=== PATIENT | female | born 1955 | race Caucasian/White ===

== ENCOUNTER → 2020-04-20 09:37 | Outpatient (BNVA) | payer BC, SELFPAY | PROVIDERS: Family Provider Nurse Practitioner; Visit Provider Family Medicine | DX: R10.13 Epigastric pain (principal) | CPT/HCPCS: 86677 ==

== ENCOUNTER 2022-02-08 19:09 | Inpatient (IN) | payer MEDICARE, SELFPAY ==
[2022-02-08] VITALS (7 sets, daily range): BP systolic 111–138; BP diastolic 76–98; PULSE 98–155; RESP 18–45; TEMP 36.5; O2SAT 89–98; BMI 25.0
--- NOTE | 2022-02-08 19:13 | ECG_ITS ---
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 Measurements Intervals [place] Rate: 149 P: 62 NH: 84 QRS: 10 QRSD: 142 T: 144 QT: 292 QTc: 461 Interpretive Statements SINUS TACHYCARDIA WITH SHORT NH INTERVAL, POSSIBLE ATRIAL FLUTTER LEFT BUNDLE BRANCH BLOCK [120+ ms QRS DURATION, 80+ ms Q/S IN V1/V2, 85+ ms R IN I/aVL/V5/V6] No previous ECG available for comparison Electronically Signed On 02-09-2022 17:01:11 CDT by Messi Torres M.D. [id number] f
--- NOTE | 2022-02-08 19:13 | XRR_ITS ---
PROCEDURE INFORMATION: Exam: XR Chest Exam date and time: 02/08/2022 7:21 PM Age: 66 years old Clinical indication: Shortness of breath; Patient HX: Chest pain, SOB; Additional info: Cp TECHNIQUE: Imaging protocol: XR of the chest. Views: 1 view. COMPARISON: No relevant prior studies available. FINDINGS: Lungs: Increased interstitial lung markings. Ill-defined opacity in the peripheral right lung base. Pleural spaces: Potential small volume right pleural effusion. No pneumothorax. Heart/Mediastinum: Mild cardiomegaly. Bones/joints: Visualized osseous structures are intact. XR/XR chest 1V portable [id number] IMPRESSION: Ill-defined opacity in the peripheral right lung base. This may represent atelectasis or infiltrate/pneumonia. Additionally, this could represent sequela of fluid overload given mild cardiomegaly, potential small volume right pleural effusion, and increased interstitial lung markings which could reflect interstitial pulmonary edema.
--- NOTE | 2022-02-08 19:28 | W.ED.SOB ---
HPI - SOB/Dyspnea General: Chief Complaint: Shortness of Breath/Dyspnea Stated Complaint: SOB Time Seen by Provider: 02/08/22 19:13 Source: patient and EMS Mode of arrival: EMS Limitations: no limitations History of Present Illness: HPI Narrative: 66-year-old female who is a longtime smoker states she had sudden onset of shortness of breath roughly 1 to 2 hours ago. Patient is currently on CPAP with EMS and is tachypneic and tachycardic and in respiratory distress. They state that she was hypoxic on room air she denies any chest pain denies any fever she states she is feels like she cannot get a deep breath then. Associated symptoms: Deny abdominal pain, chest pain, fever(s), nausea or vomiting Review of Systems Const: Denies: fever(s), chills, body aches or change in appetite Eyes: Denies: blurry vision or eye discomfort ENMT: Denies: throat pain or dental pain Card: Denies: chest pain Resp: Reports: dyspnea GI: Denies: abdominal pain, nausea, vomiting or diarrhea : Denies: dysuria Musc: Denies: neck pain or back pain Skin/Breast: Denies: rash Neuro: Denies: headache(s) Psych: Denies: depression All/Lymph: Denies: easy bruising All/Imm: Denies: urticaria PFSH ED PFSH: Medical History (Updated 02/08/22 @ 22:49 by Chandrakant Shaver MD) Acquired hypothyroidism Diabetes GERD (gastroesophageal reflux disease) Hyperlipidemia Hypertension LBBB (left bundle branch block) Vitamin D insufficiency Surgical History History of cholecystectomy (~2007) Family History Other Aneurysm CAD (coronary artery disease) CHF (congestive heart failure) Cancer Diabetes Social History Smoking and tobacco status: current every day smoker Quit status (tobacco): not considering quitting Smoking risk assessment/counseling performed?: Yes Alcohol intake: never Marital status: / Current occupational status: employed Physical Exam Const: COMMON NORMALS: patient oriented x3 GENERAL APPEARANCE: in distress and ill appearing HENMT: COMMON NORMALS: normocephalic and atraumatic HEAD & SCALP: normocephalic and atraumatic Eye: COMMON NORMALS: Equal, round and reactive pupils present and EOMs intact bilaterally PUPIL: Yes Equal, round and reactive pupils present Neck/C-Spine: COMMON NORMALS: full ROM and supple Chest: COMMONS NORMALS: normal inspection of the chest and normal palpation of entire chest wall Resp: EFFORT & INSPECTION: Yes tachypneic, Yes respiratory distress, Yes labored and Yes grunting AUSCULTATION: diminished lung sounds Cardio: COMMON NORMALS: regular rhythm and No murmurs present (Cardio) RATE: tachycardic RHYTHM: regular rhythm GI: COMMON NORMALS: Normal to inspection, nondistended, normoactive bowel sounds present, Soft to palpation, non-tender and no masses PALPATION: Yes Soft to palpation Extremity: COMMON NORMALS: normal to inspection and full ROM Neuro: COMMON NORMALS: patient oriented x3, moves all extremities and no focal motor deficits Psych: COMMON NORMALS: mental status grossly normal, Normal thought process present and cooperative THOUGHT PROCESS: Normal thought process present Skin: COMMON NORMALS: no rashes or lesions noted and no wounds GENERAL SKIN EXAM: no rashes or lesions noted Course Vital Signs: Vital signs: Vital Signs Pulse Rate 123 H 02/08/22 22:34 Respiratory Rate 20 H 02/08/22 22:34 Blood Pressure 126/90 02/08/22 22:34 Pulse Oximetry 95 02/08/22 22:34 MDM - SOB/Dyspnea Medical Decision Making Patient presents here with congestive heart failure with shortness of breath she is improving here on BiPAP did trial her off BiPAP she was requiring 5 L and became more short of breath so placed her back on the BiPAP CT shows no signs of pulmonary embolism spoke to hospitalist and will admit she has had no chest pain here. She has been tachycardic but is been in sinus tach. Lab Data : 02/08/22 19:35 02/08/22 19:35 Labs/Radiology: Radiology Impressions Chest X-Ray 02/08/22 19:13 IMPRESSION: Ill-defined opacity in the peripheral right lung base. This may represent atelectasis or infiltrate/pneumonia. Additionally, this could represent sequela of fluid overload given mild cardiomegaly, potential small volume right pleural effusion, and increased interstitial lung markings which could reflect interstitial pulmonary edema. Chest CTA 02/08/22 19:59 IMPRESSION: 1. Negative for pulmonary embolism. 2. Sequela of fluid overload/pulmonary edema with small volume pleural effusions, right greater than left, and findings suggestive of interstitial pulmonary edema. Atelectasis at the posterior lung bases. Laboratory Results WBC 12.0 10^3/uL (4.0-10.0) H 02/08/22 19:35 RBC 4.86 10^6/uL (4.1-5.3) 02/08/22 19:35 Hgb 14.8 g/dL (11.5-15.3) 02/08/22 19:35 Hct 44.9 % (37.0-47.0) 02/08/22 19:35 MCV 92.4 fl (81-99) 02/08/22 19:35 MCH 30.5 pg (28.0-34.0) 02/08/22 19:35 MCHC 33.0 g/dL (30.0-36.0) 02/08/22 19:35 RDW 14.8 % (12.1-15.1) 02/08/22 19:35 Plt Count 366 10^3/cmm (130-400) 02/08/22 19:35 MPV 9.8 fL (7.4-10.4) 02/08/22 19:35 Neut % (Auto) 85.5 % 02/08/22 19:35 Lymph % (Auto) 9.4 % 02/08/22 19:35 Louisa % (Auto) 3.6 % 02/08/22 19:35 Eos % (Auto) 0.6 % 02/08/22 19:35 Baso % (Auto) 0.3 % 02/08/22 19:35 Neut # (Auto) 10.28 10^3/uL (1.8-7.7) H 02/08/22 19:35 Lymph # (Auto) 1.1 10^3/uL (0.8-4.8) 02/08/22 19:35 Louisa # (Auto) 0.4 10^3/uL (0.2-0.9) 02/08/22 19:35 Eos # (Auto) 0.1 10^3/uL (0.0-0.8) 02/08/22 19:35 Baso # (Auto) 0.0 10^3/uL (0.0-0.1) 02/08/22 19:35 Nucleated RBC % (auto) 0 % 02/08/22 19:35 Nucleated RBCs # 0.0 /100WBC 02/08/22 19:35 PT 14.40 SECONDS (12.1-14.9) 02/08/22 19:35 INR 1.08 (0.8-1.2) 02/08/22 19:35 D-Dimer 0.99 ug/mIFEU (0-0.59) H 02/08/22 19:35 Specimen Type Arterial 02/08/22 20:45 Sample Site Brachial, right 02/08/22 20:45 ABG pH 7.39 (7.35-7.45) 02/08/22 20:45 ABG pCO2 38.7 mmHg (35-45) 02/08/22 20:45 ABG pO2 241.0 mmHg (80.0-100.0) H 02/08/22 20:45 ABG HCO3 23.3 mmol/L (22-26) 02/08/22 20:45 ABG Base Excess -1.4 mmol/L (-2.0-2.0) 02/08/22 20:45 Malik Test N/a 02/08/22 20:45 Hematocrit 42.3 % (37-47) 02/08/22 20:45 O2 Delivery Device Bipap 02/08/22 20:45 FiO2 65.0 % 02/08/22 20:45 Hostess Party Sales Representative ID Hinja 02/08/22 20:45 Sodium 137 mmol/L (136-145) 02/08/22 19:35 Potassium 4.6 mmol/L (3.5-5.1) 02/08/22 19:35 Chloride 100 mmol/L (98-107) 02/08/22 19:35 Carbon Dioxide 20 mmol/L (22-29) L 02/08/22 19:35 Anion Gap 21.6 (5-19) H 02/08/22 19:35 BUN 15 mg/dL (8-23) 02/08/22 19:35 Creatinine 1.0 mg/dL (0.5-0.9) H 02/08/22 19:35 GFR Calculation 55.6 mL/min (90-130) L 02/08/22 19:35 Glucose 253 mg/dL (65-115) H 02/08/22 19:35 Calculated Osmolality 293 mOsm/kg (285-295) 02/08/22 19:35 Calcium 9.1 mg/dL (8.5-10.5) 02/08/22 19:35 Total Bilirubin 0.2 mg/dL (0.15-1.2) 02/08/22 19:35 AST 41 U/L (0-32) H 02/08/22 19:35 ALT 50 U/L (0-33) H 02/08/22 19:35 Alkaline Phosphatase 101 IU/L (35-105) 02/08/22 19:35 Troponin T Baseline 78 ng/L (0-10) H 02/08/22 19:35 NT-Pro-B Natriuret Pep 7449 pg/mL (0-125) H 02/08/22 19:35 Total Protein 6.5 g/dL (6.6-8.7) L 02/08/22 19:35 Albumin 4.4 g/dL (3.5-5.2) 02/08/22 19:35 Globulin 2.1 g/dL (1.3-4.6) 02/08/22 19:35 EKG Data EKG 1: I personally reviewed and interpreted this EKG as follows: EKG Interpretation Date: 02/08/22 EKG interpretation time: 19:16 Interpretation: sinus tach hr [address] elevation lbbb qrs 142 qtc 377 EKG 2: I personally reviewed and interpreted this EKG as follows: EKG Interpretation Date: 02/08/22 EKG interpretation time: 20:32 Interpretation: sinus tach hr [address] elevation lbbb qrs 145 qtc 431 Critical Care Time Critical Care Time: Critical Care Time: Yes Total Critical Care Time: 40 Attestation: The high probability of a clinically significant, sudden or life threatening deterioration of the patient's resp system(s) required my full and direct attention, intervention and personal management. The critical care time is as shown. This time is in addition to time spent performing any reported procedures but includes the following: [x] Data and vital sign review and interpretation [x] Patient assessment, examination and intervention [x] Documentation [x] Medication orders and management Discharge Plan Discharge Patient Disposition: Admitted As Inpatient Admit Provider: William Dumas Clinical Impression: Congestive heart failure Condition: Stable Coding Level of Care Code ED Relish Maker for Chg Fwd Exam Comprehensive
[2022-02-08 19:44] LABS: Basophils % 0.3 %; Eosinophils # 0.1 10^3/uL (0.0-0.8); Eosinophils % 0.6 %; Hematocrit 44.9 % (37.0-47.0); Hemoglobin 14.8 g/dL (11.5-15.3); Lymphocytes # 1.1 10^3/uL (0.8-4.8); Lymphocytes % 9.4 %; Mean Corpuscular Hemoglobin 30.5 pg (28.0-34.0); Mean Corpuscular Volume 92.4 fl (81-99); Mean Platelet Volume 9.8 fL (7.4-10.4); Monocytes # 0.4 10^3/uL (0.2-0.9); Monocytes % 3.6 %; Neutrophils # 10.28 10^3/uL (1.8-7.7); Neutrophils % 85.5 %; Nucleated Red Blood Cells % 0 %; Platelet Count 366 10^3/cmm (130-400); Red Blood Count 4.86 10^6/uL (4.1-5.3); Red Cell Distribution Width 14.8 % (12.1-15.1)
[2022-02-08 19:55] LABS: INR 1.08 (0.8-1.2)
[2022-02-08 19:57] LABS: D Dimer 0.99 ug/mIFEU (0-0.59)
--- NOTE | 2022-02-08 19:59 | CTR_ITS ---
PROCEDURE INFORMATION: Exam: CTA Chest With Contrast Exam date and time: 02/08/2022 9:29 PM Age: 66 years old Clinical indication: Shortness of breath; Additional info: SOB TECHNIQUE: Imaging protocol: Computed tomographic angiography of the chest with contrast. 3D rendering (Not supervised by radiologist): MIP and/or 3D reconstructed images were created by the technologist. Radiation optimization: All CT scans at this facility use at least one of these dose optimization techniques: automated exposure control; mA and/or kV adjustment per patient size (includes targeted exams where dose is matched to clinical indication); or iterative reconstruction. Contrast material: OMNIPAQUE 350; Contrast volume: 75 ml; Contrast route: INTRAVENOUS (IV); COMPARISON: CR (CHEST, ) 02/08/2022 7:21 PM RADIATION DOSE METRICS: Total DLP (mGy-cm): 545.03 FINDINGS: Pulmonary arteries: Normal. No pulmonary emboli. Aorta: Unremarkable. No aortic aneurysm. No aortic dissection. Lungs: Atelectasis noted at the posterior lung bases adjacent to the effusions. No consolidation. Interlobular septal thickening noted within both lungs. Pleural spaces: Small volume bilateral pleural effusions, right greater than left. No pneumothorax. Heart: Coronary artery calcifications noted. Cardiomegaly. No pericardial effusion. Lymph nodes: Unremarkable. No enlarged lymph nodes. Bones/joints: Unremarkable. No acute fracture. Soft tissues: Unremarkable. CT/CT angio chest PE protcl [id number] IMPRESSION: 1. Negative for pulmonary embolism. 2. Sequela of fluid overload/pulmonary edema with small volume pleural effusions, right greater than left, and findings suggestive of interstitial pulmonary edema. Atelectasis at the posterior lung bases.
[2022-02-08 20:07] LABS: Troponin(5th) Baseline 78 ng/L (0-10)
[2022-02-08 20:17] LABS: Alanine Aminotransferase 50 U/L (0-33); Albumin Level 4.4 g/dL (3.5-5.2); Alkaline Phosphatase 101 IU/L (35-105); Aspartate Amino Transferase 41 U/L (0-32); Blood Urea Nitrogen 15 mg/dL (8-23); Calcium 9.1 mg/dL (8.5-10.5); Carbon Dioxide 20 mmol/L (22-29); Chloride 100 mmol/L (98-107); Globulin 2.1 g/dL (1.3-4.6); Glomerular Filtration Rate 55.6 mL/min (90-130); Glucose 253 mg/dL (65-115); NT Pro B Type Natriuretic Pept 7449 pg/mL (0-125); Osmolality Calculated 293 mOsm/kg (285-295); Sodium 137 mmol/L (136-145); Total Bilirubin 0.2 mg/dL (0.15-1.2); Total Protein 6.5 g/dL (6.6-8.7)
[2022-02-08 20:20] LABS: Anion Gap 21.6 (5-19); Potassium 4.6 mmol/L (3.5-5.1)
[2022-02-08 20:47] LABS: ABG PCO2 38.7 mmHg (35-45); ABG PH Result 7.39 (7.35-7.45); Arterial Blood Gas Hematocrit 42.3 % (37-47); Base Excess ABG -1.4 mmol/L (-2.0-2.0); Blood Gas Sample Site Brachial, right; Blood Gas Sample Type Arterial; HCO3 ABG 23.3 mmol/L (22-26); Oxygen Device BIPAP
--- NOTE | 2022-02-08 21:13 | ECG_ITS ---
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 Measurements Intervals [place] Rate: 116 P: 64 [place]: 152 QRS: 22 QRSD: 145 T: 167 QT: 362 QTc: 503 Interpretive Statements SINUS TACHYCARDIA LEFT ATRIAL ENLARGEMENT [-0.15mV P-WAVE IN V1/V2] LEFT BUNDLE BRANCH BLOCK [120+ ms QRS DURATION, 80+ ms Q/S IN V1/V2, 85+ ms R IN I/aVL/V5/V6] Compared to ECG 02/08/2022 19:16:44 Atrial abnormality now present Electronically Signed On 02-09-2022 17:03:52 CDT by Messi Torres M.D. [email or web address]/[id number] f
[2022-02-08] MEDS: iohexol 350 mg/mL 100 mL Btl IV (21:30)
[2022-02-08] MEDS: cefTRIAXone 1,000 MG in sodium chloride 0.9% (plus) 50 ML 100 MG IV (22:09)
[2022-02-08] MEDS: FUROsemide 10 mg/mL SDV 10mL 60 MG IVP (22:27)
[2022-02-08] MEDS: azithromycin 500 MG in sodium chloride 0.9% 250 ML 250 MG IV (22:28)
--- NOTE | 2022-02-08 22:51 | P.HP_ITS ---
Providers/Chief Complaint Admitting Physician: William Dumas MD Chief Complaint: SOB History of Present Illness Jessica Larkin is a 66 year old female with past medical history of hypertension hypothyroidism chronic smoker 2 pack a day for the last 50 years, came in with worsening shortness of breath going on for about a month, accompanied with orthopnea and PND.she is also complaining of productive cough with whitish sputum. She is currently denying chest pain, palpitation, fever, nausea vomiting, diaphoresis. Pertinent imaging studies done in the ER: X-ray chest: Suggestive of pulmonary vascular congestion CTA chest: Negative for pulmonary embolism, small bilateral pleural effusion right greater than left, Interstitial edema.Atelectasis at the posterior lung bases. EKG sinus tach with left bundle branch block Pertinent labs: WBC:12 , H&H 14 and 44, PLT : 366 , serum sodium 137 serum potassium 4.6, BUN serum creatinine 15/ 1 , AST 41, ALT 50,ALP: 101 , Troponin:78,264, 386 proBNP: 7449 ABG: pH 7.39 PCO2 38, PO2 241 , FIO2: 65 % Review of Systems General: Reports: 10 or more systems reviewed and unremarkable except in HPI and below Const: Denies: fever(s), chills, body aches, change in appetite or diaphoresis Card: Reports: swelling of feet/ankles, dyspnea on exertion and orthopnea; Denies: palpitations, edema or leg pain with exertion Resp: Reports: dyspnea, productive cough and wheezing; Denies: pain on inspiration GI: Denies: abdominal pain, nausea, vomiting, diarrhea or constipation : Denies: flank pain Musc: Reports: extremity swelling; Denies: back pain or extremity pain Neuro: Denies: headache(s), difficulty walking or confusion Medications/Allergies Home Medications Medication Instructions Recorded Confirmed Last Taken Type chromium 100 mcg tablet 200 mcg PO DAILY tab 11/09/19 04/20/20 Unknown History levothyroxine 125 mcg tablet 125 mcg PO DAILY 11/09/19 04/20/20 Unknown History liothyronine 5 mcg tablet 5 mcg PO DAILY 11/09/19 04/20/20 Unknown History cholecalciferol (vitamin D3) 125 5,000 unit PO DAILY #30 tab 04/20/20 04/20/20 Unknown Rx mcg (5,000 unit) tablet (Vitamin D3) omeprazole 40 mg capsule,delayed 40 mg PO BID #60 cap 04/20/20 04/20/20 Unknown Rx release potassium chloride 10 mEq 10 meq PO DAILY #30 tab 04/20/20 04/20/20 Unknown Rx tablet,extended release selenium 50 mcg tablet 50 mcg PO DAILY 04/20/20 04/20/20 Unknown History sucralfate 1 gram tablet (Carafate) 1 gm PO QID #120 tab 04/20/20 04/20/20 Unknown Rx albuterol sulfate 90 mcg/actuation See Rx Instructions .ROUTE 04/28/21 Unknown Rx aerosol inhaler .COMPLEX #18 g furosemide 20 mg tablet See Rx Instructions .ROUTE 05/12/21 Unknown Rx .COMPLEX #30 tab lisinopril 40 mg tablet See Rx Instructions .ROUTE 09/08/21 Unknown Rx .COMPLEX #30 tab Allergies Allergy/AdvReac Type Severity Reaction Status Date / Time levofloxacin [From Levaquin] Allergy RASH Verified 04/20/20 09:13 PFSH Acute PFSH: Medical History (Updated 02/09/22 @ 00:35 by William Dumas MD) Acquired hypothyroidism Diabetes GERD (gastroesophageal reflux disease) Hyperlipidemia Hypertension LBBB (left bundle branch block) Vitamin D insufficiency Surgical History History of cholecystectomy (~2007) Family History Other Aneurysm CAD (coronary artery disease) CHF (congestive heart failure) Cancer Diabetes Social History Smoking and tobacco status: current every day smoker Quit status (tobacco): not considering quitting Smoking risk assessment/counseling performed?: Yes Alcohol intake: never Marital status: / Current occupational status: employed Vitals/I&O/Wt Last Vital Signs Pulse 123 H 02/08/22 22:34 Resp 20 H 02/08/22 22:34 BP 126/90 02/08/22 22:34 Pulse Ox 95 02/08/22 22:34 Weight last 48 hrs Weight 70.307 kg Physical Exam Const: COMMON NORMALS: patient oriented x3 HENMT: COMMON NORMALS: normocephalic and atraumatic HEAD & SCALP: normocephalic and atraumatic Resp: EFFORT & INSPECTION: Yes symmetric chest movement AUSCULTATION: clear to auscultation bilaterally OTHER: Patient is tachypneic tachycardic, bilateral expiratory wheezing, diminished air entry bilaterally Cardio: COMMON NORMALS: regular rate, regular rhythm, S1 normal heart sound present, S2 normal heart sound present, No gallops present (Cardio), No murmurs present (Cardio), No rub (Cardio) and Peripheral pulses 2+ throughout RATE: regular rate RHYTHM: regular rhythm HEART SOUNDS: S1 normal heart sound present and S2 normal heart sound present PERIPHERAL PULSES: Peripheral pulses 2+ throughout GI: COMMON NORMALS: Normal to inspection, nondistended, normoactive bowel sounds present, Soft to palpation, non-tender, No hepatosplenomegaly present and no masses AUSCULTATION: Yes normoactive bowel sounds PALPATION: Yes Soft to palpation and Yes No hepatosplenomegaly present RECTAL EXAM: deferred Extremity: COMMON NORMALS: no clubbing, cyanosis or edema and no pedal edema Neuro: COMMON NORMALS: patient oriented x3 Data : 02/09/22 02:04 02/09/22 02:04 Micro: Microbiology 02/08/22 20:42 Blood Culture - Preliminary Blood SPECIMEN COLLECTED 02/08/22 20:20 Blood Culture - Preliminary Blood SPECIMEN COLLECTED A&P Assessment and plan (1) Congestive heart failure: Status: Acute (2) LBBB (left bundle branch block): Status: Acute (3) Acquired hypothyroidism: Status: Acute (4) Hypertension: Status: Acute (5) Hyperlipidemia: Status: Acute (6) Vitamin D insufficiency: Status: Acute (7) Dyspnea: Status: Acute (8) NSTEMI (non-ST elevated myocardial infarction): Status: Acute Plan 66 year old female with past medical history of hypertension hypothyroidism chronic smoker 2 pack a day for the last 50 years, came in with worsening shortness of breath going on for about a month, accompanied with orthopnea and PND.she is also complaining of productive cough with whitish sputum. She is currently denying chest pain, palpitation, fever, nausea vomiting, diaphoresis. Assessment: NSTEMI Decompensated heart failure: COPD exacerbation Hypertension Hypothyroidism Chronic smoking Plan: 2D echo TSH Lasix 40 IV twice daily Lisinopril 40 mg p.o. daily Metoprolol tartrate 12.5 mg p.o. twice daily Aspirin 81 mg p.o. daily, statin, beta-coy, therapeutic anticoagulation Intake output charting Daily weight k>4, mg>2 Continue telemetry monitoring Continue BiPAP for now DuoNebs Solu-Medrol 60 mg IV twice daily Azithromycin IV daily Continue levothyroxine Lovenox for DVT prophylaxis Cardiology on board CODE STATUS: Limited resuscitation Attestations Medical Necessity Statement*: Patient is to be in hospital for management of decompensated heart failure.Anticipated length of stay greater than 2 midnights. Coding Level of Care Code Acute Broadcast Correspondent for [facility] Fwd Exam Detailed Diagnoses Congestive heart failure I50.9 LBBB (left bundle branch block) I44.7 Acquired hypothyroidism E03.9 Hypertension I10 Hyperlipidemia E78.5 Vitamin D insufficiency E55.9 Dyspnea R06.00 NSTEMI (non-ST elevated myocardial infarction) I21.4
[2022-02-08] MEDS: enoxaparin 40 mg/0.4 mL Syringe SUBCUT (23:53)
[2022-02-08] MEDS: LORazepam 1 mg Tablet PO (23:54)
[2022-02-09] VITALS (17 sets, daily range): BP systolic 93–120; BP diastolic 56–83; PULSE 101–117; RESP 15–18; TEMP 36.6–37.2; O2SAT 90–99
[2022-02-09 00:27] LABS: Troponin 5 2HR 264.4 ng/L (0-10); Troponin 5 2HR Delta 186.4 ABS# (0-10)
[2022-02-09] MEDS: enoxaparin 30 mg/0.3 mL Syringe SUBCUT (00:50)
--- NOTE | 2022-02-09 01:13 | ECG_ITS ---
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 Measurements Intervals [place] Rate: 102 P: 72 VT: 138 QRS: -11 QRSD: 148 T: 146 QT: 391 QTc: 511 Interpretive Statements SINUS TACHYCARDIA LEFT ATRIAL ENLARGEMENT [-0.15mV P-WAVE IN V1/V2] LEFT BUNDLE BRANCH BLOCK [120+ ms QRS DURATION, 80+ ms Q/S IN V1/V2, 85+ ms R IN I/aVL/V5/V6] Compared to ECG 02/08/2022 20:32:09 No significant changes Electronically Signed On 02-09-2022 17:02:52 CDT by Messi Torres M.D. [id number]
[2022-02-09 02:35] LABS: Basophils % 0.2 %; Eosinophils % 0.1 %; Hemoglobin 13.5 g/dL (11.5-15.3); Lymphocytes # 0.5 10^3/uL (0.8-4.8); Lymphocytes % 4.6 %; Mean Corpuscular HGB Conc 32.1 g/dL (30.0-36.0); Mean Corpuscular Hemoglobin 30.6 pg (28.0-34.0); Mean Corpuscular Volume 95.2 fl (81-99); Mean Platelet Volume 9.7 fL (7.4-10.4); Monocytes # 0.2 10^3/uL (0.2-0.9); Monocytes % 2.3 %; Neutrophils # 9.46 10^3/uL (1.8-7.7); Neutrophils % 92.3 %; Nucleated Red Blood Cells % 0 %; Platelet Count 256 10^3/cmm (130-400); Red Blood Count 4.41 10^6/uL (4.1-5.3); Red Cell Distribution Width 14.7 % (12.1-15.1); White Blood Count 10.3 10^3/uL (4.0-10.0)
[2022-02-09 03:04] LABS: Alanine Aminotransferase 44 U/L (0-33); Albumin Level 3.9 g/dL (3.5-5.2); Alkaline Phosphatase 82 IU/L (35-105); Anion Gap 15.2 (5-19); Aspartate Amino Transferase 41 U/L (0-32); Blood Urea Nitrogen 15 mg/dL (8-23); Calcium 8.9 mg/dL (8.5-10.5); Carbon Dioxide 26 mmol/L (22-29); Chloride 101 mmol/L (98-107); Globulin 2.5 g/dL (1.3-4.6); Glomerular Filtration Rate 62.8 mL/min (90-130); Glucose 116 mg/dL (65-115); Magnesium 2.4 mg/dL (1.7-2.3); Osmolality Calculated 288 mOsm/kg (285-295); Potassium 4.2 mmol/L (3.5-5.1); Sodium 138 mmol/L (136-145); Thyroid Stimulating Hormone 1.44 uIU/mL (0.27-4.20); Total Bilirubin 0.4 mg/dL (0.15-1.2); Total Protein 6.4 g/dL (6.6-8.7)
[2022-02-09 03:43] LABS: Troponin 5 6HR 386.4 ng/L (0-10); Troponin 5 6HR Delta 308.4 ng/L (0-12)
[2022-02-09 06:06] LABS: INR 1.15 (0.8-1.2)
[2022-02-09 06:07] LABS: Partial Thromboplastin Time 35.9 SECONDS (23.9-36.7)
[2022-02-09] MEDS: FUROsemide 10 mg/mL SDV 4mL 40 MG IVP ×2 (06:34→18:07)
[2022-02-09] MEDS: azithromycin 500 MG in sodium chloride 0.9% 250 ML 250 MG IV (06:35)
--- NOTE | 2022-02-09 07:08 | PM.CONSULT ---
Providers/Reason For Consult Consulting Physician/Specialty*: Messi Torres MD/Cardiology Reason for Consult*: Congestive heart failure/ NSTEMI Requesting Physician: Dr Dumas Attending Physician: William uDmas MD History of Present Illness History of Present Illness Jessica Larkin is a 66 year old female with past medical history of hypertension, hypothyroidism, current smoker who presented to the hospital with 3 weeks of worsening shortness of breath. It is accompanied with orthopnea. She is also noticing productive cough for the same duration. She denies chest pain however says that at times she has felt pressure. EKG showed sinus tachycardia with a left bundle branch block. Her troponin trended up from 78 to 386 at 6 hours. NT proBNP is significantly elevated and is 7449. CXR shows small bilateral pleural effusion and pulmonary edema. Review of Systems General: Reports: 10 or more systems reviewed and unremarkable except in HPI and below Const: Denies: fever(s), chills, body aches, change in appetite or diaphoresis Card: Reports: swelling of feet/ankles, dyspnea on exertion and orthopnea; Denies: palpitations, edema or leg pain with exertion Resp: Reports: dyspnea, productive cough and wheezing; Denies: pain on inspiration GI: Denies: abdominal pain, nausea, vomiting, diarrhea or constipation : Denies: flank pain Musc: Reports: extremity swelling; Denies: back pain or extremity pain Neuro: Denies: headache(s), difficulty walking or confusion Medications/Allergies Home Medications Medication Instructions Recorded Confirmed Last Taken Type liothyronine 5 mcg tablet 5 mcg PO DAILY 11/09/19 02/09/22 Unknown History cholecalciferol (vitamin D3) 125 5,000 unit PO DAILY #30 tab 04/20/20 02/09/22 Unknown Rx mcg (5,000 unit) tablet (Vitamin D3) omeprazole 40 mg capsule,delayed 40 mg PO BID #60 cap 04/20/20 02/09/22 Unknown Rx release potassium chloride 10 mEq 10 meq PO DAILY #30 tab 04/20/20 02/09/22 Unknown Rx tablet,extended release selenium 50 mcg tablet 50 mcg PO DAILY 04/20/20 02/09/22 Unknown History sucralfate 1 gram tablet (Carafate) 1 gm PO QID #120 tab 04/20/20 02/09/22 Unknown Rx albuterol sulfate 90 mcg/actuation See Rx Instructions .ROUTE 08/27/21 06/10/22 Unknown Rx aerosol inhaler .COMPLEX #18 g alprazolam 0.25 mg tablet 0.25 mg PO DAILY PRN 02/09/22 02/09/22 Unknown History ascorbic acid (vitamin C) 250 mg 250 mg PO DAILY 02/09/22 02/09/22 Unknown History tablet (Vitamin C) aspirin 81 mg tablet,delayed 81 mg PO DAILY 02/09/22 02/09/22 Unknown History release budesonide 0.5 mg/2 mL suspension 0.5 mg INHALATION BID 02/09/22 02/09/22 Unknown History for nebulization buspirone 15 mg tablet 15 mg PO BID 02/09/22 02/09/22 Unknown History chromium picolinate 200 mcg tablet 200 mcg PO DAILY 02/09/22 02/09/22 Unknown History furosemide 20 mg tablet 20 mg PO DAILY 02/09/22 02/09/22 Unknown History ipratropium 0.5 mg-albuterol 3 mg 3 ml INHALATION QID 02/09/22 02/09/22 Unknown History (2.5 mg base)/3 mL nebulization soln levothyroxine 100 mcg tablet 100 mcg PO DAILY 02/09/22 02/09/22 Unknown History (Synthroid) lisinopril 40 mg tablet 40 mg PO DAILY 02/09/22 02/09/22 Unknown History magnesium 30 mg tablet 30 mg PO DAILY 02/09/22 02/09/22 Unknown History niacin 50 mg tablet 50 mg PO DAILY 02/09/22 02/09/22 Unknown History zinc 50 mg tablet 50 mg PO DAILY 02/09/22 02/09/22 Unknown History Allergies Allergy/AdvReac Type Severity Reaction Status Date / Time levofloxacin [From Levaquin] Allergy RASH Verified 02/09/22 09:14 Current Medications Generic Name Dose Route Start Last Admin Trade Name Freq PRN Reason Stop Dose Admin Furosemide 40 mg 02/09/22 07:00 02/09/22 06:34 Furosemide 10 Mg/Ml Sdv 4ml IVP 40 mg Q12H MADIE Administration Azithromycin 500 mg/ Sodium 250 mls @ 250 mls/hr 02/09/22 07:00 02/09/22 06:35 Chloride IV 250 mls/hr Q24H MADIE Administration Protocol Lorazepam 1 mg 02/08/22 23:12 02/08/22 23:54 Lorazepam 1 Mg Tablet PO 1 mg TID PRN Administration ANXIETY Methylprednisolone Sodium Succinate 60 mg 02/08/22 23:15 02/08/22 23:53 Methylprednisolone Sod Succ 125 Mg/2 Ml Inj IVP 60 mg Q12H MADIE Administration PFSH Acute PFSH: Medical History Acquired hypothyroidism Diabetes GERD (gastroesophageal reflux disease) Hyperlipidemia Hypertension LBBB (left bundle branch block) Vitamin D insufficiency Surgical History History of cholecystectomy (~2007) Family History Other Aneurysm CAD (coronary artery disease) CHF (congestive heart failure) Cancer Diabetes Social History Smoking and tobacco status: current every day smoker Quit status (tobacco): not considering quitting Smoking risk assessment/counseling performed?: Yes Alcohol intake: never Marital status: / Current occupational status: employed Vitals/I&O/Wt Last Vital Signs Temp 98.8 F 02/09/22 04:00 Pulse 107 H 02/09/22 05:25 Resp 16 02/09/22 04:00 BP 120/83 02/09/22 04:00 Pulse Ox 99 02/09/22 05:25 02/08/22 02/09/22 02/09/22 22:59 06:59 14:59 Intake Total 300 / 300 Balance 300 / 300 Weight last 48 hrs Weight 156 lb 12.8 oz Weight 155 lb Physical Exam Narrative: GENERAL: Patient is alert, awake and oriented x3. [] NECK: No jugular vein distension. [] HEENT: No cyanosis. No icterus. No pallor. [] HEART: Regular S1 and S2. Grade 3/6 systolic murmur LUNGS: Mild crackles bilaterally ABDOMEN: Soft, nontender and nondistended. Positive bowel sounds. No guarding, rebound or tenderness. [] CENTRAL NERVOUS SYSTEM: Grossly nonfocal. [] EXTREMITIES: Lower extremities with 1+ edema bilaterally. Pulses palpable in the lower extremities, both dorsalis pedis and posterior tibial. [] Data : 02/09/22 02:04 02/09/22 02:04 Micro: Microbiology 02/08/22 20:42 Blood Culture - Preliminary Blood SPECIMEN COLLECTED 02/08/22 20:20 Blood Culture - Preliminary Blood SPECIMEN COLLECTED A&P Assessment and plan (1) NSTEMI (non-ST elevated myocardial infarction): Status: Acute (2) Congestive heart failure: Status: Acute (3) LBBB (left bundle branch block): Status: Acute (4) Diabetes: Status: Acute (5) Hypertension: Status: Acute (6) Hyperlipidemia: Status: Acute Plan Has presented with congestive heart failure symptoms and has significant troponin elevation. She is significantly volume overloaded at this time. We will diurese her. Once she is euvolemic, will need a coronary angiogram. Continue IV Lasix 40 mg twice daily. Continue aspirin and IV anticoagulation. Order echocardiogram Strict I and Os. Thank you for involving with us with care of this patient. We will continue to follow. Please call with questions. Consult Attestations Medical Necessity Statement: Care expected to cross 2 midnights. 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
[2022-02-09] MEDS: levothyroxine 125 mcg Tablet PO (08:35)
[2022-02-09] MEDS: pantoprazole DR 40 mg Tablet PO (08:35)
[2022-02-09] MEDS: potassium chloride ER 10 mEq Tablet PO (08:35)
[2022-02-09] MEDS: aspirin 81 mg EC Tablet PO (08:35)
[2022-02-09] MEDS: liothyronine 5 mcg Tablet PO (08:37)
[2022-02-09] MEDS: enoxaparin 80 mg/0.8 mL Syringe 70 MG SUBCUT ×2 (08:37→19:52)
[2022-02-09] MEDS: LORazepam 1 mg Tablet PO (08:40)
[2022-02-09] MEDS: metoprolol tartrate 25 mg Tablet 12.5 MG PO ×2 (08:40→19:52)
--- NOTE | 2022-02-09 08:45 | PC.NURSE ---
patient expressed concerns about low blood pressure spoke with Dr nogueira at bedside instructions received to hold lisinopril at this time
[2022-02-09] MEDS: ipratropium-albuterol 3 mL Neb INHALATION ×3 (09:19→20:35)
--- NOTE | 2022-02-09 11:55 | PC.CHAP ---
Pastoral Care Encounter/Spiritual Assessment Type of Contact [] Declined parachute marker visit [] Patient/Family/Request visit [] Outpatient visit [] Follow-up visit [] Physician referral [] Code/Alert [x] Routine visit [] Staff referral [] Actively dying [] Patient sleeping [] Family support [] x [] Out of room [] Palliative care [] [] Receiving care in room [] Pre-surgical visit [] Trauma [] Long length of stay [] ICU visit [] Other: Relational/Emotional Strength [x] Patient feels connected with others/family/visitors/staff [] Distress [] Loneliness/isolation [] Abandonment Spirituality of Patient [x] Person of Nayeli [x] Attends Jew of their Nayeli [x] Believes in Prayer [] Reads Bible or Scientologist materials [] There are Spiritual issues to be addressed 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 Interventions [x] Prayer x[] Active listening [x] Non-anxious presence []x Spiritual/emotional support [] Crisis/trauma care [] Spiritual counseling [] Bereavement support [] Provided bereavement packet [] Provided Bible/devotional materials [] Provided toy/stuffed animal, coloring book to patient or family member [] Provided Communion [] Anointing/[place] [] Salvation [x] Completed spiritual assessment [] Other: Impact on Illness or Injury [] Angry [] Fearful [] Anxious [] Often cries [] Exhaustion [] Unable to work [] Unable to attend tenriism [] Unable to walk/stand [] Unable to read [] Unable to drive [] Unable to eat/drink [] Unable to sleep [] Unable to be with family [] Patient intubated [] Other: Summary Time spent with patient 10 min
--- NOTE | 2022-02-09 12:05 | P.PN_ITS ---
Subjective Subjective: Seen this AM. Patient is on nasal cannula oxygen 2 L. She states all this is new for her. She has been having progressively worsening shortness of breath over the course of the last couple of weeks. Also since last 2 weeks she has been noticing swelling in her lower extremities and having more and more shortness of breath. She states her mother has a history of congestive heart failure. She is also a smoker and has underlying COPD. Vitals/I&O/Wt Last Vital Signs Temp 99.0 F 02/09/22 11:35 Pulse 110 H 02/09/22 11:35 Resp 18 02/09/22 11:35 BP 93/56 02/09/22 11:35 Pulse Ox 95 02/09/22 11:35 02/08/22 02/09/22 02/09/22 22:59 06:59 14:59 Intake Total 300 / 300 250 / 250 Balance 300 / 300 250 / 250 Weight last 48 hrs Weight 71.123 kg Weight 70.307 kg Physical Exam Narrative: General: Alert oriented x3, patient seen standing up at the bedside with nasal cannula oxygen talking to her daughter. Frail-appearing. No conversational dyspnea no active shortness of breath when seen, no acute distress. HEENT: Normocephalic, atraumatic, EOMI, breathing normally on 2 L nasal cannula Cardio: Regular rate rhythm, normal S1-S2, no murmurs, JVD elevated Respiratory: Bibasilar crackles appreciated, no gross wheezes or rhonchi. GI: Abdomen soft, nontender, nondistended, bowel sounds + Behavior: Appropriate and cooperative Extremities: 1+ pitting edema bilateral lower extremities Daughter present at bedside Data : 02/09/22 02:04 02/09/22 02:04 Micro: Microbiology 02/08/22 20:42 Blood Culture - Preliminary Blood SPECIMEN COLLECTED 02/08/22 20:20 Blood Culture - Preliminary Blood SPECIMEN COLLECTED A&P Assessment and plan (1) NSTEMI (non-ST elevated myocardial infarction): Status: Acute (2) Dyspnea: Status: Acute (3) Congestive heart failure: Status: Acute (4) Chest pain: Status: Acute Qualifiers: Chest pain type: chest pain on breathing Qualified Code(s): R07.1 - Chest pain on breathing (5) LBBB (left bundle branch block): Status: Acute (6) Diabetes: Status: Acute (7) Acquired hypothyroidism: Status: Acute (8) Hypertension: Status: Acute (9) Hyperlipidemia: Status: Acute (10) Heart failure: Status: Acute Plan #Acute congestive heart failure, unsure systolic versus diastolic #NSTEMI #Hypertension #Hyperlipidemia #History of left bundle branch block ? Troponins positive. Continue therapeutic Lovenox, aspirin, statin, beta-b locker ? Keep potassium above 4, magnesium above 2 ? Continue on telemetry ? Continue to aggressively diurese patient. Lasix 40 IV twice daily ? Continue lisinopril 40 daily ? Metoprolol 12.5 twice daily ? Check lipid profile -Plan for angiogram after patient has diuresed well ? Cardiology following and on board. ? Check echo #COPD exacerbation ? Solu-Medrol 40 IV twice daily, azithromycin IV daily x5 days total - duoneb q6h prn ? Has not had formal PFTs done ? We will need pulmonology referral at discharge #GERD #Borderline diabetes mellitus #Hypothyroidism ? Continue levothyroxine -Low intensity insulin sliding scale ? Check A1c DVT prophylaxis: Lovenox Attestations Medical Necessity Statement*: Requires inpatient level care for management of acute congestive heart failure, NSTEMI, COPD exacerbation Anticipate her staying in the hospital longer than 72 hours at this point. 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
--- NOTE | 2022-02-09 22:47 | USCV_ITS ---
Jessica Larkin Age: 66 Gender: F : 1955 Exam Date: 02/09/2022 07:56 Ordering Phys: William Dumas MD Technologist: KISHA Exam Location: [facility] – [place] Indication: Shortness of breath BP: 120 / 83 HR: 109 Rhythm: Sinus Technical Quality: Adequate MEASUREMENTS (Male / Female) Normal Values 2D ECHO LV Diastolic Diameter PLAX 5.8 cm 4.2 - 5.9 / 3.9 - 5.3 cm LV Systolic Diameter PLAX 4.7 cm IVS Diastolic Thickness 0.8 cm 0.6 - 1.0 / 0.6 - 0.9 cm IVS Systolic Thickness 1.5 cm LVPW Diastolic Thickness 1.2 cm 0.6 - 1.0 / 0.6 - 0.9 cm LVPW Systolic Thickness 1.7 cm LVOT Diameter 2.0 cm LV Ejection Fraction 2D Teich 39.5 % LV Ejection Fraction MOD 2C 38.4 % LV Ejection Fraction 2C AL 38.5 % LA Diameter 3.3 cm LA Width 3.7 cm LA Height 3.5 cm RA Width 2.3 cm RA Height 3.1 cm Aorta at Sinotubular Diameter 2.0 cm IVC Diameter 2.1 cm M-MODE Aortic Annulus Diameter 2.8 cm LA Ao Ratio MM 1.2 MV E Point Septal Separation 1.6 cm DOPPLER AV Peak Velocity 136.0 cm/s LVOT Peak Velocity 86.0 cm/s AV Area Cont Eq vti 2.2 cm squared AV Area Cont Eq pk 2.0 cm squared MV Area PHT 5.0 cm squared MV E' Velocity 143.0 cm/s TV Peak E Velocity 49.0 cm/s Right Atrial Pressure 8.0 mmHg RV Acceleration Time 0.1 s RV Ejection Time 0.3 s RV AcT/ET 0.4 FINDINGS Left Ventricle Diffuse hypokinesia of the left to end of the with an ejection fraction of around 30%. Mildly dilated LV cavity Right Ventricle Normal right ventricular size and systolic function. Right Atrium A patient of normal size Left Atrium Mildly increased left atrial size. Mitral Valve Thickened mitral valve. Mild mitral annular calcification. Possibly severe eccentric mitral regurgitation, encircling the left atrium Aortic Valve Thickened aortic valve. Tricuspid Valve No gross morphologic abnormalities were noted.trace tricuspid valve regurgitation. Pulmonic Valve PA pressure could not be evaluated because of the poor Doppler signals Pericardium Normal pericardium without effusion. Aorta Normal ascending aorta dimension. IVC Dilated IVC with partial collapsibility. Estimated RA pressure 15 mmHg CONCLUSIONS Diffuse hypokinesia of the left to end of the with an ejection fraction of around 30%. Mildly dilated LV cavity. Mildly increased left atrial size. Possibly severe eccentric mitral regurgitation, encircling the left atrium. Thickened mitral valve. Mild mitral annular calcification. Thickened aortic valve. There is no pericardial effusion. There are no intracardiac masses. Compared to the study from 04/09/2014, there is significant drop in the LV ejection fraction and development of severe mitral regurgitation Dr Clive Reaves MD FAC (Electronically Signed) Final Date: 09 February 2022 19:16 S
[2022-02-10] VITALS (12 sets, daily range): BP systolic 98–126; BP diastolic 62–79; PULSE 86–119; RESP 15–18; TEMP 36.4–37.1; O2SAT 93–98
--- NOTE | 2022-02-10 02:09 | PC.NURSE ---
At beginning of shift this RN entered room. Pt appeared tearful. Stating she was feeling anxious about changing rooms. This RN educated pt on the importance of increased monitoring. Pt verbalized understanding but stated she did not want to change rooms and potentially be in a room with someone who could be contagious. Pt also verbalized concerns about her family not being able to remain at bedside. This RN stated family could remain at her bedside. Pt reported that would help her anxiety but continue to state that she would prefer to stay in her current room for the night. Frequent rounding has been performed. Pt v/s wnl. Denies SOB or any other concerns or needs.
[2022-02-10] MEDS: ipratropium-albuterol 3 mL Neb INHALATION ×3 (02:44→14:19)
[2022-02-10 04:30] LABS: Basophils % 0.1 %; Hematocrit 39.2 % (37.0-47.0); Hemoglobin 13.1 g/dL (11.5-15.3); Lymphocytes # 0.4 10^3/uL (0.8-4.8); Lymphocytes % 4.3 %; Mean Corpuscular HGB Conc 33.4 g/dL (30.0-36.0); Mean Corpuscular Hemoglobin 30.3 pg (28.0-34.0); Mean Corpuscular Volume 90.5 fl (81-99); Mean Platelet Volume 9.9 fL (7.4-10.4); Monocytes # 0.1 10^3/uL (0.2-0.9); Monocytes % 1.3 %; Neutrophils # 8.69 10^3/uL (1.8-7.7); Neutrophils % 93.9 %; Nucleated Red Blood Cells % 0 %; Platelet Count 267 10^3/cmm (130-400); Red Blood Count 4.33 10^6/uL (4.1-5.3); Red Cell Distribution Width 14.7 % (12.1-15.1); White Blood Count 9.3 10^3/uL (4.0-10.0)
[2022-02-10 04:48] LABS: Alanine Aminotransferase 32 U/L (0-33); Albumin Level 3.9 g/dL (3.5-5.2); Alkaline Phosphatase 73 IU/L (35-105); Aspartate Amino Transferase 23 U/L (0-32); Blood Urea Nitrogen 16 mg/dL (8-23); Carbon Dioxide 26 mmol/L (22-29); Chloride 97 mmol/L (98-107); Globulin 2.2 g/dL (1.3-4.6); Glucose 159 mg/dL (65-115); Magnesium 2.2 mg/dL (1.7-2.3); Osmolality Calculated 283 mOsm/kg (285-295); Sodium 134 mmol/L (136-145); Total Bilirubin 0.2 mg/dL (0.15-1.2); Total Protein 6.1 g/dL (6.6-8.7)
[2022-02-10] MEDS: metoprolol tartrate 25 mg Tablet 12.5 MG PO ×2 (08:14→21:20)
[2022-02-10] MEDS: pantoprazole DR 40 mg Tablet PO (08:14)
[2022-02-10] MEDS: levothyroxine 125 mcg Tablet PO (08:15)
[2022-02-10] MEDS: lisinopril 20 mg Tablet 40 MG PO (08:15)
[2022-02-10] MEDS: azithromycin 500 MG in sodium chloride 0.9% 250 ML 250 MG IV (08:15)
[2022-02-10] MEDS: aspirin 81 mg EC Tablet PO (08:15)
[2022-02-10] MEDS: FUROsemide 10 mg/mL SDV 4mL 40 MG IVP ×2 (08:15→18:26)
[2022-02-10] MEDS: potassium chloride ER 10 mEq Tablet PO (08:15)
[2022-02-10] MEDS: liothyronine 5 mcg Tablet PO (08:26)
[2022-02-10] MEDS: enoxaparin 80 mg/0.8 mL Syringe 70 MG SUBCUT ×2 (10:48→19:51)
[2022-02-10] MEDS: ALPRAZolam 0.5 mg Tablet 0.25 MG PO ×2 (11:20→21:20)
--- NOTE | 2022-02-10 13:03 | PM.PN ---
Subjective Subjective: Seen this morning. She states she feels a lot better in terms of her breathing. Her lower extremity edema also has resolved. However she is experiencing a lot of anxiety and takes buspirone at home. She is requesting that be restarted here. She also takes Xanax. She states that Ativan does not help and Xanax works better for her. Still on 2 L nasal cannula. Family present at bedside. All questions answered and echo results discussed. Vitals/I&O/Wt Last Vital Signs Temp 98.8 F 02/10/22 12:00 Pulse 115 H 02/10/22 12:00 Resp 16 02/10/22 12:00 BP 98/65 02/10/22 12:00 Pulse Ox 97 02/10/22 12:00 02/09/22 02/10/22 02/10/22 22:59 06:59 14:59 Intake Total 240 / 490 400 / 890 250 / 250 Balance 240 / 490 400 / 890 250 / 250 Weight last 48 hrs Weight 71.259 kg Weight 71.123 kg Weight 70.307 kg Physical Exam Narrative: General: Alert oriented x3, no acute distress, family present at bedside HEENT: Normocephalic, atraumatic, EOMI, breathing normally on 2 L nasal cannula Cardio: Regular rate rhythm, normal S1-S2, Respiratory: Very minimal bibasilar crackles appreciated, significantly improved compared to yesterday, no gross wheezes or rhonchi. GI: Abdomen soft, nontender, nondistended, bowel sounds + Behavior: Appropriate and cooperative Extremities: Trace edema bilateral lower extremities, edema improved compared to yesterday Daughter present at bedside Data : 02/10/22 04:10 02/10/22 04:10 Micro: Microbiology 02/08/22 20:42 Blood Culture - Preliminary Blood NEGATIVE TO DATE 02/08/22 20:20 Blood Culture - Preliminary Blood NEGATIVE TO DATE 02/09/22 13:34 Gram Stain - Final Sputum - Expectorated Sputum A&P Assessment and plan (1) Heart failure: Status: Acute (2) NSTEMI (non-ST elevated myocardial infarction): Status: Acute (3) Dyspnea: Status: Acute (4) Congestive heart failure: Status: Acute (5) Epigastric pain: Status: Acute (6) Chest pain: Status: Acute Qualifiers: Chest pain type: chest pain on breathing Qualified Code(s): R07.1 - Chest pain on breathing (7) Vitamin D insufficiency: Status: Acute (8) Diabetes: Status: Acute (9) Acquired hypothyroidism: Status: Acute (10) Hypertension: Status: Acute (11) Hyperlipidemia: Status: Acute (12) Mitral regurgitation: Status: Acute Plan #New onset acute congestive systolic heart failure #NSTEMI #Hypertension #Hyperlipidemia #History of left bundle branch block #New onset severe mitral regurgitation ? Troponins positive.? Continue therapeutic Lovenox, aspirin, statin, beta-coy ? Keep potassium above 4, magnesium above 2 ? Continue on telemetry ? Continue to aggressively diurese patient.? Lasix 40 IV twice daily ? Continue lisinopril 40 daily ? Metoprolol 12.5 twice daily ? Check lipid profile -Plan for angiogram after patient has diuresed well ? Cardiology following and on board. ? Echo shows severe mitral regurgitation, EF 30% with global hypokinesis. #COPD exacerbation ? Solu-Medrol 40 IV twice daily, azithromycin IV daily x5 days total - duoneb q6h prn ? Has not had formal PFTs done ? We will need pulmonology referral at discharge #GERD #Borderline diabetes mellitus #Hypothyroidism ? Continue levothyroxine -Low intensity insulin sliding scale ? Check A1c #Anxiety ? Continue buspirone 15 twice daily Xanax 0.25 twice daily as needed DVT prophylaxis: On therapeutic Lovenox Attestations Medical Necessity Statement*: Requires inpatient level care for management of acute congestive heart failure, NSTEMI, COPD exacerbation Anticipate her staying in the hospital longer than 72 hours at this point. 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
--- NOTE | 2022-02-10 14:20 | P.PN_ITS ---
Subjective Subjective: Cardiology coverage Patient is admitted to hospital with features of congestive heart failure. LV ejection fraction of 30% with possibly severe MR. Was on BiPAP. Currently seems to be doing much better. Denies any chest pain. No fever, chills or cough. Medications: Medication Review Details: Current Medications Acetaminophen (Acetaminophen 325 Mg Tablet) 650 mg PO Q6H PRN PRN Reason: Mild/Mod Pain Or Temp >/= 101 Albuterol/Ipratropium (Ipratropium-Albuterol 3 Ml Neb) 3 ml INHALATION Q6H.RESPIRATORY MADIE Last Admin: 02/10/22 14:19 Dose: 3 ml Documented by: Alprazolam (Alprazolam 0.5 Mg Tablet) 0.25 mg PO BID PRN PRN Reason: ANXIETY Last Admin: 02/10/22 11:20 Dose: 0.25 mg Documented by: Aspirin (Aspirin 81 Mg Ec Tablet) 81 mg PO DAILY MADIE Last Admin: 02/10/22 08:15 Dose: 81 mg Documented by: Atorvastatin Calcium (Atorvastatin 40 Mg Tablet) 40 mg PO BEDTIME MADIE Last Admin: 02/09/22 19:57 Dose: Not Given Documented by: Bisacodyl (Bisacodyl 5 Mg Tablet) 10 mg PO DAILY PRN; Protocol PRN Reason: Constipation (see protocol) Buspirone HCl (Buspirone 10 Mg Tablet) 15 mg PO BID MADIE Enoxaparin Sodium (Enoxaparin 80 Mg/0.8 Ml Syringe) 70 mg SUBCUT Q12H MADIE Last Admin: 02/10/22 10:48 Dose: 70 mg Documented by: Furosemide (Furosemide 10 Mg/Ml Sdv 4ml) 40 mg IVP Q12H MADIE Last Admin: 02/10/22 08:15 Dose: 40 mg Documented by: Azithromycin 500 mg/ Sodium (Chloride) 250 mls @ 250 mls/hr IV Q24H MADIE; Protocol Last Infusion: 02/10/22 09:56 Dose: Infused Documented by: Lanolin (Lanolin Oint 7 Gm) 1 applic TOPICAL PRN PRN PRN Reason: DRYNESS Levothyroxine Sodium (Levothyroxine 125 Mcg Tablet) 125 mcg PO DAILY MADIE Last Admin: 02/10/22 08:15 Dose: 125 mcg Documented by: Liothyronine Sodium (Liothyronine 5 Mcg Tablet) 5 mcg PO DAILY MADIE Last Admin: 02/10/22 08:26 Dose: 5 mcg Documented by: Lisinopril (Lisinopril 20 Mg Tablet) 40 mg PO DAILY [facility] Last Admin: 02/10/22 08:15 Dose: 40 mg Documented by: Methylprednisolone Sodium Succinate (Methylprednisolone Sod Succ 40 Mg/Ml Inj) 40 mg IVP Q12H [facility] Last Admin: 02/10/22 10:47 Dose: 40 mg Documented by: Metoprolol Tartrate (Metoprolol Tartrate 25 Mg Tablet) 12.5 mg PO BID@0900,2100 [facility] Last Admin: 02/10/22 08:14 Dose: 12.5 mg Documented by: Ondansetron HCl (Ondansetron 2 Mg/Ml Sdv 2 Ml) 4 mg IVP Q8H PRN PRN Reason: vomiting, or N/V if npo Pantoprazole Sodium (Pantoprazole Dr 40 Mg Tablet) 40 mg PO DAILY [facility] Last Admin: 02/10/22 08:14 Dose: 40 mg Documented by: Potassium Chloride (Potassium Chloride Er 10 Meq Tablet) 10 meq PO DAILY [facility] Last Admin: 02/10/22 08:15 Dose: 10 meq Documented by: Vitals/I&O/Wt Last Vital Signs Temp 98.8 F 02/10/22 12:00 Pulse 115 H 02/10/22 12:00 Resp 16 02/10/22 12:00 BP 98/65 02/10/22 12:00 Pulse Ox 97 02/10/22 12:00 02/09/22 02/10/22 02/10/22 22:59 06:59 14:59 Intake Total 240 / 490 400 / 890 370 / 370 Balance 240 / 490 400 / 890 370 / 370 Weight last 48 hrs Weight 157 lb 1.6 oz Weight 156 lb 12.8 oz Weight 155 lb Physical Exam Narrative: GENERAL: The patient is alert and oriented times three. Not in any acute distress. HEENT: No significant pallor, icterus or lymphadenopathy.Oral cavity: There are no mucous membrane lesions. NECK: Trachea appears to be central. No masses noted. No JVD or thyromegaly appreciated. RESPIRATORY: Chest is symmetrical. No intercostals muscle retraction or any accessory muscle activation. There is no chest wall tenderness. Breath sounds are heard bilaterally. No rales or rhonchi heard. No evidence of any consolidation. BREASTS: Deferred. HEART: The heart sounds are normal. No S3 or S4. Short systolic murmur in the left sternal border. No diastolic murmurs.. No pericardial rub ABDOMEN: No vessel pulsations or distention. No tenderness. No organomegaly appreciated. Bowel sounds are normally heard. : Deferred. RECTAL: Deferred. LYMPHATIC: No lymphadenopathy noted in the neck. EXTREMITIES: Trace edema with no cyanosis MUSCULOSKELETAL: No acute joint deformities or swelling SKIN: There are no significant rashes or ecchymosis NEUROPSYCHIATRIC: The patient is alert and oriented x3. Appears to be in a good mood. No tremors or rigidity noted. Data : 02/10/22 04:10 02/10/22 04:10 Other Labs: Laboratory Last Values WBC 9.3 10^3/uL (4.0-10.0) 02/10/22 04:10 RBC 4.33 10^6/uL (4.1-5.3) 02/10/22 04:10 Hgb 13.1 g/dL (11.5-15.3) 02/10/22 04:10 Hct 39.2 % (37.0-47.0) 02/10/22 04:10 MCV 90.5 fl (81-99) 02/10/22 04:10 MCH 30.3 pg (28.0-34.0) 02/10/22 04:10 MCHC 33.4 g/dL (30.0-36.0) 02/10/22 04:10 RDW 14.7 % (12.1-15.1) 02/10/22 04:10 Plt Count 267 10^3/cmm (130-400) 02/10/22 04:10 MPV 9.9 fL (7.4-10.4) 02/10/22 04:10 Neut % (Auto) 93.9 % 02/10/22 04:10 Lymph % (Auto) 4.3 % 02/10/22 04:10 [place] % (Auto) 1.3 % 02/10/22 04:10 Eos % (Auto) 0.0 % 02/10/22 04:10 Baso % (Auto) 0.1 % 02/10/22 04:10 Neut # (Auto) 8.69 10^3/uL (1.8-7.7) H 02/10/22 04:10 Lymph # (Auto) 0.4 10^3/uL (0.8-4.8) L 02/10/22 04:10 [place] # (Auto) 0.1 10^3/uL (0.2-0.9) L 02/10/22 04:10 Eos # (Auto) 0.0 10^3/uL (0.0-0.8) 02/10/22 04:10 Baso # (Auto) 0.0 10^3/uL (0.0-0.1) 02/10/22 04:10 Nucleated RBC % (auto) 0 % 02/10/22 04:10 Nucleated RBCs # 0.0 /100WBC 02/10/22 04:10 PT 15.00 SECONDS (12.1-14.9) H 02/09/22 05:31 INR 1.15 (0.8-1.2) 02/09/22 05:31 APTT 35.9 SECONDS (23.9-36.7) 02/09/22 05:31 D-Dimer 0.99 ug/mIFEU (0-0.59) H 02/08/22 19:35 Specimen Type Arterial 02/08/22 20:45 Sample Site Brachial, right 02/08/22 20:45 ABG pH 7.39 (7.35-7.45) 02/08/22 20:45 ABG pCO2 38.7 mmHg (35-45) 02/08/22 20:45 ABG pO2 241.0 mmHg (80.0-100.0) H 02/08/22 20:45 ABG HCO3 23.3 mmol/L (22-26) 02/08/22 20:45 ABG Base Excess -1.4 mmol/L (-2.0-2.0) 02/08/22 20:45 Malik Test N/a 02/08/22 20:45 Hematocrit 42.3 % (37-47) 02/08/22 20:45 O2 Delivery Device Bipap 02/08/22 20:45 FiO2 65.0 % 02/08/22 20:45 Plant Worker ID Hinja 02/08/22 20:45 Sodium 134 mmol/L (136-145) L 02/10/22 04:10 Potassium 4.0 mmol/L (3.5-5.1) 02/10/22 04:10 Chloride 97 mmol/L (98-107) L 02/10/22 04:10 Carbon Dioxide 26 mmol/L (22-29) 02/10/22 04:10 Anion Gap 15.0 (5-19) 02/10/22 04:10 BUN 16 mg/dL (8-23) 02/10/22 04:10 Creatinine 0.7 mg/dL (0.5-0.9) 02/10/22 04:10 GFR Calculation 84.0 mL/min (90-130) L 02/10/22 04:10 Glucose 159 mg/dL (65-115) H 02/10/22 04:10 Calculated Osmolality 283 mOsm/kg (285-295) L 02/10/22 04:10 Calcium 9.0 mg/dL (8.5-10.5) 02/10/22 04:10 Magnesium 2.2 mg/dL (1.7-2.3) 02/10/22 04:10 Total Bilirubin 0.2 mg/dL (0.15-1.2) 02/10/22 04:10 AST 23 U/L (0-32) 02/10/22 04:10 ALT 32 U/L (0-33) 02/10/22 04:10 Alkaline Phosphatase 73 IU/L (35-105) 02/10/22 04:10 Troponin T Baseline 78 ng/L (0-10) H 02/08/22 19:35 Troponin T 120 Minute 264.4 ng/L (0-10) H 02/08/22 23:34 Delta Troponin T 186.4 ABS# (0-10) H* 02/08/22 23:34 Troponin T Hi Sens 6Hr 386.4 ng/L (0-10) H 02/09/22 02:04 Troponin T Hi Sens 6Hr Delta 308.4 ng/L (0-12) H* 02/09/22 02:04 NT-Pro-B Natriuret Pep 7449 pg/mL (0-125) H 02/08/22 19:35 Total Protein 6.1 g/dL (6.6-8.7) L 02/10/22 04:10 Albumin 3.9 g/dL (3.5-5.2) 02/10/22 04:10 Globulin 2.2 g/dL (1.3-4.6) 02/10/22 04:10 TSH 1.44 uIU/mL (0.27-4.20) 02/09/22 02:04 Micro: Microbiology 02/09/22 13:34 Gram Stain - Final Sputum - Expectorated Sputum Sputum Culture - Preliminary 02/08/22 20:42 Blood Culture - Preliminary Blood NEGATIVE TO DATE 02/08/22 20:20 Blood Culture - Preliminary Blood NEGATIVE TO DATE A&P Assessment and plan (1) Elevated troponin: Patient had a significant 2-hour delta on the troponin levels. Most likely this may suggest a type I myocardial infarction. EKG has chronic left bundle branch block pattern. She may be kept on the therapeutic dose of Lovenox. Consider cardiac catheterization as early as possible Status: Acute (2) Mitral regurgitation: Patient has possibly severe mitral regurgitation by echocardiogram. She may require mitral valve repair/replacement. We will consider doing a right and le ft heart catheterization and then make a final decision. Status: Acute (3) Congestive heart failure: Continue on the IV diuretics. I also may start her spironolactone 25 mg p.o. daily Status: Acute (4) Cardiomyopathy: Consider Entresto later on. Status: Acute (5) Diabetes: Aggressive management of the diabetes would be appropriate Status: Acute (6) Hypertension: Currently normotensive. Continue on the current medications. Status: Acute (7) Hyperlipidemia: Patient is on atorvastatin which may be continued. Status: Acute Plan Patient with a clinical progress on the results of the above, further management decisions will be made. BMP in the morning Attestations Medical Necessity Statement*: Patient requires continued hospital stay for close monitoring and further management Coding Level of Care Code Acute Cellulose Insulation Helper for Chg Fwd History Expanded Problem Focused Exam Detailed Medical Decision Making Moderate Complexity Diagnoses Mitral regurgitation I34.0 Congestive heart failure I50.9 Cardiomyopathy I42.9 Diabetes E11.9 Hypertension I10 Hyperlipidemia E78.5 Elevated troponin R77.8
[2022-02-10] MEDS: BuSPIRONE 10 mg Tablet 15 MG PO (17:38)
--- NOTE | 2022-02-10 19:11 | PC.NURSE ---
bedside report given to EUFEMIA Malhotra
[2022-02-11] VITALS (10 sets, daily range): BP systolic 100–123; BP diastolic 64–86; PULSE 94–132; RESP 16–21; TEMP 36.4–36.8; O2SAT 95–99
[2022-02-11] MEDS: ipratropium-albuterol 3 mL Neb INHALATION ×4 (02:49→20:02)
[2022-02-11 06:09] LABS: Basophils % 0.1 %; Hematocrit 39.4 % (37.0-47.0); Hemoglobin 12.6 g/dL (11.5-15.3); Lymphocytes # 0.4 10^3/uL (0.8-4.8); Lymphocytes % 4.7 %; Mean Corpuscular Hemoglobin 30.2 pg (28.0-34.0); Mean Corpuscular Volume 94.5 fl (81-99); Mean Platelet Volume 10.3 fL (7.4-10.4); Monocytes # 0.2 10^3/uL (0.2-0.9); Monocytes % 2.5 %; Neutrophils # 7.04 10^3/uL (1.8-7.7); Nucleated Red Blood Cells % 0 %; Platelet Count 248 10^3/cmm (130-400); Red Blood Count 4.17 10^6/uL (4.1-5.3); Red Cell Distribution Width 14.9 % (12.1-15.1); White Blood Count 7.7 10^3/uL (4.0-10.0)
[2022-02-11] MEDS: azithromycin 500 MG in sodium chloride 0.9% 250 ML 250 MG IV (06:28)
[2022-02-11] MEDS: FUROsemide 10 mg/mL SDV 4mL 40 MG IVP ×2 (06:28→18:01)
[2022-02-11 06:34] LABS: Alanine Aminotransferase 30 U/L (0-33); Albumin Level 3.8 g/dL (3.5-5.2); Alkaline Phosphatase 65 IU/L (35-105); Anion Gap 13.4 (5-19); Aspartate Amino Transferase 17 U/L (0-32); Blood Urea Nitrogen 18 mg/dL (8-23); Calcium 9.1 mg/dL (8.5-10.5); Carbon Dioxide 30 mmol/L (22-29); Chloride 101 mmol/L (98-107); Glomerular Filtration Rate 100.3 mL/min (90-130); Glucose 158 mg/dL (65-115); Magnesium 2.3 mg/dL (1.7-2.3); Osmolality Calculated 295 mOsm/kg (285-295); Potassium 4.4 mmol/L (3.5-5.1); Sodium 140 mmol/L (136-145); Total Bilirubin 0.2 mg/dL (0.15-1.2); Total Protein 5.8 g/dL (6.6-8.7)
[2022-02-11] MEDS: aspirin 81 mg EC Tablet PO (09:29)
[2022-02-11] MEDS: potassium chloride ER 10 mEq Tablet PO (09:29)
[2022-02-11] MEDS: BuSPIRONE 10 mg Tablet 15 MG PO ×2 (09:29→17:56)
[2022-02-11] MEDS: pantoprazole DR 40 mg Tablet PO (09:29)
[2022-02-11] MEDS: enoxaparin 80 mg/0.8 mL Syringe 70 MG SUBCUT ×2 (09:30→20:49)
[2022-02-11] MEDS: levothyroxine 125 mcg Tablet PO (09:30)
[2022-02-11] MEDS: ALPRAZolam 0.5 mg Tablet 0.25 MG PO ×2 (09:33→20:49)
[2022-02-11] MEDS: metoprolol tartrate 25 mg Tablet 12.5 MG PO ×2 (09:33→19:57)
[2022-02-11] MEDS: liothyronine 5 mcg Tablet PO (09:33)
--- NOTE | 2022-02-11 10:06 | PC.SOCIAL ---
IMM update IMM updated with patient and family at bedside. Copy Pg 2 provided. Verbalized an understanding. Initialled, dated, timed, and placed in chart.
--- NOTE | 2022-02-11 15:04 | PM.PN ---
Subjective Subjective: on room air, off O2 Doing better still has some sob family at bedside complains of eccymosis at lovenox administration site on abdomen Vitals/I&O/Wt Last Vital Signs Temp 98.0 F 02/11/22 12:00 Pulse 94 02/11/22 12:00 Resp 16 02/11/22 12:00 BP 100/64 02/11/22 12:00 Pulse Ox 95 02/11/22 12:00 02/11/22 02/11/22 02/11/22 06:59 14:59 22:59 Intake Total 250 / 250 Balance 250 / 250 Weight last 48 hrs Weight 71.259 kg Physical Exam Narrative: General: Alert oriented x3, no acute distress, family present at bedside HEENT: Normocephalic, atraumatic, EOMI, breathing normally on 2 L nasal cannula Cardio: Regular rate rhythm, normal S1-S2, Respiratory: Bibasilar crackles appreciated, no gross wheezes or rhonchi. GI: Abdomen soft, nontender, nondistended, bowel sounds + Behavior: Appropriate and cooperative Extremities: NO edema bilateral lower extremities, edema improved compared to yesterday Daughter present at bedside Data : 02/11/22 05:18 02/11/22 05:18 Micro: Microbiology 02/09/22 13:34 Gram Stain - Final Sputum - Expectorated Sputum Sputum Culture - Final A&P Assessment and plan (1) Elevated troponin: Status: Acute (2) Cardiomyopathy: Status: Acute (3) Mitral regurgitation: Status: Acute (4) Heart failure: Status: Acute (5) NSTEMI (non-ST elevated myocardial infarction): Status: Acute (6) Dyspnea: Status: Acute (7) Congestive heart failure: Status: Acute (8) Hypertension: Status: Acute (9) Hyperlipidemia: Status: Acute (10) Diabetes: Status: Acute (11) LBBB (left bundle branch block): Status: Acute Plan #New onset acute congestive systolic heart failure #NSTEMI #Hypertension #Hyperlipidemia #History of left bundle branch block #New onset severe mitral regurgitation ? Troponins positive.? Continue therapeutic Lovenox, aspirin, statin, beta-coy ? Keep potassium above 4, magnesium above 2 ? Continue on telemetry ? Continue to aggressively diurese patient.? Lasix 40 IV twice daily ? Continue lisinopril 40 daily ? Metoprolol 12.5 twice daily ? Check lipid profile -Plan for angiogram after patient has diuresed well ? Cardiology following and on board. ? Echo shows severe mitral regurgitation, EF 30% with global hypokinesis. - NPO AT MIDNIGHT FOR ANGIO IN AM #COPD exacerbation ? Solu-Medrol 40 IV twice daily, azithromycin IV daily x5 days total - duoneb q6h prn ? Has not had formal PFTs done ? We will need pulmonology referral at discharge #GERD #Borderline diabetes mellitus #Hypothyroidism ? Continue levothyroxine -Low intensity insulin sliding scale ? Check A1c #Anxiety ? Continue buspirone 15 twice daily Xanax 0.25 twice daily as needed DVT prophylaxis: On therapeutic Lovenox Attestations Medical Necessity Statement*: Requires inpatient level care for management of acute congestive heart failure, NSTEMI, COPD exacerbation Anticipate her staying in the hospital longer than 72 hours at this point. Coding Level of Care Code Acute Steward/Stewardess Economy Class for Kat Butterfield Diagnoses Elevated troponin R77.8 Cardiomyopathy I42.9 Mitral regurgitation I34.0 Heart failure I50.9 NSTEMI (non-ST elevated myocardial infarction) I21.4 Dyspnea R06.00 Congestive heart failure I50.9 Hypertension I10 Hyperlipidemia E78.5 Diabetes E11.9 LBBB (left bundle branch block) I44.7
--- NOTE | 2022-02-11 19:24 | PM.PN ---
Subjective Subjective: Patient is feeling much better. Denies any chest pain or chest tightness. Shortness of breath is markedly improved. Remains afebrile. Medications: Medication Review Details: Current Medications Acetaminophen (Acetaminophen 325 Mg Tablet) 650 mg PO Q6H PRN PRN Reason: Mild/Mod Pain Or Temp >/= 101 Albuterol/Ipratropium (Ipratropium-Albuterol 3 Ml Neb) 3 ml INHALATION Q6H.RESPIRATORY MADIE Last Admin: 02/11/22 14:45 Dose: 3 ml Documented by: Alprazolam (Alprazolam 0.5 Mg Tablet) 0.25 mg PO BID PRN PRN Reason: ANXIETY Last Admin: 02/11/22 09:33 Dose: 0.25 mg Documented by: Aspirin (Aspirin 81 Mg Ec Tablet) 81 mg PO DAILY MADIE Last Admin: 02/11/22 09:29 Dose: 81 mg Documented by: Atorvastatin Calcium (Atorvastatin 40 Mg Tablet) 40 mg PO BEDTIME MADIE Last Admin: 02/10/22 19:52 Dose: Not Given Documented by: Bisacodyl (Bisacodyl 5 Mg Tablet) 10 mg PO DAILY PRN; Protocol PRN Reason: Constipation (see protocol) Buspirone HCl (Buspirone 10 Mg Tablet) 15 mg PO BID MADIE Last Admin: 02/11/22 17:56 Dose: 15 mg Documented by: Enoxaparin Sodium (Enoxaparin 80 Mg/0.8 Ml Syringe) 70 mg SUBCUT Q12H MADIE Last Admin: 02/11/22 09:30 Dose: 70 mg Documented by: Furosemide (Furosemide 10 Mg/Ml Sdv 4ml) 40 mg IVP Q12H MADIE Last Admin: 02/11/22 18:01 Dose: 40 mg Documented by: Azithromycin 500 mg/ Sodium (Chloride) 250 mls @ 250 mls/hr IV Q24H MADIE; Protocol Last Infusion: 02/11/22 09:37 Dose: Infused Documented by: Lanolin (Lanolin Oint 7 Gm) 1 applic TOPICAL PRN PRN PRN Reason: DRYNESS Levothyroxine Sodium (Levothyroxine 125 Mcg Tablet) 125 mcg PO DAILY MADIE Last Admin: 02/11/22 09:30 Dose: 125 mcg Documented by: Liothyronine Sodium (Liothyronine 5 Mcg Tablet) 5 mcg PO DAILY MADIE Last Admin: 02/11/22 09:33 Dose: 5 mcg Documented by: Lisinopril (Lisinopril 20 Mg Tablet) 40 mg PO DAILY [facility] Last Admin: 02/11/22 09:31 Dose: Not Given Documented by: Methylprednisolone Sodium Succinate (Methylprednisolone Sod Succ 40 Mg/Ml Inj) 40 mg IVP Q12H [facility] Last Admin: 02/11/22 12:02 Dose: 40 mg Documented by: Metoprolol Tartrate (Metoprolol Tartrate 25 Mg Tablet) 12.5 mg PO BID@0900,2100 [facility] Last Admin: 02/11/22 09:33 Dose: 12.5 mg Documented by: Ondansetron HCl (Ondansetron 2 Mg/Ml Sdv 2 Ml) 4 mg IVP Q8H PRN PRN Reason: vomiting, or N/V if npo Pantoprazole Sodium (Pantoprazole Dr 40 Mg Tablet) 40 mg PO DAILY [facility] Last Admin: 02/11/22 09:29 Dose: 40 mg Documented by: Potassium Chloride (Potassium Chloride Er 10 Meq Tablet) 10 meq PO DAILY [facility] Last Admin: 02/11/22 09:29 Dose: 10 meq Documented by: Vitals/I&O/Wt Last Vital Signs Temp 98.3 F 02/11/22 16:00 Pulse 112 H 02/11/22 16:00 Resp 16 02/11/22 16:00 BP 100/64 02/11/22 16:00 Pulse Ox 96 02/11/22 16:00 02/11/22 02/11/22 02/11/22 06:59 14:59 22:59 Intake Total 250 / 250 Balance 250 / 250 Weight last 48 hrs Weight 157 lb 1.6 oz Physical Exam Narrative: GENERAL: The patient is alert and oriented times three. Not in any acute distress. HEENT: No significant pallor, icterus or lymphadenopathy.Oral cavity: There are no mucous membrane lesions. NECK: Trachea appears to be central. No masses noted. No JVD or thyromegaly appreciated. RESPIRATORY: Chest is symmetrical. No intercostals muscle retraction or any accessory muscle activation. There is no chest wall tenderness. Breath sounds are heard bilaterally. No rales or rhonchi heard. No evidence of any consolidation. BREASTS: Deferred. HEART: The heart sounds are normal. No S3 or S4. Systolic murmur grade 4/6 in the mitral area. ABDOMEN: No vessel pulsations or distention. No tenderness. No organomegaly appreciated. Bowel sounds are normally heard. : Deferred. RECTAL: Deferred. LYMPHATIC: No lymphadenopathy noted in the neck. EXTREMITIES: Trace edema with no cyanosis MUSCULOSKELETAL: No acute joint deformities or swelling SKIN: There are no significant rashes or ecchymosis NEUROPSYCHIATRIC: The patient is alert and oriented x3. Appears to be in a good mood. No tremors or rigidity noted. Data : 02/11/22 05:18 02/11/22 05:18 Micro: Microbiology 02/09/22 13:34 Gram Stain - Final Sputum - Expectorated Sputum Sputum Culture - Final A&P Assessment and plan (1) Elevated troponin: Patient had a significant 2-hour delta on the troponin levels. Most likely this may suggest a type I myocardial infarction. EKG has chronic left bundle branch block pattern. She may be kept on the therapeutic dose of Lovenox. Consider cardiac catheterization as early as possible Status: Acute (2) Mitral regurgitation: Patient has possibly severe mitral regurgitation by echocardiogram. She may require mitral valve repair/replacement. We will consider doing a right and left heart catheterization and then make a final decision. Status: Acute (3) Congestive heart failure: Continue on the IV diuretics. I also may start her spironolactone 25 mg p.o. daily Status: Acute (4) Cardiomyopathy: Consider Entresto later on. Her blood pressure is soft at this time. I may start her on losartan 50 mg daily from tomorrow onwards Status: Acute (5) Diabetes: Aggressive management of the diabetes would be appropriate Status: Acute (6) Hypertension: Currently normotensive. Continue on the current medications. Status: Acute (7) Hyperlipidemia: Patient is on atorvastatin which may be continued. Status: Acute Plan Patient with a clinical progress on the results of the above, further management decisions will be made. BMP in the morning. We will keep her n.p.o. after midnight. Possible cardiac catheterization tomorrow Attestations Medical Necessity Statement*: Patient requires continued hospital stay for close monitoring and further management Coding Level of Care Code Acute Shoe Lay Out Planner for Chg Fwd History Expanded Problem Focused Exam Detailed Medical Decision Making Moderate Complexity Diagnoses Elevated troponin R77.8 Mitral regurgitation I34.0 Congestive heart failure I50.9 Cardiomyopathy I42.9 Diabetes E11.9 Hypertension I10 Hyperlipidemia E78.5
--- NOTE | 2022-02-11 21:19 | PC.NURSE ---
Pulse is high due to anxiety, stated by patient.
[2022-02-11] MEDS: ALPRAZolam 0.5 mg Tablet PO (23:21)
[2022-02-12] VITALS (28 sets, daily range): BP systolic 103–136; BP diastolic 62–87; PULSE 22–122; RESP 13–106; TEMP 36.5–37; O2SAT 90–96
[2022-02-12] MEDS: ipratropium-albuterol 3 mL Neb INHALATION ×3 (02:46→21:13)
[2022-02-12 03:42] LABS: Anion Gap 12.2 (5-19); Blood Urea Nitrogen 20 mg/dL (8-23); Calcium 9.4 mg/dL (8.5-10.5); Carbon Dioxide 33 mmol/L (22-29); Chloride 99 mmol/L (98-107); Glucose 128 mg/dL (65-115); Magnesium 2.4 mg/dL (1.7-2.3); Osmolality Calculated 294 mOsm/kg (285-295); Potassium 4.2 mmol/L (3.5-5.1); Sodium 140 mmol/L (136-145)
[2022-02-12] MEDS: azithromycin 500 MG in sodium chloride 0.9% 250 ML 250 MG IV (06:24)
[2022-02-12] MEDS: FUROsemide 10 mg/mL SDV 4mL 40 MG IVP (06:24)
[2022-02-12] MEDS: sodium chloride 0.9% 1,000 ML 50 ML IV (06:25)
--- NOTE | 2022-02-12 06:29 | XACV_ITS ---
Exam Room: 2 Ht: 168 cm Wt: 71 kg BSA: 1.83 m2 Gender: Female : 1955 Any Known Allergies: Other Exam Priority: Routine Procedure(s): Procedure Description: Diagnostic procedure Procedure Description: Left Heart Catheterization Procedure Description: Right Heart Catheterization Procedure Description: O2 saturation Procedure Description: Coronary Angiography Diagnostic Cath Status: Elective Diagnostic Findings * Left main artery has significant * , severe * distal * 80% hazy looking stenosis. It is a calcified vessel LAD: Mid vessel has severe, calcified 70 stenosis Left circumflex artery: Patent RCA: Chronic to in the proximal segment. Distal RCA receives collaterals from LAD territory.. * Indicate indication: 66-year-old woman with past medical history of hypertension and hypothyroidism who presented to the hospital with 3 weeks of worsening shortness of breath. She was found to have Severe LV dysfunction with a EF of 30%. Her troponins trended up significantly. After diuresis today plan is for right and left heart cath. Echocardiogram also demonstrated severe eccentric mitral regurgitation.. * Right heart cath findings: RA pressure: 20/17/17 PCW: 48/35/39 PA pressure: 69/37/50 RV: 69/9/21 PA sat: 70% Aortic sat 91% TP mmHg Cardiac output: 6.4 L/min Cardiac index 3.5 L/min/m2 PVR 1.71 Wood units . * Coronary angiography shows right dominance. Conclusions 1. Left main artery has significant 2. , severe 3. distal 4. 80% hazy looking stenosis. It is a calcified vessel LAD: Mid vessel has severe, calcified 70 stenosis Left circumflex artery: Patent RCA: Chronic to in the proximal segment. Distal RCA receives collaterals from LAD territory.. 5. Severe multivessel coronary artery disease including distal left main, mid LAD and chronic total occlusion of RCA. 6. Severely elevated right and left-sided cardiac pressures. 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 We will recommend CT surgery evaluation for CABG and mitral valve replacement. We do not have CT surgery backup available currently in the hospital and patient will need to be transferred. * Continue IV diuresis. * Continue aspirin. No Plavix. * Continue anticoagulation. Interventional RX Recommendation: CABG Diagnostic RX Recommendation: CABG Pressures Phase:Rest AO : 98 / 72 ( 84 ) @ 12:07:00 PM 110 / 35 ( 67 ) @ 12:11:00 PM LV : 117 / 9 / 22 @ 12:10:00 PM RV : 64 / 9 / 21 @ 11:58:00 AM PA : 69 / 37 ( 50 ) @ 11:57:00 AM RA : a wave = 20 v wave = 17 mean = 17 @ 11:58:00 AM PCW : a wave = 48 v wave = 35 mean = 39 @ 11:56:00 AM O2 Content Phase:Rest PA : O2 Content O2: 69.8 @ 12:11:00 PM Saturations Phase:Rest AO : 91 @ 12:07:00 PM PA : 70 @ 12:11:00 PM Cardiac Output Phase:Rest Rj : 5 @ 11:19:06 AM Rj Cardiac Index: 3 @ 11:19:06 AM Flow Phase:Rest Qp : 5 @ 11:19:06 AM Qs : 5 @ 11:19:06 AM Clinical Evaluation EBL: 5mL-10mL Procedural Details Procedure Consent Obtained. Pre-Procedure Time Out. Identified patient by full name and date of as verbalized by the patient/guarantor. Does the consent match the physician's order: Yes. Accurate & Complete Informed Consent: Yes. Inpatient/Outpatient History & Physical on Chart: Yes. If H&P is completed, is and addenduem needed: No. Visualize and Verify Site with Patient/Guarantor: N/A. Relevant Radiology Images available: Yes. The risks, benefits, and alternatives of sedation and/or procedure were discussed by physician. The patient agrees to continue. Procedure started. [facility] Clinical Fraility Score: 3: Managing Well. Agriscience Instructor Indications: Worsening Angina. Chest Pain Symptom Assessment: Typical Angina Symptoms. Cardiovascular Instability: No. Correct patient, site and procedure confirmed by cath team. PERRLA. Strong, equal hand [place] leverman bilaterally. Lungs clear x 5 lobes. IV Site on Arrival: 18 gauge in the right anticubital for RHC. IV Site on Arrival: 20 gauge in the right anticubital. IV Fluids: 0.9% NaCl at KVO. 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 Pre Procedural Pulses: bilateral dorsalis pedis was 2+. Pre Procedural Pulses: bilateral posterior tibial was 2+. Pre Procedural Pulses: bilateral radial was 3+. Patient currently on Room Air. right groin was prepped with chloroprep then draped in the usual sterile fashion. right radial was prepped with chloroprep then draped in the usual sterile fashion. Physician notified. Baseline sample Acquired. HR: 107 BPM. Physician arrived. Patient's family in the radiology waiting room. Dr. Torres will update at the conclusion of the procedure. Equipment: 6F - Radial. Cardiac Cath Pack. ACIST Manifold Kit Model BT 2000. Heparinized Saline (2 units/mL), 1000 mL bag. Physician scrubbed in. Immediate Pre-Procedure Time Out. Correct Patient: Yes; Correct Procedure: Yes; Correct Site: Yes; Correct Patient Position: Yes; Correct Supplies: Yes; Dried Flammable Prep: Yes; Blood Products Available: N/A. Wire in through the existing 18 guage venous access in the right brachial. 18 guage venous catheter out. Lidocaine 1% infiltrated to the right brachial. Byron-Reece MON catheter inserted. Oximetry samples were obtained. Normal venous range: 60-85%. Normal arterial range: 95-100%. Pressure measurements obtained. Byron-Reece out. Lidocaine 1% infiltrated to the right radial. Arterial access obtained. A 5 english TIG catheter in over wire. Oxygen started at 2liters/min via nasal canula. Multiple views taken of left coronary artery. Catheter redirected to the RCA. Cine of the RCA performed. Catheter redirected to the LV. EDP Sample taken: LV 117/9,22; HR: 98 BPM; SpO2: 93%. Pullback taken: LV Off; AO Off; Mean: , Peak to Peak: , SEP: ; HR: 97 BPM; SpO2: 95%. Catheter removed over the standard wire. Dr. Torres scrubbed out. A Manual Compression was successful obtaining hemostatsis at the Right Brachial Vein insertion site. A TR Band was successful obtaining hemostatsis at the Right Radial artery insertion site. TR band placed. Hemostasis obtained. Right Brachial Sheath removed and manual pressure held until hemostasis was achieved. Sterile 4x4 and Op-site applied to the puncture site. No oozing or hematoma noted. Post sheath removal instructions were given and the patient verbalized understanding. Post Procedure: Pulses reassessed and unchanged. PERRLA. Strong, equal hand [place] leverman bilaterally. No VTE prophylaxis required. Medication's Wasted: Lidocaine 1% = 5 mL. Medication's Wasted: Nitro = 49.8 mg. Medication's Wasted: Heparin = 1000 Units. Total IV fluids: 48 mL. Post-op diagnosis: Multi vesssel CAD, severely elevated right and left sided heart pressures. Complications: none. Estimated blood loss: 5mL-10mL. Responsiveness - Normal response to verbal stimuli; alert and oriented, PERRLA. Airway - Unaffected, no intervention required; spontaneous ventilation. Circulation: W/N/L, pulses unchanged. Nausea/Vomiting: No. Procedure completed. Patient transferred by wheelchair to 1st floor. Vital chart was stopped. Access Site Site: Right Brachial Vein Sheath Size: 6 Fr Hemostasis Method: Manual Compression Hemostasis Success: Successful Site: Right Radial artery Sheath Size: 6 Fr Hemostasis Method: TR Band Hemostasis Success: Successful Procedure Medications Start: 10:39 AM Stop: 10:39 AM Medication: Versed Amount: 1 mg Route: I.V. Start: 11:03 AM Stop: 11:03 AM Medication: Versed Amount: 1 mg Route: I.V. Start: 11:07 AM Stop: 11:07 AM Medication: Fentanyl Amount: 25 mcg Route: I.V. Start: 11:02 AM Stop: 11:02 AM Medication: Nitrogylcerin Amount: 200 mcg Route: I.A. I, the attending physician, have reviewed and verified all procedure medications. Yes, all medications given per verbal order History/Risk Factors Hypertension: Yes Dyslipidemia: Yes Peripheral Arterial Disease (PAD): No Myocardial Infarction (IN): No Obesity: No Renal Disease: No Tobacco Use: Current/Recent(w/in 1 year) Prior Interventions PCI: No CABG: No Valve Surgery: No Report Signatures Finalized by Messi Torres MD on 02/12/2022 12:54 PM
[2022-02-12] MEDS: enoxaparin 80 mg/0.8 mL Syringe 70 MG SUBCUT ×2 (09:10→20:15)
[2022-02-12] MEDS: losartan 50 mg Tablet PO (09:10)
[2022-02-12] MEDS: ALPRAZolam 0.5 mg Tablet 0.25 MG PO ×2 (09:10→20:17)
[2022-02-12] MEDS: liothyronine 5 mcg Tablet PO (09:10)
[2022-02-12] MEDS: aspirin 81 mg EC Tablet PO (09:10)
[2022-02-12] MEDS: pantoprazole DR 40 mg Tablet PO (09:11)
[2022-02-12] MEDS: BuSPIRONE 10 mg Tablet 15 MG PO ×2 (09:11→17:23)
[2022-02-12] MEDS: diphenhydrAMINE 50 mg Capsule PO (09:11)
[2022-02-12] MEDS: levothyroxine 125 mcg Tablet PO (09:11)
[2022-02-12] MEDS: potassium chloride ER 10 mEq Tablet PO (09:14)
[2022-02-12] MEDS: metoprolol tartrate 25 mg Tablet 12.5 MG PO (09:16)
--- NOTE | 2022-02-12 10:41 | W.PM.OPSUD ---
Surgery/Procedure H&P Update DATE OF PROCEDURE: February 12, 2022 DATE H&P PERFORMED: 02/09/22 H&P UPDATE INFORMATION: I have reviewed H&P completed within last 30 days, I have examined patient prior to procedure and No changes to prior documentation PREOP DIAGNOSIS: NSTEMI/ Severe mitral regurgitation/ Congestive heart failure PRIMARY INDICATION FOR PROCEDURE: NSTEMI/ Severe mitral regurgitation/ Congestive heart failure PLANNED PROCEDURE: Operation Date: 02/12/22 10:00 Proposed Procedures p Cardiac Catheterization(Bilateral) - Messi Torres M.D Possible percutaneous coronary intervention PATIENT REASSESSED PRIOR TO SEDATION, WITH NO CHANGE NOTED: Yes PHYSICAL EXAM: alert, oriented x 3, clear to auscultation bilaterally and regular rate & rhythm AIRWAY EVAL/ANESTHESIA PLAN: ASA III, Local Anesthesia, Risks, benefits & alternatives of sedation and/or procedure discussed and Patient agrees to continue as planned ADDITIONAL INFORMATION: Moderate sedation
[2022-02-12 11:08] LABS: ABG PCO2 45.3 mmHg (35-45); ABG PH Result 7.48 (7.35-7.45); Arterial Blood Gas Hematocrit 42.3 % (37-47); Base Excess ABG 8.9 mmol/L (-2.0-2.0); Blood Gas Operator Identificat ED; Blood Gas Sample Site Not specified; Blood Gas Sample Type Arterial; HCO3 ABG 33.7 mmol/L (22-26); Oxygen Device ROOM AIR; PO2 ABG 56.4 mmHg (80.0-100.0)
[2022-02-12 11:11] LABS: ABG PH Result 7.46 (7.35-7.45); Arterial Blood Gas Hematocrit 42.5 % (37-47); Base Excess ABG 9.2 mmol/L (-2.0-2.0); Blood Gas Operator Identificat ED; Blood Gas Sample Site Not specified; Blood Gas Sample Type Arterial; HCO3 ABG 34.6 mmol/L (22-26); Oxygen Device ROOM AIR
--- NOTE | 2022-02-12 13:24 | PM.PN ---
Subjective Subjective: Hospital course, labs appreciated. Patient seen post cardiac catheterization in recovery. Seen with family at bedside. Patient and family was aware of diagnosis of left main and triple-vessel disease. They are aware that possibly patient would need to transfer to a different center for CABG and mitral valve repair. They are requesting patient to be transferred possibly to a hospital in [place] at the [facility] or [facility]. We discussed that currently they have no beds available as per the conversation today morning. Family and patient would well like to try again tomorrow morning and if no beds are available at that point would like to try at [facility] [place] after that. Currently patient denies any nausea, vomiting, headache. Saturating well on room air. Vitals/I&O/Wt Last Vital Signs Temp 97.9 F 02/12/22 12:00 Pulse 107 H 02/12/22 13:15 Resp 18 02/12/22 13:15 BP 111/80 02/12/22 12:45 Pulse Ox 94 02/12/22 13:15 02/11/22 02/12/22 02/12/22 22:59 06:59 14:59 Intake Total 610 / 610 Balance 610 / 610 Physical Exam Narrative: General: Alert oriented x3, no acute distress, family present at bedside HEENT: Normocephalic, atraumatic, EOMI, breathing normally on 2 L nasal cannula Cardio: Regular rate rhythm, normal S1-S2, pansystolic murmur at apex radiating to mid axillary line. Respiratory: Bibasilar crackles appreciated, no gross wheezes or rhonchi. GI: Abdomen soft, nontender, nondistended, bowel sounds + Behavior: Appropriate and cooperative Extremities: NO edema bilateral lower extremities, edema improved compared to yesterday Daughter present at bedside Data : 02/11/22 05:18 02/12/22 02:28 Micro: Microbiology 02/09/22 13:34 Gram Stain - Final Sputum - Expectorated Sputum Sputum Culture - Final A&P Assessment and plan (1) Dyspnea: Secondary to congestive heart failure. Compensated currently. Saturating well on room air. Less likely COPD exacerbation. Wean off Solu-Medrol. 40 mg IV daily for now. DuoNeb every 6 hours. Keep saturation over 88%. Status: Acute Qualifiers: Dyspnea type: orthopnea Qualified Code(s): R06.01 - Orthopnea (2) Congestive heart failure: Echocardiogram done shows an EF of 30%, dilated LV cavity, severe eccentric MR, dilated IVC with RA pressure of 15 mmHg. Currently well compensated. IV Lasix 40 mg daily. Increase metoprolol 25 mg twice daily. Losartan 50 mg daily. Strict input output charting, daily weights. Status: Acute Qualifiers: Heart failure type: combined systolic and diastolic Heart failure chronicity: acute Qualified Code(s): I50.41 - Acute combined systolic (congestive) and diastolic (congestive) heart failure (3) NSTEMI (non-ST elevated myocardial infarction): Post cardiac angiogram. Found to have severe triple-vessel disease and left main disease. Need for CABG plus MVR. Currently chest pain-free. Continue with aspirin, statin, metoprolol as beta-coy. We will hold off on Plavix for now given possible need of CABG. Lovenox 1 mg/kg body weight every 12 hourly for now. Status: Acute (4) Cardiomyopathy: Status: Acute Qualifiers: Cardiomyopathy type: ischemic Qualified Code(s): I25.5 - Ischemic cardiomyopathy (5) Mitral regurgitation: Status: Acute Qualifiers: Cardiac valve disease etiology: nonrheumatic Qualified Code(s): I34.0 - Nonrheumatic mitral (valve) insufficiency (6) Hypertension: Goal blood pressure less than 140/90 mmHg. Status: Acute (7) Hyperlipidemia: Status: Acute (8) Diabetes: Status: Acute (9) LBBB (left bundle branch block): Status: Acute Plan Check lipid panel, A1c. Analgesia: Tylenol every 6 hourly as needed. Glycemic control: Not needed. Check A1c. Nutrition: Cardiac diet. CODE STATUS: Limited resuscitation. PUD prophylaxis: Protonix DVT prophylaxis: Full dose Lovenox will suffice for DVT prophylaxis Discharge planning: Plan to transfer to [facility] for CABG plus MVR. No beds available at [facility] and [facility] [place]. Family wants to wait for 24 more hours and retry tomorrow morning. If no beds available at that point then there agreeable to first look at [facility] in [place] and if no bed needed then to various hospitals at [place]. Continue care at [facility] with telemetry. Attestations Medical Necessity Statement*: Requires further hospitalization for management of congestive heart failure, non-ST elevation KS in setting of severe triple-vessel disease needing CABG and MVR Time Spent in Patient Care: Greater than 35 minutes Coding Level of Care Code Acute Tubing Assembler for [facility] Fwd Diagnoses Cardiomyopathy I25.5 Cardiomyopathy type: ischemic Mitral regurgitation I34.0 Cardiac valve disease etiology: nonrheumatic NSTEMI (non-ST elevated myocardial infarction) I21.4 Dyspnea R06.01 Dyspnea type: orthopnea Congestive heart failure I50.41 Heart failure type: combined systolic and diastolic Heart failure chronicity: acute Hypertension I10 Hyperlipidemia E78.5 Diabetes E11.9 LBBB (left bundle branch block) I44.7
--- NOTE | 2022-02-12 14:48 | PC.NURSE ---
At 1300 I removed 3ml of air from TR band. No bleeding occurred and we continued to remove air without problem. TR band removed at 1230. Site cleaned with alcohol and dressing applied
--- NOTE | 2022-02-12 16:17 | PM.PN ---
Subjective Subjective: Patient is feeling better. Her shortness of breath is improved. She is able to lay down flat. She underwent coronary angiogram and right heart cath today. Coronary angiogram revealed severe distal left main artery stenosis. She also had severe mid LAD stenosis. 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 Her right and left-sided cardiac pressures are significantly elevated. Vitals/I&O/Wt Last Vital Signs Temp 97.9 F 02/12/22 12:00 Pulse 112 H 02/12/22 15:14 Resp 16 02/12/22 15:11 BP 117/86 02/12/22 14:30 Pulse Ox 95 02/12/22 15:11 02/12/22 02/12/22 02/12/22 06:59 14:59 22:59 Intake Total 610 / 610 Balance 610 / 610 Physical Exam Narrative: GENERAL: Patient is alert, awake and oriented x3. [] NECK: No jugular vein distension. [] HEENT: No cyanosis. No icterus. No pallor. [] HEART: Regular S1 and S2. Grade 3/6 systolic murmur LUNGS: Mild crackles bilaterally ABDOMEN: Soft, nontender and nondistended. Positive bowel sounds. No guarding, rebound or tenderness. [] CENTRAL NERVOUS SYSTEM: Grossly nonfocal. [] EXTREMITIES: Lower extremities with 1+ edema bilaterally. Pulses palpable in the lower extremities, both dorsalis pedis and posterior tibial. [] Data : 02/11/22 05:18 02/12/22 02:28 A&P Assessment and plan (1) NSTEMI (non-ST elevated myocardial infarction): Status: Acute (2) Congestive heart failure: Status: Acute Qualifiers: Heart failure chronicity: acute Heart failure type: combined systolic and diastolic Qualified Code(s): I50.41 - Acute combined systolic (congestive) and diastolic (congestive) heart failure (3) LBBB (left bundle branch block): Status: Acute (4) Diabetes: Status: Acute (5) Hypertension: Status: Acute (6) Hyperlipidemia: Status: Acute (7) Mitral regurgitation: Status: Acute Qualifiers: Cardiac valve disease etiology: nonrheumatic Qualified Code(s): I34.0 - Nonrheumatic mitral (valve) insufficiency Plan Patient had presented with congestive heart failure symptoms and had significantly elevated troponin levels. She underwent right and left heart catheter today after diuresis for the last couple of days. She has severe multivessel coronary artery disease with severe distal left main stenosis, SHARED SERVICES AND OUTSOURCING MANAGER of proximal RCA and severe mid LAD stenosis. She also has eccentric severe mitral regurgitation on echocardiogram. She will need revascularization ideally with CABG and mitral valve replacement. We do not have CT surgery backup available currently in the hospital. She will be transferred to the hospital with these facilities. She prefers to go to [place]. We attempted the transfer today however both [facility] and [facility] did not have any bed availability. She will still wants to wait for another day to attempt alternate options. Continue IV diuresis Continue aspirin. Hold Plavix. Strict I&O's. Low-sodium diet Thank you for involving with us with care of this patient. We will continue to follow. Please call with questions. Attestations Medical Necessity Statement*: Care expected to cross 2 midnights Coding Level of Care Code Acute Graphite Disk Assembler for [facility] Fwd Diagnoses NSTEMI (non-ST elevated myocardial infarction) I21.4 Congestive heart failure I50.41 Heart failure chronicity: acute 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
[2022-02-12] MEDS: metoprolol tartrate 25 mg Tablet PO (20:15)
[2022-02-13] VITALS (7 sets, daily range): BP systolic 103–119; BP diastolic 66–84; PULSE 101–115; RESP 15–18; TEMP 36.6–37.2; O2SAT 92–98
[2022-02-13 03:25] LABS: Basophils % 0.1 %; Eosinophils % 0.3 %; Hematocrit 40.3 % (37.0-47.0); Hemoglobin 13.1 g/dL (11.5-15.3); Lymphocytes # 1.6 10^3/uL (0.8-4.8); Lymphocytes % 20.3 %; Mean Corpuscular HGB Conc 32.5 g/dL (30.0-36.0); Mean Corpuscular Hemoglobin 30.3 pg (28.0-34.0); Mean Corpuscular Volume 93.1 fl (81-99); Mean Platelet Volume 10.2 fL (7.4-10.4); Monocytes # 0.5 10^3/uL (0.2-0.9); Monocytes % 6.6 %; Neutrophils # 5.54 10^3/uL (1.8-7.7); Nucleated Red Blood Cells % 0 %; Platelet Count 268 10^3/cmm (130-400); Red Blood Count 4.33 10^6/uL (4.1-5.3); Red Cell Distribution Width 14.6 % (12.1-15.1); White Blood Count 7.7 10^3/uL (4.0-10.0)
[2022-02-13 03:44] LABS: Alanine Aminotransferase 36 U/L (0-33); Albumin Level 3.7 g/dL (3.5-5.2); Alkaline Phosphatase 69 IU/L (35-105); Anion Gap 11.8 (5-19); Aspartate Amino Transferase 26 U/L (0-32); Blood Urea Nitrogen 19 mg/dL (8-23); Calcium 8.9 mg/dL (8.5-10.5); Carbon Dioxide 30 mmol/L (22-29); Chloride 100 mmol/L (98-107); Glucose 122 mg/dL (65-115); Osmolality Calculated 290 mOsm/kg (285-295); Potassium 3.8 mmol/L (3.5-5.1); Sodium 138 mmol/L (136-145); Total Bilirubin 0.2 mg/dL (0.15-1.2); Total Protein 5.7 g/dL (6.6-8.7)
[2022-02-13] MEDS: ipratropium-albuterol 3 mL Neb INHALATION (04:17)
--- NOTE | 2022-02-13 08:20 | P.PN_ITS ---
Subjective Subjective: Patient is doing well at this time. Denies chest pain. Breathing difficulty is much better. Vitals/I&O/Wt Last Vital Signs Temp 98.9 F 02/13/22 07:22 Pulse 115 H 02/13/22 07:22 Resp 17 02/13/22 07:22 BP 119/84 02/13/22 07:22 Pulse Ox 92 02/13/22 07:22 02/12/22 02/13/22 02/13/22 22:59 06:59 14:59 Intake Total 240 / 850 1000 / 1850 Balance 240 / 850 1000 / 1850 Weight last 48 hrs Weight 156 lb Physical Exam Narrative: GENERAL: Patient is alert, awake and oriented x3. [] NECK: No jugular vein distension. [] HEENT: No cyanosis. No icterus. No pallor. [] HEART: Regular S1 and S2. Grade 3/6 systolic murmur LUNGS: Mild crackles bilaterally ABDOMEN: Soft, nontender and nondistended. Positive bowel sounds. No guarding, rebound or tenderness. [] CENTRAL NERVOUS SYSTEM: Grossly nonfocal. [] EXTREMITIES: Lower extremities with 1+ edema bilaterally. Pulses palpable in the lower extremities, both dorsalis pedis and posterior tibial. [] Data : 02/13/22 02:37 02/13/22 02:37 A&P Assessment and plan (1) NSTEMI (non-ST elevated myocardial infarction): Status: Acute (2) Congestive heart failure: Status: Acute Qualifiers: Heart failure chronicity: acute Heart failure type: combined systolic and diastolic Qualified Code(s): I50.41 - Acute combined systolic (congestive) and diastolic (congestive) heart failure (3) LBBB (left bundle branch block): Status: Acute (4) Diabetes: (5) Hypertension: (6) Hyperlipidemia: (7) Mitral regurgitation: Status: Acute Qualifiers: Cardiac valve disease etiology: nonrheumatic Qualified Code(s): I34.0 - Nonrheumatic mitral (valve) insufficiency Plan Patient had presented with congestive heart failure symptoms and had significant ly elevated troponin levels. She underwent right and left heart catheter today after diuresis for the last couple of days. 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 She also has eccentric severe mitral regurgitation on echocardiogram. She will need revascularization ideally with CABG and mitral valve replacement. Patient is going to be transferred to [facility] today as we do not have a CT surgery backup. Continue aspirin. Continue diuresis Strict I&O's. Low-sodium diet Thank you for involving with us with care of this patient. We will continue to follow. Please call with questions. Attestations Medical Necessity Statement*: Care expected to cross 2 midnights. Coding Level of Care Code Acute Health And Human Performance Professor for [facility] Diagnoses NSTEMI (non-ST elevated myocardial infarction) I21.4 Congestive heart failure I50.41 Heart failure chronicity: acute 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
[2022-02-13] MEDS: levothyroxine 125 mcg Tablet PO (08:29)
[2022-02-13] MEDS: liothyronine 5 mcg Tablet PO (08:29)
[2022-02-13] MEDS: losartan 50 mg Tablet PO (08:30)
[2022-02-13] MEDS: FUROsemide 10 mg/mL SDV 4mL 40 MG IVP (08:30)
[2022-02-13] MEDS: ALPRAZolam 0.5 mg Tablet 0.25 MG PO (08:31)
[2022-02-13] MEDS: metoprolol tartrate 25 mg Tablet PO (08:32)
[2022-02-13] MEDS: pantoprazole DR 40 mg Tablet PO (08:32)
[2022-02-13] MEDS: potassium chloride ER 10 mEq Tablet PO (08:32)
[2022-02-13] MEDS: aspirin 81 mg EC Tablet PO (08:35)
[2022-02-13] MEDS: BuSPIRONE 10 mg Tablet 15 MG PO (08:36)
[2022-02-13] MEDS: enoxaparin 80 mg/0.8 mL Syringe 70 MG SUBCUT (08:46)
[2022-02-13] MEDS: azithromycin 500 MG in sodium chloride 0.9% 250 ML 250 MG IV (08:52)
--- NOTE | 2022-02-13 09:36 | PC.NURSE ---
Report called to Heron Mcgee RN, at [facility]. Awaiting transport.
--- NOTE | 2022-02-13 09:40 | PM.TDS ---
Transfer Summary Providers Date of Admission: 02/08/22 21:54 Date of Discharge/Transfer: 02/13/22 Attending Provider at Admission: William Dumas MD Attending Provider at Transfer: Tyrone Cuello MD Consults: Cardiology: Dr. Torres Transfer Plans: Anticipated date of transfer: 02/13/22. Diagnoses at Discharge Discharge Diagnosis (1) NSTEMI (non-ST elevated myocardial infarction): Status: Acute (2) Congestive heart failure: Status: Acute Qualifiers: Heart failure chronicity: acute Heart failure type: combined systolic and diastolic Qualified Code(s): I50.41 - Acute combined systolic (congestive) and diastolic (congestive) heart failure (3) LBBB (left bundle branch block): Status: Acute (4) Diabetes: Status: Acute (5) Hypertension: Status: Acute (6) Hyperlipidemia: Status: Acute (7) Mitral regurgitation: Status: Acute Qualifiers: Cardiac valve disease etiology: nonrheumatic Qualified Code(s): I34.0 - Nonrheumatic mitral (valve) insufficiency Reason for Visit Reason for Visit SOB Brief History: History as per HPI: Jessica Larkin is a 66 year old female with past medical history of hypertension, hypothyroidism, current smoker who presented to the hospital with 3 weeks of worsening shortness of breath.? It is accompanied with orthopnea.? She is also noticing productive cough for the same duration.? She denies chest pain however says that at times she has felt pressure.? EKG showed sinus tachycardia with a left bundle branch block.? Her troponin trended up from 78 to 386 at 6 hours.? NT proBNP is significantly elevated and is 7449. CXR shows small bilateral pleural effusion and pulmonary edema. Hospital Course Hospital Course Patient went to the hospital further evaluation and management of new diagnosis congestive heart failure. On admission her troponin cycle trended upwards with left bundle branch seen on the EKG so cardiology was consulted. At start she was treated with aggressive IV diuresis. Echocardiogram was done which was consistent with an EF of 30% which has significantly dropped since her last echocardiogram from 2013, mildly dilated LV cavity, increased LA size along with severe eccentric mitral regurgitation encircling the LA. After achieving euvolemia patient underwent cardiac catheterization on 02/12 which showed severe distal left main artery stenosis.? She also had severe mid LAD stenosis.? RCA is proximally occluded and is a [employer].? Her right and left-sided cardiac pressures are significantly elevated. Patient would need CABG and mitral valve replacement. As at our hospital we do not have capability of mitral valve replacement/repair transfer was sought to a higher center. Patient was accepted at [facility] and is being transferred in hemodynamically stable condition. Physical Exam Const: COMMON NORMALS: patient oriented x3 HENMT: COMMON NORMALS: normocephalic and atraumatic HEAD & SCALP: normocephalic and atraumatic Eye: COMMON NORMALS: no scleral icterus GENERAL EYE: appearance normal, both eyes and all related structures Chest: COMMONS NORMALS: normal inspection of the chest and normal palpation of entire chest wall CHEST: Yes Symmetrical chest wall rise Resp: COMMON NORMALS: normal respiratory effort, No retractions, No use of accessory muscles and clear to auscultation bilaterally EFFORT & INSPECTION: Yes symmetric chest movement AUSCULTATION: clear to auscultation bilaterally Cardio: COMMON NORMALS: regular rate, regular rhythm, S1 normal heart sound present, S2 normal heart sound present, No gallops present (Cardio), No murmurs present (Cardio), No rub (Cardio) and Peripheral pulses 2+ throughout RATE: regular rate RHYTHM: regular rhythm HEART SOUNDS: S1 normal heart sound present and S2 normal heart sound present PERIPHERAL PULSES: Peripheral pulses 2+ throughout GI: COMMON NORMALS: Normal to inspection, nondistended, normoactive bowel sounds present, Soft to palpation, non-tender, No hepatosplenomegaly present and no masses AUSCULTATION: Yes normoactive bowel sounds PALPATION: Yes Soft to palpation and Yes No hepatosplenomegaly present RECTAL EXAM: deferred : COMMON NORMALS: Yes no CVA tenderness BLADDER/KIDNEY EXAM: Yes no CVA tenderness Back/Pelvis: COMMON NORMALS: no CVA tenderness Extremity: COMMON NORMALS: no clubbing, cyanosis or edema and no pedal edema Neuro: COMMON NORMALS: patient oriented x3 TS Data Studies Completed and Pending Pending at discharge Category Date Time Status Blood Culture Stat Lab 02/08/22 20:42 Results Labs from last 24 hours 02/13/22 02/13/22 02/12/22 02:37 02:37 11:01 WBC 7.7 RBC 4.33 Hgb 13.1 Hct 40.3 MCV 93.1 MCH 30.3 MCHC 32.5 RDW 14.6 Plt Count 268 MPV 10.2 Neut % (Auto) 72.0 Lymph % (Auto) 20.3 Harvey % (Auto) 6.6 Eos % (Auto) 0.3 Baso % (Auto) 0.1 Neut # (Auto) 5.54 Lymph # (Auto) 1.6 Harvey # (Auto) 0.5 Eos # (Auto) 0.0 Baso # (Auto) 0.0 Nucleated RBC % (auto) 0 Nucleated RBCs # 0.0 Specimen Type Arterial Sample Site Not specified ABG pH 7.46 H ABG pCO2 49.0 H ABG pO2 36.0 L* ABG HCO3 34.6 H ABG Base Excess 9.2 H Malik Test N/a Hematocrit 42.5 O2 Delivery Device Room air FiO2 21.0 Hand Ii Cutter ID Ed Sodium 138 Potassium 3.8 Chloride 100 Carbon Dioxide 30 H Anion Gap 11.8 BUN 19 Creatinine 0.7 GFR Calculation 84.0 L Glucose 122 H Calculated Osmolality 290 Calcium 8.9 Total Bilirubin 0.2 AST 26 ALT 36 H Alkaline Phosphatase 69 Total Protein 5.7 L Albumin 3.7 Globulin 2.0 02/12/22 10:59 WBC RBC Hgb Hct MCV MCH MCHC RDW Plt Count MPV Neut % (Auto) Lymph % (Auto) Harvey % (Auto) Eos % (Auto) Baso % (Auto) Neut # (Auto) Lymph # (Auto) Harvey # (Auto) Eos # (Auto) Baso # (Auto) Nucleated RBC % (auto) Nucleated RBCs # Specimen Type Arterial Sample Site Not specified ABG pH 7.48 H ABG pCO2 45.3 H ABG pO2 56.4 L ABG HCO3 33.7 H ABG Base Excess 8.9 H Malik Test N/a Hematocrit 42.3 O2 Delivery Device Room air FiO2 Hand Ii Cutter ID Ed Sodium Potassium Chloride Carbon Dioxide Anion Gap BUN Creatinine GFR Calculation Glucose Calculated Osmolality Calcium Total Bilirubin AST ALT Alkaline Phosphatase Total Protein Albumin Globulin Completed Studies During Hospitalization Category Date Time Status CTA chest [CT angio chest PE protcl [id number]] Urgent Cat Scan 02/08/22 19:59 Completed REPORT ANALYST request for service Routine Exams 02/12/22 06:29 Completed XR chest 1V portable [id number] Stat Exams 02/08/22 19:13 Completed CV. echo complete* [id number] Routine Ultrasound 02/09/22 22:47 Completed Laboratory Last Values WBC 7.7 10^3/uL (4.0-10.0) 02/13/22 02:37 RBC 4.33 10^6/uL (4.1-5.3) 02/13/22 02:37 Hgb 13.1 g/dL (11.5-15.3) 02/13/22 02:37 Hct 40.3 % (37.0-47.0) 02/13/22 02:37 MCV 93.1 fl (81-99) 02/13/22 02:37 MCH 30.3 pg (28.0-34.0) 02/13/22 02:37 MCHC 32.5 g/dL (30.0-36.0) 02/13/22 02:37 RDW 14.6 % (12.1-15.1) 02/13/22 02:37 Plt Count 268 10^3/cmm (130-400) 02/13/22 02:37 MPV 10.2 fL (7.4-10.4) 02/13/22 02:37 Neut % (Auto) 72.0 % 02/13/22 02:37 Lymph % (Auto) 20.3 % 02/13/22 02:37 Harvey % (Auto) 6.6 % 02/13/22 02:37 Eos % (Auto) 0.3 % 02/13/22 02:37 Baso % (Auto) 0.1 % 02/13/22 02:37 Neut # (Auto) 5.54 10^3/uL (1.8-7.7) 02/13/22 02:37 Lymph # (Auto) 1.6 10^3/uL (0.8-4.8) 02/13/22 02:37 Harvey # (Auto) 0.5 10^3/uL (0.2-0.9) 02/13/22 02:37 Eos # (Auto) 0.0 10^3/uL (0.0-0.8) 02/13/22 02:37 Baso # (Auto) 0.0 10^3/uL (0.0-0.1) 02/13/22 02:37 Nucleated RBC % (auto) 0 % 02/13/22 02:37 Nucleated RBCs # 0.0 /100WBC 02/13/22 02:37 PT 15.00 SECONDS (12.1-14.9) H 02/09/22 05:31 INR 1.15 (0.8-1.2) 02/09/22 05:31 APTT 35.9 SECONDS (23.9-36.7) 02/09/22 05:31 D-Dimer 0.99 ug/mIFEU (0-0.59) H 02/08/22 19:35 Specimen Type Arterial 02/12/22 11:01 Sample Site Not specified 02/12/22 11:01 ABG pH 7.46 (7.35-7.45) H 02/12/22 11:01 ABG pCO2 49.0 mmHg (35-45) H 02/12/22 11:01 ABG pO2 36.0 mmHg (80.0-100.0) L* 02/12/22 11:01 ABG HCO3 34.6 mmol/L (22-26) H 02/12/22 11:01 ABG Base Excess 9.2 mmol/L (-2.0-2.0) H 02/12/22 11:01 Malik Test N/a 02/12/22 11:01 Hematocrit 42.5 % (37-47) 02/12/22 11:01 O2 Delivery Device Room air 02/12/22 11:01 FiO2 21.0 % 02/12/22 11:01 Hand Ii Cutter ID Ed 02/12/22 11:01 Sodium 138 mmol/L (136-145) 02/13/22 02:37 Potassium 3.8 mmol/L (3.5-5.1) 02/13/22 02:37 Chloride 100 mmol/L (98-107) 02/13/22 02:37 Carbon Dioxide 30 mmol/L (22-29) H 02/13/22 02:37 Anion Gap 11.8 (5-19) 02/13/22 02:37 BUN 19 mg/dL (8-23) 02/13/22 02:37 Creatinine 0.7 mg/dL (0.5-0.9) 02/13/22 02:37 GFR Calculation 84.0 mL/min (90-130) L 02/13/22 02:37 Glucose 122 mg/dL (65-115) H 02/13/22 02:37 Calculated Osmolality 290 mOsm/kg (285-295) 02/13/22 02:37 Calcium 8.9 mg/dL (8.5-10.5) 02/13/22 02:37 Magnesium 2.4 mg/dL (1.7-2.3) H 02/12/22 02:28 Total Bilirubin 0.2 mg/dL (0.15-1.2) 02/13/22 02:37 AST 26 U/L (0-32) 02/13/22 02:37 ALT 36 U/L (0-33) H 02/13/22 02:37 Alkaline Phosphatase 69 IU/L (35-105) 02/13/22 02:37 Troponin T Baseline 78 ng/L (0-10) H 02/08/22 19:35 Troponin T 120 Minute 264.4 ng/L (0-10) H 02/08/22 23:34 Delta Troponin T 186.4 ABS# (0-10) H* 02/08/22 23:34 Troponin T Hi Sens 6Hr 386.4 ng/L (0-10) H 02/09/22 02:04 Troponin T Hi Sens 6Hr Delta 308.4 ng/L (0-12) H* 02/09/22 02:04 NT-Pro-B Natriuret Pep 7449 pg/mL (0-125) H 02/08/22 19:35 Total Protein 5.7 g/dL (6.6-8.7) L 02/13/22 02:37 Albumin 3.7 g/dL (3.5-5.2) 02/13/22 02:37 Globulin 2.0 g/dL (1.3-4.6) 02/13/22 02:37 TSH 1.44 uIU/mL (0.27-4.20) 02/09/22 02:04 Radiology Impressions Chest X-Ray 02/08/22 19:13 IMPRESSION: Ill-defined opacity in the peripheral right lung base. This may represent atelectasis or infiltrate/pneumonia. Additionally, this could represent sequela of fluid overload given mild cardiomegaly, potential small volume right pleural effusion, and increased interstitial lung markings which could reflect interstitial pulmonary edema. Chest CTA 02/08/22 19:59 IMPRESSION: 1. Negative for pulmonary embolism. 2. Sequela of fluid overload/pulmonary edema with small volume pleural effusions, right greater than left, and findings suggestive of interstitial pulmonary edema. Atelectasis at the posterior lung bases. Echocardiogram: IVC ?Dilated IVC with partial collapsibility.? Estimated RA pressure?15 mmHg ?CONCLUSIONS ?Diffuse hypokinesia of the left to end of the with an ejection?fraction of around 30%. ?Mildly dilated LV cavity. ?Mildly increased left atrial size. ? Possibly severe eccentric mitral regurgitation, encircling the?left atrium.?Thickened mitral valve. Mild mitral annular calcification. ?Thickened aortic valve. ?There is no pericardial effusion. ?There are no intracardiac masses. ?Compared to the study from 04/09/2014, there is significant drop?in the LV ejection fraction and development of severe mitral?regurgitation ?Dr Clive Reaves MD [facility] ?(Electronically Signed) ?Final Date:? ? ? 09 February 2022 ? 19:16 Catheter procedure Conclusions ? 1. Left main artery has significant ? 2. , severe ? 3. distal ? 4. 80% hazy looking stenosis. It is a calcified vessel LAD: Mid vessel has severe, calcified 70 stenosis Left circumflex artery: Patent RCA: Chronic to in the proximal segment.? Distal RCA receives collaterals from LAD territory. ? 5. Severe multivessel coronary artery disease including distal left main, mid LAD and chronic total occlusion of RCA. ? 6. Severely elevated right and left-sided cardiac pressures. Recommendations ? * Severe multivessel CAD including left main artery stenosis and [employer] of RCA, also has severe mitral regurgitation.? We will recommend CT surgery evaluation for CABG and mitral valve replacement.? We do not have CT surgery backup available currently in the hospital and patient will need to be transferred. ? * Continue IV diuresis. ? * Continue aspirin.? No Plavix. ? * Continue anticoagulation. Recent Clincial Data Last Vital Signs Temp 98.9 F 02/13/22 07:22 Pulse 115 H 02/13/22 07:22 Resp 17 02/13/22 07:22 BP 119/84 02/13/22 08:30 Pulse Ox 92 02/13/22 07:22 Vital Signs Temp Pulse Resp BP Pulse Ox 02/13/22 08:30 119/84 02/13/22 07:22 98.9 F 115 H 17 119/84 92 02/13/22 04:24 102 H 02/13/22 04:18 108 H 15 98 02/13/22 04:00 97.9 F 108 H 18 105/72 96 02/13/22 00:00 101 H 17 103/66 95 Intake & Output/Weight 02/11/22 02/12/22 02/13/22 02/14/22 06:59 06:59 06:59 06:59 Intake Total 490 / 490 250 / 250 1850 / 1850 480 / 480 Balance 490 / 490 250 / 250 1850 / 1850 480 / 480 Weight 70.76 kg Vitals Last Vital Signs Temp 98.9 F 02/13/22 07:22 Pulse 115 H 02/13/22 07:22 Resp 17 02/13/22 07:22 BP 119/84 02/13/22 08:30 Pulse Ox 92 02/13/22 07:22 TS Medications Medications Acetaminophen (Acetaminophen 325 Mg Tablet) 650 mg PO Q6H PRN PRN Reason: Mild/Mod Pain Or Temp >/= 101 Al Hydrox/Mg Hydrox/Simethicone (Rfxo-Ugy-Fukcvonqw-Jesi 30 Ml Udc) 30 ml PO Q15M PRN PRN Reason: INDIGESTION Alprazolam (Alprazolam 0.5 Mg Tablet) 0.25 mg PO BID PRN PRN Reason: ANXIETY Last Admin: 02/13/22 08:31 Dose: 0.25 mg Documented by: Alprazolam (Alprazolam 0.5 Mg Tablet) 0.25 mg PO Q8H PRN PRN Reason: Anxiety Aspirin (Aspirin 81 Mg Ec Tablet) 81 mg PO DAILY [facility] Last Admin: 02/13/22 08:35 Dose: 81 mg Documented by: Atorvastatin Calcium (Atorvastatin 40 Mg Tablet) 40 mg PO BEDTIME [facility] Last Admin: 02/12/22 20:15 Dose: Not Given Documented by: Bisacodyl (Bisacodyl 5 Mg Tablet) 10 mg PO DAILY PRN; Protocol PRN Reason: Constipation (see protocol) Buspirone HCl (Buspirone 10 Mg Tablet) 15 mg PO BID [facility] Last Admin: 02/13/22 08:36 Dose: 15 mg Documented by: Enoxaparin Sodium (Enoxaparin 80 Mg/0.8 Ml Syringe) 70 mg SUBCUT Q12H [facility] Last Admin: 02/13/22 08:46 Dose: 70 mg Documented by: Furosemide (Furosemide 10 Mg/Ml Sdv 4ml) 40 mg IVP Q24H [facility] Last Admin: 02/13/22 08:30 Dose: 40 mg Documented by: Azithromycin 500 mg/ Sodium (Chloride) 250 mls @ 250 mls/hr IV Q24H [facility]; Protocol Last Admin: 02/13/22 08:52 Dose: 250 mls/hr Documented by: Lanolin (Lanolin Oint 7 Gm) 1 applic TOPICAL PRN PRN PRN Reason: DRYNESS Levothyroxine Sodium (Levothyroxine 125 Mcg Tablet) 125 mcg PO DAILY [facility] Last Admin: 02/13/22 08:29 Dose: 125 mcg Documented by: Liothyronine Sodium (Liothyronine 5 Mcg Tablet) 5 mcg PO DAILY [facility] Last Admin: 02/13/22 08:29 Dose: 5 mcg Documented by: Losartan Potassium (Losartan 50 Mg Tablet) 50 mg PO DAILY [facility] Last Admin: 02/13/22 08:30 Dose: 50 mg Documented by: Magnesium Hydroxide (Magnesium Hydroxide 30 Ml Udc) 30 ml PO DAILY PRN PRN Reason: CONSTIPATION Metoprolol Tartrate (Metoprolol Tartrate 25 Mg Tablet) 25 mg PO BID@0900,2100 [facility] Last Admin: 02/13/22 08:32 Dose: 25 mg Documented by: Naloxone HCl (Naloxone 0.4 Mg/Ml Sdv) 0.1 mg IVP Q2M PRN PRN Reason: RESPIRATORY RATE < 8/MIN Nitroglycerin (Nitroglycerin 0.4 Mg Sublingual Tablet) 0.4 mg SUBLINGUAL Q5M PRN PRN Reason: CHEST PAIN Ondansetron HCl (Ondansetron 2 Mg/Ml Sdv 2 Ml) 4 mg IVP Q8H PRN PRN Reason: vomiting, or N/V if npo Pantoprazole Sodium (Pantoprazole Dr 40 Mg Tablet) 40 mg PO DAILY [facility] Last Admin: 02/13/22 08:32 Dose: 40 mg Documented by: Potassium Chloride (Potassium Chloride Er 10 Meq Tablet) 10 meq PO DAILY [facility] Last Admin: 02/13/22 08:32 Dose: 10 meq Documented by: Prednisone (Prednisone 20 Mg Tablet) 40 mg PO DAILY [facility] Stop: 02/16/22 08:59 Fluticasone/Salmeterol (Fluticasone-Salmeterol 250-50 Diskus) 1 puff INHALATION BID.RESPIRATORY MADIE Sucralfate (Sucralfate 1 Gm Tablet) 1 gm PO QID MADIE Temazepam (Temazepam 15 Mg Capsule) 15 mg PO BEDTIME PRN PRN Reason: INSOMNIA Tiotropium [place] (Tiotropium 18 Mcg Mdi) 18 mcg INHALATION DAILY.RESPIRATORY MADIE Discontinued Medications Acetaminophen (Acetaminophen 325 Mg Tablet) 650 mg PO Q6H PRN PRN Reason: MILD PAIN Albuterol/Ipratropium (Ipratropium-Albuterol 3 Ml Neb) 3 ml INHALATION Q6H [facility]ADIE Albuterol/Ipratropium (Ipratropium-Albuterol 3 Ml Neb) 3 ml INHALATION Q6H.RESPIRATORY MADIE Last Admin: 02/13/22 04:17 Dose: 3 ml Documented by: Alprazolam (Alprazolam 0.5 Mg Tablet) 0.5 mg PO ONCE ONE Stop: 02/11/22 23:17 Last Admin: 02/11/22 23:21 Dose: 0.5 mg Documented by: Atropine Sulfate (Atropine 1 Mg/Ml Sdv 1 Ml) 0.5 mg IVP PRN PRN PRN Reason: Symptomatic bradycardia Diphenhydramine HCl (Diphenhydramine 50 Mg Capsule) 50 mg PO ONCE ONE Stop: 02/11/22 19:34 Last Admin: 02/12/22 08:19 Dose: Not Given Documented by: Diphenhydramine HCl (Diphenhydramine 50 Mg Capsule) 50 mg PO ONCE ONE Stop: 02/12/22 08:19 Last Admin: 02/12/22 09:11 Dose: 50 mg Documented by: Enoxaparin Sodium (Enoxaparin 40 Mg/0.4 Ml Syringe) 40 mg SUBCUT Q24H [facility] Last Admin: 02/08/22 23:53 Dose: 40 mg Documented by: Enoxaparin Sodium (Enoxaparin 30 Mg/0.3 Ml Syringe) 30 mg SUBCUT ONCE ONE Stop: 02/09/22 00:40 Last Admin: 02/09/22 00:50 Dose: 30 mg Documented by: Fentanyl (Fentanyl 50 Mcg/Ml Inj 2ml) Confirm Administered Dose 100 mcg .ROUTE .STK-MED ONE Stop: 02/12/22 09:02 Fentanyl (Fentanyl 50 Mcg/Ml Inj 2ml) 50 mcg IVP PRN PRN PRN Reason: Prior to sheath removal Furosemide (Furosemide 10 Mg/Ml Sdv 10ml) 60 mg IVP ONCE ONE Stop: 02/08/22 21:52 Last Admin: 02/08/22 22:27 Dose: 60 mg Documented by: Furosemide (Furosemide 10 Mg/Ml Sdv 4ml) 40 mg IVP Q12H [facility] Last Admin: 02/12/22 06:24 Dose: 40 mg Documented by: Heparin Sodium (Porcine) (Heparin 5,000 Unit/Ml Inj 1 Ml) Confirm Administered Dose 5,000 unit .ROUTE .STK-MED ONE Stop: 02/12/22 09:03 Heparin Sodium (Porcine) (Heparin 5,000 Unit/Ml Inj 1 Ml) Confirm Administered Dose 5,000 unit .ROUTE .STK-MED ONE Stop: 02/12/22 09:14 Azithromycin 500 mg/ Sodium (Chloride) 250 mls @ 250 mls/hr IV ONCE ONE; Protocol Stop: 02/08/22 20:58 Last Infusion: 02/08/22 23:47 Dose: Infused Documented by: Ceftriaxone Sodium 1,000 mg/ (Sodium Chloride) 50 mls @ 100 mls/hr IV ONCE ONE; Protocol Stop: 02/08/22 20:28 Last Infusion: 02/08/22 23:02 Dose: Infused Documented by: Sodium Chloride (Sodium Chloride 0.9%) 1,000 mls @ 50 mls/hr IV .Q20H ONE Stop: 02/12/22 15:32 Last Infusion: 02/12/22 23:50 Dose: Infused Documented by: Lidocaine HCl (Lidocaine 1%) Confirm Administered Dose 10 mls @ as directed .ROUTE .STK-MED ONE Stop: 02/12/22 09:14 Iohexol (Iohexol 350 Mg/Ml 100 Ml Btl) 0 ml IV ONCE ONE Stop: 02/08/22 21:31 Last Admin: 02/08/22 21:30 Dose: 67 ml Documented by: Lisinopril (Lisinopril 20 Mg Tablet) 40 mg PO DAILY [facility] Last Admin: 02/11/22 09:31 Dose: Not Given Documented by: Lorazepam (Lorazepam 2 Mg/Ml Inj 1 Ml) 0.5 mg IVP ONCE ONE Stop: 02/08/22 19:17 Last Admin: 02/08/22 22:09 Dose: Not Given Documented by: Lorazepam (Lorazepam 1 Mg Tablet) 1 mg PO TID PRN PRN Reason: ANXIETY Last Admin: 02/09/22 08:40 Dose: 1 mg Documented by: Methylprednisolone Sodium Succinate (Methylprednisolone Sod Succ 125 Mg/2 Ml Inj) 60 mg IVP Q12H [facility] Last Admin: 02/09/22 11:58 Dose: 60 mg Documented by: Methylprednisolone Sodium Succinate (Methylprednisolone Sod Succ 40 Mg/Ml Inj) 40 mg IVP Q12H [facility] Last Admin: 02/12/22 13:21 Dose: 40 mg Documented by: Methylprednisolone Sodium Succinate (Methylprednisolone Sod Succ 40 Mg/Ml Inj) 40 mg IVP DAILY [facility] Metoprolol Tartrate (Metoprolol Tartrate 25 Mg Tablet) 12.5 mg PO BID@0900,2100 [facility] Last Admin: 02/12/22 09:16 Dose: 12.5 mg Documented by: Midazolam HCl (Midazolam 1 Mg/Ml Inj 2 Ml) Confirm Administered Dose 2 mg .ROUTE .STK-MED ONE Stop: 02/12/22 09:02 Nitroglycerin (Nitroglycerin 5 Mg/Ml Sdv 10 Ml) Confirm Administered Dose 50 mg .ROUTE .STK-MED ONE Stop: 02/12/22 10:50 Allergies levofloxacin [From Levaquin] Allergy (Verified 02/09/22 09:14) RASH Home Medications liothyronine 5 mcg tablet 5 mcg PO DAILY 11/09/19 [History Confirmed 02/09/22] cholecalciferol (vitamin D3) 125 mcg (5,000 unit) tablet (Vitamin D3) 5,000 unit PO DAILY #30 tab 04/20/20 [Rx Confirmed 02/09/22] omeprazole 40 mg capsule,delayed release 40 mg PO BID #60 cap 04/20/20 [Rx Confirmed 02/09/22] potassium chloride 10 mEq tablet,extended release 10 meq PO DAILY #30 tab 04/20/20 [Rx Confirmed 02/09/22] selenium 50 mcg tablet 50 mcg PO DAILY 04/20/20 [History Confirmed 02/09/22] sucralfate 1 gram tablet (Carafate) 1 gm PO QID #120 tab 04/20/20 [Rx Confirmed 02/09/22] albuterol sulfate 90 mcg/actuation aerosol inhaler See Rx Instructions .ROUTE .COMPLEX #18 g 04/28/21 [Rx Confirmed 02/09/22] alprazolam 0.25 mg tablet 0.25 mg PO DAILY PRN 02/09/22 [History Confirmed 02/09/22] ascorbic acid (vitamin C) 250 mg tablet (Vitamin C) 250 mg PO DAILY 02/09/22 [History Confirmed 02/09/22] aspirin 81 mg tablet,delayed release 81 mg PO DAILY 02/09/22 [History Confirmed 02/09/22] budesonide 0.5 mg/2 mL suspension for nebulization 0.5 mg INHALATION BID 02/09/22 [History Confirmed 02/09/22] buspirone 15 mg tablet 15 mg PO BID 02/09/22 [History Confirmed 02/09/22] chromium picolinate 200 mcg tablet 200 mcg PO DAILY 02/09/22 [History Confirmed 02/09/22] furosemide 20 mg tablet 20 mg PO DAILY 02/09/22 [History Confirmed 02/09/22] ipratropium 0.5 mg-albuterol 3 mg (2.5 mg base)/3 mL nebulization soln 3 ml INHALATION QID 02/09/22 [History Confirmed 02/09/22] levothyroxine 100 mcg tablet (Synthroid) 100 mcg PO DAILY 02/09/22 [History Confirmed 02/09/22] lisinopril 40 mg tablet 40 mg PO DAILY 02/09/22 [History Confirmed 02/09/22] magnesium 30 mg tablet 30 mg PO DAILY 02/09/22 [History Confirmed 02/09/22] niacin 50 mg tablet 50 mg PO DAILY 02/09/22 [History Confirmed 02/09/22] zinc 50 mg tablet 50 mg PO DAILY 02/09/22 [History Confirmed 02/09/22] Discharge Plan Discharge Patient Disposition: Home Condition: Stable Prescriptions: No Action liothyronine 5 mcg tablet 5 mcg PO DAILY 0RF selenium 50 mcg tablet 50 mcg PO DAILY 0RF cholecalciferol (vitamin D3) [Vitamin D3] 125 mcg (5,000 unit) tablet 5,000 unit PO DAILY Qty: 30 11RF Rx Instructions: 2 CAPS 5 DAYS A WEEK potassium chloride 10 mEq tablet extended release 10 meq PO DAILY Qty: 30 11RF omeprazole 40 mg capsule,delayed release(DR/EC) 40 mg PO BID Qty: 60 11RF sucralfate [Carafate] 1 gram tablet 1 gm PO QID Qty: 120 3RF Rx Instructions: Take before meals and before bed albuterol sulfate 90 mcg/actuation HFA aerosol inhaler See Rx Instructions .ROUTE .COMPLEX Qty: 18 2RF Dose Instruction: INHALE 2 PUFFS BY MOUTH 4 TIMES DAILY NEEDED FOR SHORTNESS OF BREATH OR WHEEZING Rx Instructions: INHALE 2 PUFFS BY MOUTH 4 TIMES DAILY NEEDED FOR SHORTNESS OF BREATH OR WHEEZING ipratropium-albuterol 0.5 mg-3 mg(2.5 mg base)/3 mL solution for nebulization 3 ml INHALATION QID 0RF Synthroid 100 mcg tablet 100 mcg PO DAILY 0RF alprazolam 0.25 mg Tablet 0.25 mg PO DAILY PRN (Reason: Anxiety) 0RF chromium picolinate 200 mcg Tablet 200 mcg PO DAILY 0RF budesonide 0.5 mg/2 mL suspension for nebulization 0.5 mg inhalation BID 0RF buspirone 15 mg Tablet 15 mg PO BID 0RF furosemide 20 mg tablet 20 mg PO DAILY 0RF lisinopril 40 mg tablet 40 mg PO DAILY 0RF niacin 50 mg Tablet 50 mg PO DAILY 0RF Vitamin C 250 mg Tablet 250 mg PO DAILY 0RF zinc 50 mg Tablet 50 mg PO DAILY 0RF magnesium 30 mg Tablet 30 mg PO DAILY 0RF Aspir-81 81 mg Tablet,Delayed Release (Dr/Ec) 81 mg PO DAILY 0RF Discharge Orders: Discharge Order (Routine); Ordered 02/13/22 Ordered By: Tyrone Cuello Transfer Out of Facility (Order); Ordered 02/13/22 Ordered By: Tyrone Cuello Discharge Diet: Regular, Cardiac and Diabetic Discharge Activity: Resume usual activity and Increase activity as tolerated Patient Instructions: Opioid Safety Transfer Attestations Time Spent in Transfer Care: greater than 30 min Specific Discharge Activities: educating patient, educating and/or supporting family/caregiver, discussing with pcp/other providers, discussing with pillowcase cleaner/social workers/dc planners, documenting/other paperwork and evaluating patient/reviewing data Status at Transfer: Cognitive status at transfer: cognitively intact; Behavioral status at transfer: cooperative; Functional status at transfer: independent ambulation; Overall status at transfer: patient is not back to baseline Quality Metrics Clinical Quality Measures [ No reported AMI, CVA or VTE this stay] Coding Level of Care Code Acute Landing Support Specialist for Kat Fwd History Comprehensive Exam Comprehensive Medical Decision Making High Complexity Diagnoses NSTEMI (non-ST elevated myocardial infarction) I21.4 Congestive heart failure I50.41 Heart failure chronicity: acute 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
[2022-02-13] MEDS: predniSONE 20 mg Tablet 40 MG PO (10:21)
--- NOTE | 2022-02-13 11:00 | PC.SOCIAL ---
IMM update IMM updated with patient and family at bedside. Copy Pg 2 provided. Verbalized an understanding. Initialled, dated, timed, and placed in chart.
== END 2022-02-13 10:57 | disposition short-term general hospital (02) | DRG 280 ==
LOC: ER 22:04 → MEDSURG 22:30 → CSU 02-12 11:48 → MEDSURG 02-12 15:08
PROVIDERS: Internal Medicine; Admitting Provider Internal Medicine; Emergency Provider Emergency Medicine; Visit Provider Student in an Organized Health Care Education/Training Program
PROC: 4A023N8 Measurement of Cardiac Sampling and Pressure, Bilateral, Percutaneous Approach (ICD-10-PCS; principal; 2022-02-12 10:00)
DX: I11.0 Hypertensive heart disease with heart failure (principal); I50.43 Acute on chronic combined systolic (congestive) and diastolic (congestive) heart failure; I21.4 Non-ST elevation (NSTEMI) myocardial infarction; J44.1 Chronic obstructive pulmonary disease with (acute) exacerbation; I25.10 Atherosclerotic heart disease of native coronary artery without angina pectoris; F17.200 Nicotine dependence, unspecified, uncomplicated; E03.9 Hypothyroidism, unspecified; E11.9 Type 2 diabetes mellitus without complications; K21.9 Gastro-esophageal reflux disease without esophagitis; E78.5 Hyperlipidemia, unspecified; I44.7 Left bundle-branch block, unspecified; Z79.82 Long term (current) use of aspirin; I25.5 Ischemic cardiomyopathy; I34.0 Nonrheumatic mitral (valve) insufficiency; F41.9 Anxiety disorder, unspecified
CPT/HCPCS: 36415; 36600; 71045; 71275; 80048; 80053; 82803; 83735; 83880; 84443; 84484; 85025; 85378; 85610; 85730; 87040; 87070; 87205; 93005; 93306; 93453; 93460; 94640; 94660; 96360; 96365; 96367; 96372; 96375; 99152; 99153; 99291; C1751; C1769; C1887; C1894; J0456; J0696; J1644; J1650; J1940; J2250; J2920; J2930; J3010; J3490; J7030; J7050; J7512; Q0163; Q9967

== ENCOUNTER → 2022-03-13 10:46 | Outpatient (BNVA) | payer MEDICARE, SELFPAY | PROVIDERS: PCP Family Medicine; Visit Provider Nurse Practitioner Family | DX: I25.810 Atherosclerosis of coronary artery bypass graft(s) without angina pectoris (principal); I11.0 Hypertensive heart disease with heart failure; I50.41 Acute combined systolic (congestive) and diastolic (congestive) heart failure; I25.5 Ischemic cardiomyopathy; Z87.891 Personal history of nicotine dependence | CPT/HCPCS: 99214 ==

== ENCOUNTER → 2022-03-27 10:54 | Outpatient (BNVA) | payer MEDICARE, SELFPAY | PROVIDERS: PCP Family Medicine; Visit Provider Nurse Practitioner Family | DX: I25.10 Atherosclerotic heart disease of native coronary artery without angina pectoris (principal); Z95.1 Presence of aortocoronary bypass graft; Z87.891 Personal history of nicotine dependence; I11.0 Hypertensive heart disease with heart failure; I50.41 Acute combined systolic (congestive) and diastolic (congestive) heart failure | CPT/HCPCS: 36415; 80048; 82728; 83540; 83550; 83880; 85025; 99214 ==

== ENCOUNTER 2022-04-12 12:04 | Outpatient (CLI) | payer MEDICARE, SELFPAY ==
--- NOTE | 2022-04-12 12:13 | XR_ITS ---
WS: [id number] XR chest 2V* [id number] REASON FOR EXAM: pleural effusion FINDINGS: Since previous examination of 02/08/2022, there has been coronary bypass surgery and presumed aortic va lvular replacement. There is cardiomegaly. There are coarse reticular interstitial densities throughout both lungs. These findings are not as pr ominent as on the previous examination of 02/08/2022. There are now bilateral pleural effusions not present on the previous examination. XR/XR chest 2V* [id number] IMPRESSION: Status post recent coronary bypass surgery with presumed congestive failure and bilateral pleural effusions.
[2022-04-12 12:26] LABS: Basophils % 0.5 %; Eosinophils # 0.1 10^3/uL (0.0-0.8); Eosinophils % 1.5 %; Hematocrit 34.3 % (37.0-47.0); Hemoglobin 9.8 g/dL (11.5-15.3); Lymphocytes # 0.8 10^3/uL (0.8-4.8); Lymphocytes % 10.2 %; Mean Corpuscular HGB Conc 28.6 g/dL (30.0-36.0); Mean Corpuscular Volume 87.5 fl (81-99); Mean Platelet Volume 9.6 fL (7.4-10.4); Monocytes # 0.6 10^3/uL (0.2-0.9); Monocytes % 8.2 %; Neutrophils # 6.13 10^3/uL (1.8-7.7); Neutrophils % 79.1 %; Nucleated Red Blood Cells % 0.3 %; Platelet Count 410 10^3/cmm (130-400); Red Blood Count 3.92 10^6/uL (4.1-5.3); Red Cell Distribution Width 17.2 % (12.1-15.1); White Blood Count 7.8 10^3/uL (4.0-10.0)
[2022-04-12 13:00] LABS: Iron 16 ug/dL (37-145)
== END 2022-04-12 12:05 | disposition home or self-care (01) ==
LOC: LAB 12:08
PROVIDERS: PCP Family Medicine; Visit Provider Nurse Practitioner Family
DX: I50.41 Acute combined systolic (congestive) and diastolic (congestive) heart failure (principal); D64.9 Anemia, unspecified; D50.9 Iron deficiency anemia, unspecified; I44.7 Left bundle-branch block, unspecified
CPT/HCPCS: 36415; 71046; 83540; 85025

== ENCOUNTER → 2022-04-13 11:59 | Outpatient (BNVA) | payer MEDICARE, SELFPAY | PROVIDERS: PCP Family Medicine; Visit Provider Nurse Practitioner Family | DX: I25.5 Ischemic cardiomyopathy (principal); I11.0 Hypertensive heart disease with heart failure; I50.41 Acute combined systolic (congestive) and diastolic (congestive) heart failure; Z87.891 Personal history of nicotine dependence | CPT/HCPCS: 99213; 99214 ==

== ENCOUNTER 2022-04-15 13:25 | Inpatient (IN) | payer MEDICARE, SELFPAY ==
[2022-04-15] VITALS (8 sets, daily range): BP systolic 103–120; BP diastolic 75–84; PULSE 109–114; RESP 18–31; TEMP 36.4; O2SAT 93–97; BMI 26.8
--- NOTE | 2022-04-15 14:03 | ECG_ITS ---
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 Measurements Intervals [place] Rate: 109 P: MO: QRS: 5 QRSD: 142 T: 137 QT: 376 QTc: 508 Interpretive Statements SINUS TACHYCARDIA LEFT BUNDLE BRANCH BLOCK [120+ ms QRS DURATION, 80+ ms Q/S IN V1/V2, 85+ ms R IN I/aVL/V5/V6] No previous ECG available for comparison Electronically Signed On 04-16-2022 17:40:14 CDT by Messi Torres M.D. [email or web address] [id number] f
--- NOTE | 2022-04-15 14:03 | XRR_ITS ---
PROCEDURE INFORMATION: Exam: XR Chest Exam date and time: 04/15/2022 2:18 PM Age: 66 years old Clinical indication: Cough and dyspnea; Additional info: Dyspnea/cough TECHNIQUE: Imaging protocol: Radiologic exam of the chest. Views: 1 view. COMPARISON: No relevant prior studies available. FINDINGS: Lungs: Minimal reticular interstitial prominence is also noted, nonspecific but may be related to mild interstitial pulmonary edema. Follow-up should be obtained. Interstitial pneumonia cannot be excluded. Pleural spaces: Bilateral basilar opacities suggesting bilateral pleural effusions with atelectasis and/or pneumonia. Clinical correlation and follow-up should be obtained. Heart/Mediastinum: Enlarged cardiac silhouette size with slightly cephalized vascularity suggesting CHF. Bones/joints: Sternotomy wires and CABG clips. Cardiac valve prosthesis is noted. XR/XR chest 1V portable [id number] IMPRESSION: CHF and bilateral basilar opacities. Minimal interstitial prominence is also present. See discussion above.
[2022-04-15 14:16] LABS: Basophils # 0.1 10^3/uL (0.0-0.1); Basophils % 0.6 %; Eosinophils # 0.1 10^3/uL (0.0-0.8); Hematocrit 39.3 % (37.0-47.0); Hemoglobin 11.3 g/dL (11.5-15.3); Lymphocytes # 0.7 10^3/uL (0.8-4.8); Mean Corpuscular HGB Conc 28.8 g/dL (30.0-36.0); Mean Corpuscular Hemoglobin 24.6 pg (28.0-34.0); Mean Corpuscular Volume 85.4 fl (81-99); Mean Platelet Volume 9.7 fL (7.4-10.4); Monocytes # 0.7 10^3/uL (0.2-0.9); Monocytes % 7.3 %; Neutrophils # 7.84 10^3/uL (1.8-7.7); Neutrophils % 83.7 %; Nucleated Red Blood Cells # 0.1 /100WBC; Nucleated Red Blood Cells % 0.9 %; Platelet Count 573 10^3/cmm (130-400); Red Cell Distribution Width 17.3 % (12.1-15.1); White Blood Count 9.4 10^3/uL (4.0-10.0)
--- NOTE | 2022-04-15 14:17 | ED_ITS ---
HPI - Weakness General: Chief complaint: Weakness Stated complaint: SOB Time Seen by Provider: 04/15/22 14:03 Source: patient Mode of arrival: wheelchair History of Present Illness: 66-year-old female presents emergency room with e xtreme shortness of breath orthopnea and just generally feeling weak and tired. She has a history of a cardiomyopathy although due to an EMR discrepancy at the moment I cannot see her old records. She tells me she recently had bypass afterwards she had an ejection fraction of 20% and she has had a LifeVest on since. She had recently seen the midlevel at the cardiology office and had adjustments made to her medications. They had continued her on a beta-coy stop some of her other medications. She tells me she cannot recall any discussions about having an ICD placed. Over the last few days she has had increased weight gain and swelling in her legs and worsening orthopnea MD Complaint: generalized weakness Onset (ago): day(s) Duration: constant Migration: none Severity: moderate Exacerbating factors: exertion and other (Lying supine) Associated symptoms: Reports decreased appetite and short of breath; Denies chest pain, chills, confusion, melena, diaphoresis, dysuria, easy bruisi ng, fever(s), headache(s), myalgias, nausea, rash, syncope or vomiting Review of Systems Const: Denies: fever(s), chills, fatigue, malaise or diaphoresis ENMT: Denies: throat pain, ear or mastoid pain, nasal discharge or nasal congestion Card: Denies: chest pain, palpitations, lightheadedness or syncope Resp: Denies: dyspnea, productive cough or non-productive cough GI: Denies: abdominal pain, nausea, vomiting or melena : Denies: flank pain, difficulty voiding or dysuria Musc: Denies: neck pain or back pain Skin/Breast: Denies: rash or pruritus Neuro: Denies: headache(s) or confusion All/Lymph: Denies: easy bruising Physical Exam Const: COMMON NORMALS: no acute distress GENERAL APPEARANCE: cooperative and comfortable ORIENTATION/CONSCIOUSNESS: Yes awake, Yes oriented to person, Yes oriented to place and Yes oriented to time HENMT: COMMON NORMALS: normocephalic, atraumatic and hearing grossly normal bilaterally HEAD & SCALP: normocephalic and atraumatic Resp: COMMON NORMALS: normal respiratory effort, No retractions and No use of accessory muscles AUSCULTATION: rales Cardio: COMMON NORMALS: regular rate, regular rhythm and No murmurs present (Cardio) RATE: regular rate RHYTHM: regular rhythm GI: COMMON NORMALS: Soft to palpation and No hepatosplenomegaly present AUSCULTATION: Yes normoactive bowel sounds PALPATION: Yes Soft to palpation, No Tenderness to palpation present (GI), No Guarding due to palpation present (GI) and Yes No hepatosplenomegaly present Extremity: COMMON NORMALS: normal to inspection, capillary refill normal, no clubbing, cyanosis or edema, no calf tenderness and no pedal edema Neuro: SENSORIUM/ORIENTATION: Yes oriented to person, Yes oriented to place and Yes oriented to time Skin: COMMON NORMALS: no rashes or lesions noted GENERAL SKIN EXAM: no rashes or lesions noted Course Vital Signs: Vital signs: Vital Signs Temperature 97.5 F L 04/15/22 13:39 Pulse Rate 111 H 04/15/22 15:11 Respiratory Rate 19 H 04/15/22 15:11 Blood Pressure 112/80 04/15/22 13:39 Pulse Oximetry 97 04/15/22 15:11 Oxygen Delivery Me thod 04/15/22 15:11 Oxygen Flow Rate 2 04/15/22 15:11 MDM - Weakness Medical Decision Making Patient in severe exacerbation of CHF. Family is at the bedside they are okay with us treating her but wants to do so in moderation I do not want any anything more aggressive than the BiPAP that is already been started. I did warn them her Situation is very poor at this point and very very guarded prognosis pH on initial presentation was 7.08. They are understanding of this and wish only minimal interventions if she does not improve they would likely change to comf ort cares only. Also the hospitalist orders written Medical Records I reviewed the patient's medical records. Lab Data I reviewed the patient's lab results. : 04/15/22 14:08 04/15/22 14:08 Radiology Impressions Chest X-Ray 04/15/22 14:03 IMPRESSION: CHF and bilateral basilar opacities. Minimal interstitial prominence is also present. See discussion above. Laboratory Results WBC 9.4 10^3/uL (4.0-10.0) 04/15/22 14:08 RBC 4.60 10^6/uL (4.1-5.3) 04/15/22 14:08 Hgb 11.3 g/dL (11.5-15.3) L 04/15/22 14:08 Hct 39.3 % (37.0-47.0) 04/15/22 14:08 MCV 85.4 fl (81-99) 04/15/22 14:08 MCH 24.6 pg (28.0-34.0) L 04/15/22 14:08 MCHC 28.8 g/dL (30.0-36.0) L 04/15/22 14:08 RDW 17.3 % (12.1-15.1) H 04/15/22 14:08 Plt Count 573 10^3/cmm (130-400) H 04/15/22 14:08 MPV 9.7 fL (7.4-10.4) 04/15/22 14:08 Neut % (Auto) 83.7 % 04/15/22 14:08 Lymph % (Auto) 7.0 % 04/15/22 14:08 [place] % (Auto) 7.3 % 04/15/22 14:08 Eos % (Auto) 1.0 % 04/15/22 14:08 Baso % (Auto) 0.6 % 04/15/22 14:08 Neut # (Auto) 7.84 10^3/uL (1.8-7.7) H 04/15/22 14:08 Lymph # (Auto) 0.7 10^3/uL (0.8-4.8) L 04/15/22 14:08 [place] # (Auto) 0.7 10^3/uL (0.2-0.9) 04/15/22 14:08 Eos # (Auto) 0.1 10^3/uL (0.0-0.8) 04/15/22 14:08 Baso # (Auto) 0.1 10^3/uL (0.0-0.1) 04/15/22 14:08 Nucleated RBC % (auto) 0.9 % 04/15/22 14:08 Nucleated RBCs # 0.1 /100WBC 04/15/22 14:08 Sodium 129 mmol/L (136-145) L 04/15/22 14:08 Potassium 5.2 mmol/L (3.5-5.1) H 04/15/22 14:08 Chloride 88 mmol/L (98-107) L 04/15/22 14:08 Carbon Dioxide 24 mmol/L (22-29) 04/15/22 14:08 Anion Gap 22.2 (5-19) H 04/15/22 14:08 BUN 21 mg/dL (8-23) 04/15/22 14:08 Creatinine 1.0 mg/dL (0.5-0.9) H 04/15/22 14:08 GFR Calculation 55.6 mL/min (90-130) L 04/15/22 14:08 Glucose 137 mg/dL (65-115) H 04/15/22 14:08 Calculated Osmolality 273 mOsm/kg (285-295) L 04/15/22 14:08 Calcium 9.6 mg/dL (8.5-10.5) 04/15/22 14:08 Total Bilirubin 0.6 mg/dL (0.15-1.2) 04/15/22 14:08 AST 52 U/L (0-32) H 04/15/22 14:08 ALT 57 U/L (0-33) H 04/15/22 14:08 Alkaline Phosphatase 93 IU/L (35-105) 04/15/22 14:08 NT-Pro-B Natriuret Pep 22248 pg/mL (0-125) H 04/15/22 14:08 Total Protein 7.1 g/dL (6.6-8.7) 04/15/22 14:08 Albumin 4.1 g/dL (3.5-5.2) 04/15/22 14:08 Globulin 3.0 g/dL (1.3-4.6) 04/15/22 14:08 Discharge Plan Discharge Patient Disposition: Admitted As Inpatient Clinical Impression: Congestive heart failure Condition: Stable Prescriptions: No Action atorvastatin 80 mg tablet 80 mg PO DAILY aspirin 325 mg Tablet 325 mg PO DAILY cascara sagrada 325 mg Tablet 650 mg PO BEDTIME Ferrex 150 150 mg iron capsule 150 mg PO .MWF omeprazole 40 mg capsule,delayed release(DR/EC) 40 mg PO BID liothyronine 5 mcg tablet 5 mcg PO DAILY spironolactone 25 mg tablet 25 mg PO DAILY Synthroid 100 mcg tablet 100 mcg PO DAILY alprazolam 0.25 mg tablet 0.25 mg PO Q4H PRN (Reason: Anxiety) Chromium-GTF 200 mcg Tablet 200 mcg PO DAILY budesonide 0.5 mg/2 mL suspension for nebulization 0.5 mg inhalation BID PRN (Reason: Shortness Of Breath) magnesium 250 mg Tablet 250 mg PO DAILY furosemide 20 mg tablet 40 mg PO BID metoprolol succinate 25 mg tablet extended release 24 hr 12.5 mg PO DAILY albuterol sulfate 90 mcg/actuation HFA aerosol inhaler 2 puff INHALATION QID PRN (Reason: shortness of breath) buspirone 15 mg tablet 15 mg PO BID melatonin 5 mg Tablet 10 mg PO BEDTIME Vitamin D3 125 mcg (5,000 unit) Tablet 250 mcg PO DAILY Spiriva Respimat 2.5 mcg/actuation mist 1 inh INHALATION DAILY Eliquis 5 mg tablet 5 mg PO BID potassium chloride 20 mEq tablet extended release 20 meq PO DAILY Coding Level of Care Code ED Payroll Officer for Kat Fwd Exam Detailed
[2022-04-15 14:41] LABS: Alanine Aminotransferase 57 U/L (0-33); Albumin Level 4.1 g/dL (3.5-5.2); Alkaline Phosphatase 93 IU/L (35-105); Anion Gap 22.2 (5-19); Aspartate Amino Transferase 52 U/L (0-32); Blood Urea Nitrogen 21 mg/dL (8-23); Calcium 9.6 mg/dL (8.5-10.5); Carbon Dioxide 24 mmol/L (22-29); Chloride 88 mmol/L (98-107); Glomerular Filtration Rate 55.6 mL/min (90-130); Glucose 137 mg/dL (65-115); Osmolality Calculated 273 mOsm/kg (285-295); Potassium 5.2 mmol/L (3.5-5.1); Sodium 129 mmol/L (136-145); Total Bilirubin 0.6 mg/dL (0.15-1.2); Total Protein 7.1 g/dL (6.6-8.7)
[2022-04-15 15:07] LABS: NT Pro B Type Natriuretic Pept 30761 pg/mL (0-125)
[2022-04-15] MEDS: FUROsemide 10 mg/mL SDV 4mL 40 MG IVP (15:10)
--- NOTE | 2022-04-15 17:15 | USCV_ITS ---
Jessica Larkin Age: 66 Gender: F : 1955 Exam Date: 04/15/2022 18:02 Ordering Phys: Cory Ricks DO Technologist: Ervin Lew Exam Location: [facility] [place] Indication: exacervbation congestive heart failure BP: 120 / 84 HR: 110 Rhythm: Sinus Technical Quality: Adequate MEASUREMENTS (Male / Female) Normal Values 2D ECHO LV Diastolic Diameter PLAX 5.0 cm 4.2 - 5.9 / 3.9 - 5.3 cm LV Systolic Diameter PLAX 5.0 cm IVS Diastolic Thickness 1.3 cm 0.6 - 1.0 / 0.6 - 0.9 cm IVS Systolic Thickness 1.3 cm LVPW Diastolic Thickness 1.8 cm 0.6 - 1.0 / 0.6 - 0.9 cm LVPW Systolic Thickness 1.6 cm LVOT Diameter 2.0 cm LV Ejection Fraction 2D Teich 2.2 % LV Ejection Fraction MOD 2C 27.4 % LV Ejection Fraction 2C AL 26.7 % LA Diameter 3.6 cm LA Width 5.8 cm LA Height 5.2 cm RA Width 4.8 cm RA Height 4.0 cm Aorta at Sinotubular Diameter 2.4 cm IVC Diameter 2.0 cm M-MODE Aortic Annulus Diameter 3.2 cm LA Ao Ratio MM 1.3 MV E Point Septal Separation 1.8 cm DOPPLER AV Peak Velocity 115.5 cm/s LVOT Peak Velocity 73.0 cm/s AV Area Cont Eq vti 1.8 cm squared AV Area Cont Eq pk 1.9 cm squared MV Area PHT 4.8 cm squared Mitral E to A Ratio 4.5 MV E' Velocity 57.0 cm/s Mitral E to MV E' Ratio 14.6 Mitral E to LV E' Lateral Ratio 10.4 Mitral E to LV E' Septal Ratio 24.6 TR Peak Velocity 327.8 cm/s TR Peak Gradient 43.0 mmHg TR Mean Velocity 226.3 cm/s TR Mean Gradient 23.6 mmHg TR Velocity Time Integral 96.2 cm Right Atrial Pressure 5.0 mmHg Pulmonary Artery Systolic Pressu 48.0 mmHg PV Peak Velocity 129.0 cm/s FINDINGS Left Ventricle Left ventricle is mildly dilated. LV systolic function is severely reduced with EF of 20-25%. Severe global hypokinesis. Right Ventricle Not well visualized Right Atrium Not well visualized Left Atrium Left atrium is dilated Mitral Valve Mitral annuloplasty ring is seen. Mild mitral regurgitation Aortic Valve Grossly normal. No significant stenosis or regurgitation Tricuspid Valve Mild to moderate tricuspid regurgitation. RVSP is 45-50mmHg. This is consistent with moderate pulmonary hypertension Pulmonic Valve Not well visualized Pericardium Grossly normal Aorta Normal in size IVC CONCLUSIONS Technically limited quality echocardiogram because of poor ultrasonic windows. LV systolic function is severely reduced with EF of 20 to 25%. Severe global hypokinesis. Left atrial enlargement. Mitral annuloplasty ring is seen. Mild mitral regurgitation. Mild to moderate tricuspid regurgitation. Moderate pulmonary hypertension. Compared to prior echocardiogram from 02/09/2022, patient's LV systolic function has mildly decreased from 30% to 25% now and patient now has mitral annuloplasty ring Messi Torres MD (Electronically Signed) Final Date: 15 April 2022 21:32 S
[2022-04-15 17:53] LABS: Troponin(5th) Baseline 59 ng/L (0-10)
--- NOTE | 2022-04-15 18:27 | CTR_ITS ---
PROCEDURE INFORMATION: Exam: CT Chest Without Contrast; Diagnostic Exam date and time: 04/15/2022 7:17 PM Age: 66 years old Clinical indication: Shortness of breath; Prior surgery; Surgery type: Cabg; Additional info: Chf, post cabg TECHNIQUE: Imaging protocol: Diagnostic computed tomography of the chest without contrast. Radiation optimization: All CT scans at this facility use at least one of these dose optimization techniques: automated exposure control; mA and/or kV adjustment per patient size (includes targeted exams where dose is matched to clinical indication); or iterative reconstruction. COMPARISON: CR XR chest 1V portable [id number] 04/15/2022 2:18 PM RADIATION DOSE METRICS: Total DLP (mGy-cm): 401.79 FINDINGS: Lungs: Multiple ill-defined non round patchy ground-glass opacities are noted bilaterally, mostly in the upper lobes, nonspecific and may represent multifocal pneumonias or edema or other non infectious process. Small consolidations adjacent to the pleural effusions, suggesting compressive atelectasis versus developing pneumonia and follow-up should be obtained. Next item no pneumothorax. Minimal smooth pulmonary septal thickening, nonspecific but may represent interstitial pulmonary edema. Pleural spaces: Small bilateral pleural effusions. Heart: Moderate 4 chamber cardiomegaly with coronary calcification. No obvious pericardial effusion. Extensive coronary calcification. Sternotomy wires and CABG clips. Slightly distended intrahepatic IVC and central hepatic veins suggesting right cardiac/tricuspid valve dysfunction or passive congestion. Lymph nodes: Enlarged inferior right paratracheal lymph node measuring 2.1 cm short axis. Increased number of borderline sized and nonenlarged mediastinal lymph nodes are also noted. Hilar lynne/soft tissue assessment is limited due to lack of contrast however. Vasculature: Mild dilatation of main pulmonary artery at 3.3 cm. No aortic aneurysm. Ascending aorta measures 3.5 cm. There is suggestion of vascular redistribution suggesting element of vascular congestion. Spleen: Calcified splenic granulomas. Intraperitoneal space: Trace perihepatic ascites. Bones/joints: See Heart finding. Soft tissues: See Lymph nodes finding. CT/CT chest wo con [id number] IMPRESSION: 1. Cardiomegaly with vascular congestion and mild interstitial pulmonary edema. Slightly dilated IVC/hepatic veins as described above. 2. Small bilateral pleural effusions with adjacent consolidations suggesting compressive atelectasis versus developing pneumonia. Mild smooth pulmonary septal thickening and ill-defined patchy non round ground-glass opacities are also present. See discussion above. 3. Mild dilatation of main pulmonary artery. 4. Coronary calcification. 5. Nonspecific mild mediastinal adenopathy. Considerations include inflammatory disease, sarcoidosis or other reactive infectious adenopathy. Neoplastic disease cannot be excluded. Comparison prior exam and follow-up exam should be obtained. 6. Trace perihepatic ascites.
--- NOTE | 2022-04-15 18:27 | USR_ITS ---
PROCEDURE INFORMATION: Exam: US Duplex Right Lower Extremity Veins, Limited Exam date and time: 04/15/2022 8:39 PM Age: 66 years old Clinical indication: Edema, localized; Lower extremity, bilateral; Additional info: R/O dvt TECHNIQUE: Imaging protocol: Real-time Duplex ultrasound of the Right Lower Extremity with 2-D veras scale, color Doppler flow and spectral waveform analysis with image documentation. Limited exam was focused on the right lower extremity veins. COMPARISON: No relevant prior studies available. FINDINGS: Right deep veins: Unremarkable. The common femoral, femoral, proximal profunda femoral and popliteal veins are patent without thrombus. Normal Doppler waveforms. Normal compressibility and/or augmentation response. Right superficial veins: Unremarkable. Saphenofemoral junction is patent without thrombus. Soft tissues: Subcutaneous soft tissue edema is present.. Other findings: Multiple static views and several recorded video series were submitted. Initially all images were label left-sided. US Tech: Ervin Lew. Phone discussion was performed with the on-site technologist at 10:29 p.m. Eastern time. The technologist confirmed that the examination was bilateral lower extremities with no evidence of DVT on either side. Some of the provided images initially were mislabeled. He was asked to correct the image labeling. US/[place] [id number] IMPRESSION: No evidence of right lower extremity DVT. See discussion above. (report and exam images in conjunction with the left-sided exam.)
--- NOTE | 2022-04-15 18:31 | PM.HP ---
Providers/Chief Complaint Admitting Physician: Tyrone Cuello MD Chief Complaint: SOB History of Present Illness Jessica Larkin is a 66-year-old female patient with past medical history of hypertension, hypothyroidism, former smoker who was transferred from our hospital in January 2022 when she was found to have left main and severe triple-vessel disease along with severe MR.? She was transferred out of [facility] to [facility] for CABG and MVR.? Patient brought discharge notes from her hospital stay.? She had CABG x3 and mitral valve repair by Dr. Santos on 02/16/2022.? She developed atrial fibrillation postoperatively and was started on IV amiodarone which was later changed to oral amiodarone.? She was discharged with a LifeVest.? Of note she had a KHUSHBOO performed on 02/16/2022 intraoperatively, which showed a PFO with zxch-co-prcuv shunt. On review of chart it seems patient's body weight has been increasing since last 1 month and she has put on at least 35 to 40 pounds of weight. Her dose of Lasix has been going up and down. As per the patient only recent changes to the medication is that she was started on oral iron supplementation. Patient states she has been having difficulty in passing urination because of history of bladder prolapse. States urine output has been decreasing for last few days. For last 1 week shortness of breath has been getting worse and currently today she is not even able to walk around without her walker as she is feeling got out of breath on taking few steps. She is been sitting up in recliner and sleeping in that as well. Denies any chest pain, dysuria, diarrhea, fever, sick contacts. Blood work in the ER was consistent with sodium of 129, potassium of 5.2, creatinine of 1, AST/ALT of 52/57, BNP of more than 30,000 On review of records it seems patient's heart rate on LifeVest has been running more than 100 for last 1 month. Review of Systems General: Reports: 10 or more systems reviewed and unremarkable except in HPI and below Const: Denies: fever(s), chills, body aches, change in appetite, change in weight, malaise, night sweats, diaphoresis, change in sleep pattern, daytime sleepiness or snoring Eyes: Denies: change in vision, blurry vision, photophobia, eye discomfort or eye discharge ENMT: Denies: throat pain, enlarged tonsils, hoarseness, mouth pain, oral sores, dry mouth, tinnitus, nasal congestion or post nasal drip Card: Denies: chest pain, palpitations, irregular heart rhythm, edema, swelling of feet/ankles, lightheadedness, syncope, pre-syncope, dyspnea on exertion, orthopnea, leg pain with exertion or acrocyanosis Resp: Denies: dyspnea, productive cough, non-productive cough, wheezing, stridor, pain on inspiration, change in phlegm color, hemoptysis or chest congestion GI: Denies: abdominal pain, nausea, vomiting, hematemesis, coffee ground emesis, dysphagia, heartburn, diarrhea, constipation, bloating, GI cramping, change in bowel habits, pain on defecation, hematochezia or melena : Denies: flank pain, dysuria, urinary frequency, urinary urgency, urinary hesitancy, nocturia or hematuria Musc: Denies: neck pain, back pain, extremity pain, joint pain, joint swelling, joint redness, joint stiffness or limited range of motion Neuro: Denies: headache(s), numbness in extremities, weakness in extremities, sensory changes, lack of coordination, difficulty walking, frequent falls, dizziness, vertigo, confusion, Slurred speech present, difficulty communicating thoughts or seizure-like activity Psych: Denies: anxiety, depression, mood swings, panic attacks, hopelessness or irritability Endo: Denies: polyuria, polydipsia, tired all the time, cold intolerance, excessive sweating, flushing or heat intolerance All/Lymph: Denies: easy bruising or easy bleeding All/Imm: Denies: tongue swelling, facial swelling or acute wheezing Medications/Allergies Home Medications Medication Instructions Recorded Confirmed Last Taken Type albuterol sulfate 90 mcg/actuation 2 puff inhalation QID PRN 04/15/22 04/15/22 Unknown History aerosol inhaler shortness of breath alprazolam 0.25 mg tablet 0.25 mg PO Q4H PRN Anxiety 04/15/22 04/15/22 04/15/22 History apixaban 5 mg tablet (Eliquis) 5 mg PO BID 04/15/22 04/15/22 04/15/22 History aspirin 325 mg tablet 325 mg PO DAILY 04/15/22 04/15/22 04/14/22 History atorvastatin 80 mg tablet 80 mg PO DAILY 04/15/22 04/15/22 04/14/22 History budesonide 0.5 mg/2 mL suspension 0.5 mg inhalation BID PRN 04/15/22 04/15/22 Unknown History for nebulization Shortness Of Breath buspirone 15 mg tablet 15 mg PO BID 04/15/22 04/15/22 04/15/22 History cascara sagrada 325 mg tablet 650 mg PO BEDTIME 04/15/22 04/15/22 04/14/22 History cholecalciferol (vitamin D3) 125 250 mcg PO DAILY 04/15/22 04/15/22 04/14/22 History mcg (5,000 unit) tablet (Vitamin D3) chromium 200 mcg tablet 200 mcg PO DAILY 04/15/22 04/15/22 04/14/22 History furosemide 20 mg tablet 40 mg PO BID 04/15/22 04/15/22 04/15/22 History levothyroxine 100 mcg tablet 100 mcg PO DAILY 04/15/22 04/15/22 04/15/22 History (Synthroid) liothyronine 5 mcg tablet 5 mcg PO DAILY 04/15/22 04/15/22 04/15/22 History magnesium 250 mg tablet 250 mg PO DAILY 04/15/22 04/15/22 04/14/22 History melatonin 5 mg tablet 10 mg PO BEDTIME 04/15/22 04/15/22 04/14/22 History metoprolol succinate 25 mg 12.5 mg PO DAILY 04/15/22 04/15/22 04/14/22 History tablet,extended release 24 hr omeprazole 40 mg capsule,delayed 40 mg PO BID 04/15/22 04/15/22 04/15/22 History release polysaccharide iron complex 150 mg 150 mg PO .MWF 04/15/22 04/15/22 04/13/22 History iron capsule (Ferrex) potassium chloride 20 mEq 20 meq PO DAILY 04/15/22 04/15/22 04/15/22 History tablet,extended release spironolactone 25 mg tablet 25 mg PO DAILY 04/15/22 04/15/22 04/15/22 History tiotropium bromide 2.5 1 inh inhalation DAILY 04/15/22 04/15/22 Unknown History mcg/actuation mist for inhalation (Spiriva Respimat) Allergies Allergy/AdvReac Type Severity Reaction Status Date / Time levofloxacin [From Levaquin] Allergy ALGY-Rash Verified 04/15/22 13:39 tramadol Allergy ADR-Shakine Verified 04/15/22 13:39 ss PFSH Acute PFSH: Medical History (Updated 04/15/22 @ 18:43 by Tyrone Cuello MD) CAD (coronary artery disease) Hyperlipidemia Hypertension Hypothyroidism Ischemic cardiomyopathy Systolic congestive heart failure, NYHA class 4 Surgical History (Updated 04/15/22 @ 18:42 by Tyrone Cuello MD) H/O mitral valve repair Status post aorto-coronary artery bypass graft Social History (Updated 04/15/22 @ 18:43 by Tyrone Cuello MD) Smoking and tobacco status: current every day smoker Alcohol intake: never Substance/Drug Use: never Caregiver/support person: Yes Lives independently: Yes Household members: family Housing: House Vitals/I&O/Wt Last Vital Signs Temp 97.5 F L 04/15/22 13:39 Pulse 111 H 04/15/22 17:15 Resp 21 H 04/15/22 17:15 BP 120/84 04/15/22 17:15 Pulse Ox 97 04/15/22 17:15 O2 Del Method 04/15/22 17:15 O2 Flow Rate 2 04/15/22 15:11 Weight last 48 hrs Weight 75.296 kg Physical Exam Narrative: EXAM NARRATIVE: General: No acute distress, AO x3, NC oxygen supplementation, sitting up in bed HEENT: PERRLA, pupils bilaterally equal and reactive Chest: Bilateral normal sounds, fine crackles present up to mid lung bilaterally, good equal air entry CVS: S1-S2 regular, no murmurs, no tachycardia, no gallops, no rubs Abdomen: Soft, nontender, no organomegaly, bowel sounds present, morbidly obese Neuro: No focal deficits, no facial deformity, AO x3, power 5/5 in all limbs Extremities: Bilateral 3+ pitting edema up to upper thigh Data : 04/15/22 14:08 04/15/22 14:08 A&P Assessment and plan (1) Systolic congestive heart failure, NYHA class 4: Status: Acute (2) Ischemic cardiomyopathy: Status: Acute (3) Hyponatremia: Status: Acute (4) Hyperkalemia: Status: Acute (5) Transaminitis: Status: Acute (6) CAD (coronary artery disease): Status: Acute (7) Hypothyroidism: Status: Acute (8) Hypertension: Status: Acute (9) Hyperlipidemia: Status: Acute (10) Uses LifeVest defibrillator: Status: Acute (11) Atrial fibrillation: Status: Acute (12) Iron deficiency anemia: Status: Acute Plan 66-year-old female with recent history of ischemic cardiomyopathy, systolic heart failure, CAD, post CABG and mitral valve repair presents to the ER today because of worsening shortness of breath. Systolic congestive heart failure: Acute on chronic: NYHA class IV. Stat echocardiogram to rule out mitral valve pathology. IV Lasix 80 mg twice daily. Strict input per charting, daily weights. Fluid restriction up to 1500 cc. Ayoub catheterization. Patient is not on an FESTUS inhibitor. Hold off on spironolactone given hyperkalemia currently. Increase dose of metoprolol succinate to [address] chest without contrast, lower limb Dopplers. Goal blood pressure less than 140/90 mmHg Hyponatremia: Most likely hypervolemic hyponatremia. IV Lasix as above. Monitor sodium levels daily. Check urine lites, urine creatinine, urine eosinophils. Hyperkalemia: Most likely secondary to concomitant use of spironolactone at home along with potassium supplementation. Hold off on both spironolactone and potassium supplementation. Lasix as above. Monitor BMP daily. Telemetry. Iron deficiency anemia: Check iron panel, vitamin B12, folate level. IV iron supplementation 20 mg for next 5 days to cover 1 g. Continue the chronic medications including Eliquis, aspirin, statin, BuSpar, Protonix. Check TSH, urinalysis, lipid panel, A1c, D-dimer, CRP procalcitonin, MRSA swab. Analgesia: Tylenol as needed Glycemic control: Not needed Nutrition: Regular diet CODE STATUS: Full code PUD prophylaxis: Protonix DVT prophylaxis: Eliquis will suffice for DVT prophylaxis Admit to CSU This documentation was created by MyRoll supervisor airplane flight attendant software. Every effort was made to ensure accuracy of supervisor airplane flight attendant. Any obvious errors or omissions should be clarified with the author of the document. Attestations Medical Necessity Statement*: Admission for more than 2 midnights for management of acute on chronic systolic congestive heart failure in a patient with recent CABG and mitral valve repair Time Spent in Patient Care: Greater than 35 minutes Coding Level of Care Code Acute Foot Orthopedist for Liseg Fwd Diagnoses Systolic congestive heart failure, NYHA class 4 I50.20 Ischemic cardiomyopathy I25.5 Hyponatremia E87.1 Hyperkalemia E87.5 Transaminitis R74.01 CAD (coronary artery disease) I25.10 Hypothyroidism E03.9 Hypertension I10 Hyperlipidemia E78.5 Uses LifeVest defibrillator Z95.810 Atrial fibrillation I48.91 Iron deficiency anemia D50.9
--- NOTE | 2022-04-15 19:03 | ECG_ITS ---
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 Measurements Intervals [place] Rate: 110 P: 59 IA: 140 QRS: 2 QRSD: 140 T: 138 QT: 372 QTc: 504 Interpretive Statements SINUS TACHYCARDIA POSSIBLE LEFT ATRIAL ENLARGEMENT [-0.1mV P WAVE IN V1/V2] LEFT BUNDLE BRANCH BLOCK [120+ ms QRS DURATION, 80+ ms Q/S IN V1/V2, 85+ ms R IN I/aVL/V5/V6] Compared to ECG 04/15/2022 13:47:33 Atrial flutter no longer present Electronically Signed On 04-16-2022 17:47:04 CDT by Msesi Torres M.D. [id number]
[2022-04-15 19:12] LABS: Add Urine Microscopic? NO; Charge for UA Resulting for Rev
[2022-04-15 19:23] LABS: Bilirubin Urine Neg (Negative); Blood Urine Neg (Negative); Glucose Urine UA Norm (Normal); Ketones Urine Negative (Negative); Leukocyte Esterase Urine Negative (Negative); Nitrate Urine Negative (Negative); Protein Urine Neg (Negative); Urine Appearance Clear (CLEAR); Urine Color Yellow (Yellow); Urobilinogen Urine Neg (Negative); pH Urine 5 (5-7)
[2022-04-15] MEDS: FUROsemide 10 mg/mL SDV 10mL 80 MG IVP (19:24)
[2022-04-15 19:25] LABS: Potassium, Radom Urine 40 mmol/L; Urine Creatinine 35 mg/dL (28-217); Urine Random Chloride 75 mmol/L; Urine Random Sodium 50 mmol/L
[2022-04-15] MEDS: metoprolol succinate ER (24 HR) 25 mg Tablet PO (19:35)
[2022-04-15] MEDS: ALPRAZolam 0.5 mg Tablet 0.25 MG PO ×2 (19:42→23:29)
[2022-04-15 19:50] LABS: Troponin 5 2HR 46.94 ng/L (0-10)
[2022-04-15 19:58] LABS: Procalcitonin 0.09 ng/mL (0-0.5)
--- NOTE | 2022-04-15 20:00 | PC.NURSE ---
received report. 66 yo female presented with sob, increasing over last 2 weeks. Has to sleep in upright position in recliner. Pitting edema to lower extremities 3+. She had CABG x 3 performed 02/16/22 with Mitral Valve replacement. KHUSHBOO revealed PFO with L to R shunt. Her EF 10%. She has life vest in place. She developed A fib after heart surgery. Currently on Amiodarone PO. BNP 41730+, initial trop 59, TSH 21.41. Has received a total of 120 mg Lasix IV. Has wolfe cath to bedside drain. She is on O2 @ 4L. She continues to have orthopnea but states she does feel better than when she arrived. Lungs fine crackles throughout, Abd soft non tender. 3+ pitting edema to lower extremities.
[2022-04-15] MEDS: iron sucrose 200 MG in sodium chloride 0.9% (100 ml) 100 ML 220 MG IV (20:01)
[2022-04-15 20:03] LABS: D Dimer 3.89 ug/mIFEU (0-0.59)
[2022-04-15 20:06] LABS: C Reactive Protein 18.6 mg/L (0.0-4.9); Thyroid Stimulating Hormone 21.41 uIU/mL (0.27-4.20); Vitamin B12 951 pg/mL (232-1245)
[2022-04-15 20:17] LABS: Iron 18 ug/dL (37-145); Percent Saturation 4.3 % (20-50); Total Iron Binding Capacity 417 mcg/dl; Unsaturated Iron Binding 399 ug/dL (112-347)
--- NOTE | 2022-04-15 23:08 | ECG_ITS ---
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 Measurements Intervals [place] Rate: 110 P: 61 WI: 152 QRS: -3 QRSD: 143 T: 144 QT: 379 QTc: 513 Interpretive Statements SINUS TACHYCARDIA WITH OCCASIONAL SUPRAVENTRICULAR PREMATURE COMPLEXES POSSIBLE LEFT ATRIAL ENLARGEMENT [-0.1mV P WAVE IN V1/V2] LEFT BUNDLE BRANCH BLOCK [120+ ms QRS DURATION, 80+ ms Q/S IN V1/V2, 85+ ms R IN I/aVL/V5/V6] Compared to ECG 04/15/2022 19:03:11 No significant changes Electronically Signed On 04-16-2022 17:46:51 CDT by Messi Torres M.D. [id number]
[2022-04-15 23:39] LABS: Troponin 5 6HR 63.21 ng/L (0-10)
[2022-04-15 23:40] LABS: Eosinophil Urine No Eosinophils Seen; Urine Eosinophil Count 0 (0-0)
[2022-04-15 23:43] LABS: Troponin 5 6HR Delta 4.21 ng/L (0-12)
[2022-04-16] VITALS (32 sets, daily range): BP systolic 97–120; BP diastolic 64–91; PULSE 99–108; RESP 15–30; TEMP 36.6–36.7; O2SAT 92–99; BMI 26.9
[2022-04-16] MEDS: ALPRAZolam 0.5 mg Tablet 0.25 MG PO ×4 (03:40→20:31)
[2022-04-16 03:43] LABS: Basophils % 0.3 %; Eosinophils # 0.1 10^3/uL (0.0-0.8); Eosinophils % 0.9 %; Hematocrit 35.4 % (37.0-47.0); Hemoglobin 10.3 g/dL (11.5-15.3); Lymphocytes # 0.7 10^3/uL (0.8-4.8); Lymphocytes % 6.4 %; Mean Corpuscular HGB Conc 29.1 g/dL (30.0-36.0); Mean Corpuscular Hemoglobin 24.8 pg (28.0-34.0); Mean Corpuscular Volume 85.1 fl (81-99); Mean Platelet Volume 9.6 fL (7.4-10.4); Monocytes # 0.8 10^3/uL (0.2-0.9); Monocytes % 7.6 %; Neutrophils # 8.57 10^3/uL (1.8-7.7); Neutrophils % 84.1 %; Nucleated Red Blood Cells # 0.2 /100WBC; Nucleated Red Blood Cells % 1.9 %; Platelet Count 527 10^3/cmm (130-400); Red Blood Count 4.16 10^6/uL (4.1-5.3); Red Cell Distribution Width 17.2 % (12.1-15.1); White Blood Count 10.2 10^3/uL (4.0-10.0)
[2022-04-16 04:01] LABS: Alanine Aminotransferase 82 U/L (0-33); Albumin Level 4.2 g/dL (3.5-5.2); Alkaline Phosphatase 92 IU/L (35-105); Anion Gap 20.6 (5-19); Aspartate Amino Transferase 73 U/L (0-32); Blood Urea Nitrogen 21 mg/dL (8-23); Calcium 9.4 mg/dL (8.5-10.5); Carbon Dioxide 24 mmol/L (22-29); Chloride 90 mmol/L (98-107); Globulin 2.3 g/dL (1.3-4.6); Glomerular Filtration Rate 62.8 mL/min (90-130); Glucose 135 mg/dL (65-115); Osmolality Calculated 275 mOsm/kg (285-295); Potassium 4.6 mmol/L (3.5-5.1); Sodium 130 mmol/L (136-145); Total Bilirubin 0.4 mg/dL (0.15-1.2); Total Protein 6.5 g/dL (6.6-8.7)
[2022-04-16 04:06] LABS: Chol HDL Ratio 4.19 mg/dL (0.0-4.40); Cholesterol 109 mg/dL (0-200); Estmated Average Glucose 126; HDL Cholesterol 26 mg/dL (60-100); LDL Cholesterol Calculated 61 mg/dL (50-129); Triglycerides 111 mg/dL (0-150); VLDL Cholestrol Calculation 22 mg/dL (0-30)
[2022-04-16 04:13] LABS: Free T4 Free Thyroxine 1.62 ng/dL (0.82-1.77); T3 Free 1.4 PG/ML (2.0-4.4)
[2022-04-16] MEDS: budesonide 0.5 mg/2 mL Neb INHALATION ×2 (08:31→20:01)
[2022-04-16] MEDS: ipratropium-albuterol 3 mL Neb INHALATION ×3 (08:31→20:01)
[2022-04-16] MEDS: BuSPIRONE 10 mg Tablet 15 MG PO ×2 (10:23→17:07)
[2022-04-16] MEDS: pantoprazole DR 40 mg Tablet PO (10:24)
[2022-04-16] MEDS: apixaban 5 mg Tablet PO ×2 (10:24→17:08)
[2022-04-16] MEDS: FUROsemide 10 mg/mL SDV 10mL 80 MG IVP (10:24)
[2022-04-16] MEDS: metoprolol succinate ER (24 HR) 25 mg Tablet PO (10:24)
[2022-04-16] MEDS: docusate sodium 100 mg Capsule PO ×2 (10:24→17:08)
[2022-04-16] MEDS: atorvastatin 40 mg Tablet 80 MG PO (10:24)
[2022-04-16] MEDS: aspirin 325 mg Tablet PO (10:24)
--- NOTE | 2022-04-16 15:28 | P.PN_ITS ---
Subjective Subjective: Pt had CABG in January. Reports sent home with edema. Was on Lasix 20 mg once daily until 1-2 weeks ago and then changed to lasix 40 mg bid. However, pt grew progressively more sob and her edema was in her abdomen. She is very uncomfortable and had a terrible time moving around. She felt weak and t ired. Vitals/I&O/Wt Last Vital Signs Temp 97.5 F L 04/15/22 13:39 Pulse 104 H 04/16/22 15:05 Resp 17 04/16/22 15:05 BP 105/75 04/16/22 15:00 Pulse Ox 93 04/16/22 15:05 O2 Del Method 04/16/22 15:05 O2 Flow Rate 2 04/16/22 15:05 04/16/22 04/16/22 04/16/22 06:59 14:59 22:59 Output Total 800 / 800 Balance -800 / -690 Weight last 48 hrs Weight 75.296 kg Physical Exam Narrative: Patient seen in the ED. She was sitting upright in bed with her daughter at her bedside. She appeared comfortable in no acute distress. Heart: Regular normal S1-S2 without murmurs clicks gallops or rubs Lungs: Diminished breath sounds bilaterally in the bases. A few crackles auscultated around the mid right lung Abdomen: Some mild edema noted in the suprapubic area Extremities patient had 3-4+ pitting edema all the way up to her groin bilaterally Urinary Catheter Management: Ayoub: Cath Placed During This Visit: yes Reason for Continuing Indwelling Catheter: Accurate Measurement of Urinary O utput in Critically Ill Patients Urinary Catheter Date of Insertion: 04/15/22 Urinary Catheter Time of Insertion: 19:07 Data : 04/16/22 03:35 04/16/22 03:35 Micro: Microbiology 04/15/22 20:05 MRSA Culture - Final Nose 04/15/22 18:55 Bacterial Antigens - Final Urine Kidney 04/15/22 18:55 Legionella Urinary Antigen - Final Urine Catheterized 04/15/22 19:35 Blood Culture - Preliminary Blood SPECIMEN COLLECTED 04/15/22 19:33 Blood Culture - Preliminary Blood SPECIMEN COLLECTED A&P Assessment and plan (1) Acute on chronic systolic CHF (congestive heart failure), NYHA class 3: Patient has had twice a day. I will change to Bumex 2 mg twice a day and add albumin prior. Had discussion with patient and daughter that she will need to monitor her weights and increase her diuretics accordingly at home and then updating her doctors frequently. Status: Acute (2) Hypothyroidism (acquired): Patient's TSH revealed patient was suboptimally replaced. She takes both levothyroxine and liothyronine. In order to avoid confusion I stopped the liothyronine and increased levothyroxine to 150 mcg daily. This may be the cause of her fatigue. Status: Acute (3) Iron deficiency anemia: Patient has a history of iron deficiency anemia and was taking iron. I did explain to patient and daughter that its most likely due to the abdominal swelling that her iron is not absorbed. We will hold off on further IV iron. Status: Acute (4) CAD (coronary artery disease): Recently diagnosed patient is on aspirin and atorvastatin. Status: Acute (5) S/P CABG (coronary artery bypass graft): Surgery was in January. Status: Acute (6) Hyperlipidemia: Patient takes atorvastatin 80 mg a day Status: Acute (7) H/O mitral valve repair: January 2022 Status: Acute Plan See above Attestations Medical Necessity Statement*: Patient has severe fluid overload patient will require aggressive diuresis with IV diuretics over the next couple days before she will be stable enough to be on oral. Given her recent CABG and mitral valve repair she is at high risk for further cardiac conditions to happen acutely if not monitored in the hospital. Coding Level of Care Code Acute Casting Sorter for Liseg Fwtammy Diagnoses Acute on chronic systolic CHF (congestive heart failure), NYHA class 3 I50.23 Hypothyroidism (acquired) E03.9 Iron deficiency anemia D50.9 CAD (coronary artery disease) I25.10 S/P CABG (coronary artery bypass graft) Z95.1 Hyperlipidemia E78.5 H/O mitral valve repair Z98.890
[2022-04-16] MEDS: iron sucrose 200 MG in sodium chloride 0.9% (100 ml) 100 ML 220 MG IV (18:01)
[2022-04-16] MEDS: bumetanide 0.25 mg/mL SDV 10 mL 2 MG IVP (18:15)
[2022-04-17] VITALS (13 sets, daily range): BP systolic 100–118; BP diastolic 65–80; PULSE 68–111; RESP 15–18; TEMP 36.3–36.6; O2SAT 89–96
[2022-04-17] MEDS: bumetanide 0.25 mg/mL SDV 10 mL 2 MG IVP ×2 (03:36→17:18)
[2022-04-17] MEDS: ALPRAZolam 0.5 mg Tablet 0.25 MG PO ×5 (03:36→23:08)
[2022-04-17 05:32] LABS: Blood Urea Nitrogen 18 mg/dL (8-23); Calcium 9.3 mg/dL (8.5-10.5); Carbon Dioxide 27 mmol/L (22-29); Chloride 92 mmol/L (98-107); Glucose 130 mg/dL (65-115); Osmolality Calculated 278 mOsm/kg (285-295); Sodium 132 mmol/L (136-145)
--- NOTE | 2022-04-17 07:14 | PC.NURSE ---
Patient and daughter state that patient's lifevest is in their vehicle in the parking lot. Daughter and patient educated that it is recommended patient wear it while in the hospital. Daughter went to car to get it but states that she doesn't know if it is charged and she doesn't have the pilot can router. Patient states please don't make me wear that thing. Daughter states that sometimes patient has to take it off at home because it is uncomfortable for the patient.
[2022-04-17] MEDS: BuSPIRONE 10 mg Tablet 15 MG PO ×3 (08:13→19:41)
[2022-04-17] MEDS: atorvastatin 40 mg Tablet 80 MG PO (08:15)
[2022-04-17] MEDS: aspirin 325 mg Tablet PO (08:15)
[2022-04-17] MEDS: levothyroxine 150 mcg Tablet PO (08:15)
[2022-04-17] MEDS: metoprolol succinate ER (24 HR) 25 mg Tablet PO (08:16)
[2022-04-17] MEDS: docusate sodium 100 mg Capsule PO ×2 (08:16→17:18)
[2022-04-17] MEDS: apixaban 5 mg Tablet PO ×2 (08:22→17:18)
[2022-04-17] MEDS: budesonide 0.5 mg/2 mL Neb INHALATION ×2 (09:30→20:18)
--- NOTE | 2022-04-17 13:36 | PM.PN ---
Subjective Subjective: seen in wheelchair about to take a trip out of the room. She states she feels much better and is happy with her decreased leg swelling. She says she was wobbly when trying to walk to [place]. Vitals/I&O/Wt Last Vital Signs Temp 97.7 F 04/17/22 07:59 Pulse 104 H 04/17/22 09:35 Resp 17 04/17/22 09:30 BP 117/80 04/17/22 07:59 Pulse Ox 93 04/17/22 09:30 O2 Del Method 04/17/22 09:30 O2 Flow Rate 2 04/17/22 09:30 04/16/22 04/17/22 04/17/22 22:59 06:59 14:59 Intake Total 650 / 650 100 / 750 460 / 460 Output Total 750 / 750 1600 / 2350 Balance -100 / -100 -1500 / -1600 460 / 460 Weight last 48 hrs Weight 76.839 kg Weight 75.841 kg Weight 75.296 kg Physical Exam Narrative: Seen sitting in wheelchair with daughter. She appeared much more comfortable in no acute distress. Heart: Regular normal S1-S2 without murmurs clicks gallops or rubs Lungs: Diminished breath sounds bilaterally in the bases and half way up right side. A few crackles auscultated around the mid right lung Abdomen: Soft nontender nondistended positive bowel sounds no hepatosplenomegaly Extremities patient had 3+ pitting edema all the way up to her groin bilaterally-overall diminished. -1.6 L yesterday, total of -1.8. Urinary Catheter Management: Ayoub: Cath Placed During This Visit: yes Reason for Continuing Indwelling Catheter: Other Urinary Catheter Date of Insertion: 04/15/22 Urinary Catheter Time of Insertion: 19:07 Data : 04/16/22 03:35 04/17/22 04:18 Micro: Microbiology 04/15/22 19:35 Blood Culture - Preliminary Blood NEGATIVE TO DATE 04/15/22 19:33 Blood Culture - Preliminary Blood NEGATIVE TO DATE 04/15/22 20:05 MRSA Culture - Final Nose A&P Assessment and plan (1) Acute on chronic systolic CHF (congestive heart failure), NYHA class 3: Responding well to change to bumex with addition of albumin prior. Will need chf teaching. Status: Acute (2) Hypothyroidism (acquired): Patient's TSH revealed patient was suboptimally replaced. She takes both levothyroxine and liothyronine. In order to avoid confusion I stopped the liothyronine and increased levothyroxine to 150 mcg daily. This may be the cause of her fatigue. Status: Acute (3) Iron deficiency anemia: Patient has a history of iron deficiency anemia and was taking iron. I did explain to patient and daughter that its most likely due to the abdominal swelling that her iron is not absorbed. We will hold off on further IV iron due to decreasing amount of intake. Status: Acute (4) CAD (coronary artery disease): Recently diagnosed patient is on aspirin and atorvastatin. Status: Acute (5) S/P CABG (coronary artery bypass graft): Surgery was in January. Status: Acute (6) Hyperlipidemia: Patient takes atorvastatin 80 mg a day Status: Acute (7) H/O mitral valve repair: January 2022 Status: Acute Plan See above Attestations Medical Necessity Statement*: Patient has severe fluid overload patient will require aggressive diuresis with IV diuretics over the next couple days before she will be stable enough to be on oral. Given her recent CABG and mitral valve repair she is at high risk for further cardiac conditions to happen acutely if not monitored in the hospital. Coding Level of Care Code Acute Advertising Director for Kat Butterfield Diagnoses Acute on chronic systolic CHF (congestive heart failure), NYHA class 3 I50.23 Hypothyroidism (acquired) E03.9 Iron deficiency anemia D50.9 CAD (coronary artery disease) I25.10 S/P CABG (coronary artery bypass graft) Z95.1 Hyperlipidemia E78.5 H/O mitral valve repair Z98.890
--- NOTE | 2022-04-17 19:21 | PC.NURSE ---
i reported high pulse 110 to nurse
[2022-04-18] VITALS (11 sets, daily range): BP systolic 93–115; BP diastolic 66–78; PULSE 96–110; RESP 16–18; TEMP 36.4–36.6; O2SAT 75–98
--- NOTE | 2022-04-18 00:50 | PC.NURSE ---
i reported high pulse 101 to nurse
[2022-04-18] MEDS: ALPRAZolam 0.5 mg Tablet 0.25 MG PO ×3 (02:43→14:49)
[2022-04-18 04:57] LABS: Anion Gap 16.5 (5-19); Blood Urea Nitrogen 14 mg/dL (8-23); Calcium 9.5 mg/dL (8.5-10.5); Carbon Dioxide 29 mmol/L (22-29); Chloride 92 mmol/L (98-107); Glucose 143 mg/dL (65-115); Osmolality Calculated 281 mOsm/kg (285-295); Potassium 3.5 mmol/L (3.5-5.1); Sodium 134 mmol/L (136-145)
[2022-04-18] MEDS: bumetanide 0.25 mg/mL SDV 10 mL 2 MG IVP ×2 (05:49→20:33)
[2022-04-18] MEDS: budesonide 0.5 mg/2 mL Neb INHALATION (07:21)
[2022-04-18] MEDS: atorvastatin 40 mg Tablet 80 MG PO (08:25)
[2022-04-18] MEDS: metoprolol succinate ER (24 HR) 25 mg Tablet PO (08:25)
[2022-04-18] MEDS: apixaban 5 mg Tablet PO ×2 (08:25→17:04)
[2022-04-18] MEDS: docusate sodium 100 mg Capsule PO ×2 (08:25→17:04)
[2022-04-18] MEDS: aspirin 325 mg Tablet PO (08:25)
[2022-04-18] MEDS: levothyroxine 150 mcg Tablet PO (08:26)
[2022-04-18] MEDS: BuSPIRONE 10 mg Tablet 15 MG PO ×3 (08:26→20:13)
[2022-04-18] MEDS: potassium chloride ER 20 mEq Tablet 40 MEQ PO ×3 (09:09→20:23)
--- NOTE | 2022-04-18 11:44 | PC.CHAP ---
Pastoral Care Encounter/Spiritual Assessment Type of Contact [] Declined die cast supervisor visit [] Patient/Family/Request visit [] Outpatient visit [] Follow-up visit [] Physician referral [] Code/Alert [x] Routine visit [] Staff referral [] Actively dying [] Patient sleeping [] Family support [] [] Out of room [] Palliative care [] [x] Receiving care in room [] Pre-surgical visit [] Trauma [] Long length of stay [] ICU visit [] Other: Relational/Emotional Strength [] Patient feels connected with others/family/visitors/staff [] Distress [] Loneliness/isolation [] Abandonment Spirituality of Patient [] Person of Nayeli [] Attends Confucianist of their Nayeli [] Believes in Prayer [] Reads Bible or Judaism materials [] There are Spiritual issues to be addressed [place] Interventions [] Prayer [] Active listening [] Non-anxious presence [] Spiritual/emotional support [] Crisis/trauma care [] Spiritual counseling [] Bereavement support [] Provided bereavement packet [] Provided Bible/devotional materials [] Provided toy/stuffed animal, coloring book to patient or family member [] Provided Communion [] Anointing/[place] [] Salvation [] Completed spiritual assessment [] Other: Impact on Illness or Injury [] Angry [] Fearful [] Anxious [] Often cries [] Exhaustion [] Unable to work [] Unable to attend denominational [] Unable to walk/stand [] Unable to read [] Unable to drive [] Unable to eat/drink [] Unable to sleep [] Unable to be with family [] Patient intubated [] Other: Summary Time spent with patient
--- NOTE | 2022-04-18 15:11 | XR_ITS ---
WS: [id number] Portable AP upright chest, 04/18/2022 Clinical Data: SHORTNESS OF BREATH Comparison: Portable chest, 2021. Findings: The pulmonary vascular congestion remains the same. There is no change in cardiomegaly and the bilateral pleural effusions. Midline sternotomy sutures and an artificial valve remain in positio n. Monitor leads are on the chest wall. XR/XR chest 1V portable [id number] Impression: No change in congestive heart failure.
--- NOTE | 2022-04-18 16:22 | PC.RESP ---
RR 22 SATS ARE 94%. PT. SOB BUT STATES SHE IS FINE. HR 110.
--- NOTE | 2022-04-18 17:36 | PM.PN ---
Subjective Subjective: Pt with skinny I first met in ED. She is just as anxious as mom. pt didn't sleep well last night due to her roommate. Vitals/I&O/Wt Last Vital Signs Temp 97.8 F 04/18/22 08:00 Pulse 110 H 04/18/22 12:00 Resp 18 04/18/22 12:00 BP 115/78 04/18/22 12:00 Pulse Ox 95 04/18/22 12:00 O2 Del Method 04/18/22 07:21 O2 Flow Rate 2 04/18/22 07:21 04/18/22 04/18/22 04/18/22 06:59 14:59 22:59 Intake Total 100 / 1140 580 / 580 Output Total 900 / 900 Balance -800 / 240 580 / 580 Weight last 48 hrs Weight 76.657 kg Weight 76.839 kg Physical Exam Narrative: Appears tired today. But remains in good spirits. Heart: Irregularly irregular no loud murmur auscultated Lungs: Diminished throughout bilateral bases crackles about detention up on the right. Abdomen soft nontender no distention?note this is better than previous. Normal bowel sounds Extremities about one third the size they were when they came in there is still 3+ pitting edema up to upper thigh. Urinary Catheter Management: Ayoub: Cath Placed During This Visit: yes Reason for Continuing Indwelling Catheter: Accurate Measurement of Urinary Output in Critically Ill Patients Urinary Catheter Date of Insertion: 04/15/22 Urinary Catheter Time of Insertion: 19:07 Data : 04/16/22 03:35 04/18/22 04:30 A&P Assessment and plan (1) Acute on chronic systolic CHF (congestive heart failure), NYHA class 3: Responding well to change to bumex with addition of albumin prior. Will need chf teaching. might need to add zaroxolyn since not as good of outpt today so far. Will consult cardiology. She has not seen bus or truck garage mechanic yet. Repeat chest x-ray shows no increase in CHF. There are chronic changes that appear to be COPD emphysema related. Perhaps even fibrosis. The right lower lobe effusion appears chronic. Status: Acute (2) Hypothyroidism (acquired): Patient's TSH revealed patient was suboptimally replaced. She takes both levothyroxine and liothyronine. In order to avoid confusion I stopped the liothyronine and increased levothyroxine to 150 mcg daily. This may be the cause of her fatigue. Status: Acute (3) Iron deficiency anemia: Patient has a history of iron deficiency anemia and was taking iron. I did explain to patient and daughter that its most likely due to the abdominal swelling that her iron is not absorbed. We will hold off on further IV iron due to decreasing amount of intake. Status: Acute (4) CAD (coronary artery disease): Recently diagnosed patient is on aspirin and atorvastatin. Status: Acute (5) S/P CABG (coronary artery bypass graft): Surgery was in January. Status: Acute (6) Hyperlipidemia: Patient takes atorvastatin 80 mg a day Status: Acute (7) H/O mitral valve repair: January 2022 Status: Acute Plan Patient has severe anxiety she has been taking Xanax [id number]. I will change her to Ativan 0.5 mg p.o. twice daily during the day and 1 mg p.o. nightly. The nurses will change the patient to a private room so she can get sleep tonight I had a long talk with the patient and daughter about the severity of patient's illness. I that she explained also has at least moderate COPD Daughter wants to know if she will get off oxygen and again I attempted to explain that with both lung and heart problems she may not. Patient is uncomfortable wearing her LifeVest. She states it brings her more anxiety. It she also complains about the plate digging into her. She understands the risks and accepts these Attestations Medical Necessity Statement*: Patient has severe fluid overload patient will require aggressive diuresis with IV diuretics over the next couple days before she will be stable enough to be on oral. Given her recent CABG and mitral valve repair she is at high risk for further cardiac conditions to happen acutely if not monitored in the hospital. 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
[2022-04-18] MEDS: LORazepam 1 mg Tablet PO (20:13)
[2022-04-18] MEDS: albuterol 8 gm MDI 2 PUFF INHALATION (23:20)
[2022-04-19] VITALS (12 sets, daily range): BP systolic 105–129; BP diastolic 69–92; PULSE 98–109; RESP 15–23; TEMP 36.3–37; O2SAT 91–96
[2022-04-19] MEDS: acetaminophen 325 mg Tablet 650 MG PO (00:08)
[2022-04-19 03:44] LABS: Blood Urea Nitrogen 22 mg/dL (8-23); Calcium 10.4 mg/dL (8.5-10.5); Carbon Dioxide 25 mmol/L (22-29); Glomerular Filtration Rate 49.8 mL/min (90-130); Glucose 138 mg/dL (65-115); Magnesium 2.1 mg/dL (1.7-2.3)
[2022-04-19 04:04] LABS: Anion Gap 22.4 (5-19); Chloride 91 mmol/L (98-107); Osmolality Calculated 280 mOsm/kg (285-295); Potassium 6.4 mmol/L (3.5-5.1); Sodium 132 mmol/L (136-145)
[2022-04-19] MEDS: atorvastatin 40 mg Tablet 80 MG PO (08:12)
[2022-04-19] MEDS: apixaban 5 mg Tablet PO ×2 (08:12→17:41)
[2022-04-19] MEDS: metoprolol succinate ER (24 HR) 25 mg Tablet PO (08:12)
[2022-04-19] MEDS: levothyroxine 150 mcg Tablet PO (08:12)
[2022-04-19] MEDS: BuSPIRONE 10 mg Tablet 15 MG PO ×3 (08:12→21:09)
[2022-04-19] MEDS: metOLazone 5 MG Tablet 2.5 MG PO ×2 (08:12→10:38)
[2022-04-19] MEDS: docusate sodium 100 mg Capsule PO ×2 (08:12→17:41)
[2022-04-19] MEDS: aspirin 325 mg Tablet PO (08:12)
--- NOTE | 2022-04-19 09:24 | PC.SOCIAL ---
IMM update IMM Updated with patient and family at bedside. Verbalized an understanding. Copy Pg 2 provided. Initialled, dated, timed, and placed in chart.
[2022-04-19] MEDS: bumetanide 0.25 mg/mL SDV 10 mL 2 MG IVP ×2 (10:09→12:03)
[2022-04-19] MEDS: albuterol 8 gm MDI 2 PUFF INHALATION ×2 (10:52→21:15)
[2022-04-19] MEDS: LORazepam 0.5 mg Tablet PO (15:20)
--- NOTE | 2022-04-19 16:52 | PM.CONSULT ---
Providers/Reason For Consult Consulting Physician/Specialty*: Messi Torres MD/ Cardiology Reason for Consult*: HFrEF Requesting Physician: Dr Myers Attending Physician: George Myers DO History of Present Illness History of Present Illness Jessica Larkin is a 66 year old female with past medical history of CAD s/p recent CABG x3 and mitral valve repair and [facility] in January. She also had postop atrial fibrillation and was put on amiodarone. She was discharged home on LifeVest. Has severely reduced LV systolic function. She had been gaining weight at home and came to the hospital with worsening shortness of breath. Was found to have acute on chronic congestive heart failure. NT proBNP was significantly elevated and was more than 30,000. No significant troponin elevation. Denies chest pain. Review of Systems General: Reports: 10 or more systems reviewed and unremarkable except in HPI and below Const: Denies: fever(s), chills, body aches, change in appetite, change in weight, malaise, night sweats, diaphoresis, change in sleep pattern, daytime sleepiness or snoring Eyes: Denies: change in vision, blurry vision, photophobia, eye discomfort or eye discharge ENMT: Denies: throat pain, enlarged tonsils, hoarseness, mouth pain, oral sores, dry mouth, tinnitus, nasal congestion or post nasal drip Card: Reports: dyspnea on exertion; Denies: chest pain, palpitations, irregular heart rhythm, edema, swelling of feet/ankles, lightheadedness, syncope, pre-syncope, orthopnea, leg pain with exertion or acrocyanosis Resp: Reports: dyspnea; Denies: productive cough, non-productive cough, wheezing, stridor, pain on inspiration, change in phlegm color, hemoptysis or chest congestion GI: Denies: abdominal pain, nausea, vomiting, hematemesis, coffee ground emesis, dysphagia, heartburn, diarrhea, constipation, bloating, GI cramping, change in bowel habits, pain on defecation, hematochezia or melena : Denies: flank pain, dysuria, urinary frequency, urinary urgency, urinary hesitancy, nocturia or hematuria Musc: Denies: neck pain, back pain, extremity pain, joint pain, joint swelling, joint redness, joint stiffness or limited range of motion Neuro: Denies: headache(s), numbness in extremities, weakness in extremities, sensory changes, lack of coordination, difficulty walking, frequent falls, dizziness, vertigo, confusion, Slurred speech present, difficulty communicating thoughts or seizure-like activity Psych: Denies: anxiety, depression, mood swings, panic attacks, hopelessness or irritability Endo: Denies: polyuria, polydipsia, tired all the time, cold intolerance, excessive sweating, flushing or heat intolerance All/Lymph: Denies: easy bruising or easy bleeding All/Imm: Denies: tongue swelling, facial swelling or acute wheezing Medications/Allergies Home Medications Medication Instructions Recorded Confirmed Last Taken Type albuterol sulfate 90 mcg/actuation 2 puff inhalation QID PRN 04/15/22 04/15/22 Unknown History aerosol inhaler shortness of breath alprazolam 0.25 mg tablet 0.25 mg PO Q4H PRN Anxiety 04/15/22 04/15/22 04/15/22 History apixaban 5 mg tablet (Eliquis) 5 mg PO BID 04/15/22 04/15/22 04/15/22 History aspirin 325 mg tablet 325 mg PO DAILY 04/15/22 04/15/22 04/14/22 History atorvastatin 80 mg tablet 80 mg PO DAILY 04/15/22 04/15/22 04/14/22 History budesonide 0.5 mg/2 mL suspension 0.5 mg inhalation BID PRN 04/15/22 04/15/22 Unknown History for nebulization Shortness Of Breath buspirone 15 mg tablet 15 mg PO BID 04/15/22 04/15/22 04/15/22 History cascara sagrada 325 mg tablet 650 mg PO BEDTIME 04/15/22 04/15/22 04/14/22 History cholecalciferol (vitamin D3) 125 250 mcg PO DAILY 04/15/22 04/15/22 04/14/22 History mcg (5,000 unit) tablet (Vitamin D3) chromium 200 mcg tablet 200 mcg PO DAILY 04/15/22 04/15/22 04/14/22 History furosemide 20 mg tablet 40 mg PO BID 04/15/22 04/15/22 04/15/22 History levothyroxine 100 mcg tablet 100 mcg PO DAILY 04/15/22 04/15/22 04/15/22 History (Synthroid) liothyronine 5 mcg tablet 5 mcg PO DAILY 04/15/22 04/15/22 04/15/22 History magnesium 250 mg tablet 250 mg PO DAILY 04/15/22 04/15/22 04/14/22 History melatonin 5 mg tablet 10 mg PO BEDTIME 04/15/22 04/15/22 04/14/22 History metoprolol succinate 25 mg 12.5 mg PO DAILY 04/15/22 04/15/22 04/14/22 History tablet,extended release 24 hr omeprazole 40 mg capsule,delayed 40 mg PO BID 04/15/22 04/15/22 04/15/22 History release polysaccharide iron complex 150 mg 150 mg PO .MWF 04/15/22 04/15/22 04/13/22 History iron capsule (Ferrex) potassium chloride 20 mEq 20 meq PO DAILY 04/15/22 04/15/22 04/15/22 History tablet,extended release spironolactone 25 mg tablet 25 mg PO DAILY 04/15/22 04/15/22 04/15/22 History tiotropium bromide 2.5 1 inh inhalation DAILY 04/15/22 04/15/22 Unknown History mcg/actuation mist for inhalation (Spiriva Respimat) Allergies Allergy/AdvReac Type Severity Reaction Status Date / Time [facility] Allergy ALGY-Rash Verified 04/15/22 13:39 tramadol Allergy ADR-Shakine Verified 04/15/22 13:39 ss Current Medications Generic Name Dose Route Start Last Admin Trade Name Freq PRN Reason Stop Dose Admin Acetaminophen 650 mg 04/15/22 18:52 04/19/22 00:08 Acetaminophen 325 Mg Tablet PO 650 mg Q6H PRN Administration Mild/Mod Pain Or Temp >/= 101 Albuterol Sulfate 2 puff 04/18/22 07:29 04/19/22 10:52 Albuterol 8 Gm Mdi INHALATION 2 puff Q4H.RESPIRATORY PRN Administration SHORTNESS OF BREATH Apixaban 5 mg 04/16/22 09:00 04/19/22 08:12 Apixaban 5 Mg Tablet PO 5 mg BID MADIE Administration Aspirin 325 mg 04/16/22 09:00 04/19/22 08:12 Aspirin 325 Mg Tablet PO 325 mg DAILY MADIE Administration Atorvastatin Calcium 80 mg 04/16/22 09:00 04/19/22 08:12 Atorvastatin 40 Mg Tablet PO 80 mg DAILY MADIE Administration Budesonide 0.5 mg 04/16/22 09:00 04/19/22 10:43 Budesonide 0.5 Mg/2 Ml Neb INHALATION Not Given BID.RESPIRATORY MADIE Buspirone HCl 15 mg 04/17/22 15:00 04/19/22 15:12 Buspirone 10 Mg Tablet PO 15 mg TID MADIE Administration Docusate Sodium 100 mg 04/16/22 09:00 04/19/22 08:12 Docusate Sodium 100 Mg Capsule PO 100 mg BID MADIE Administration Albumin Human 25 gm in 100 mls @ 60 mls/hr 04/16/22 16:00 04/19/22 09:55 Albumin IV Infused Q8H MADIE Infusion Levothyroxine Sodium 150 mcg 04/17/22 09:00 04/19/22 08:12 Levothyroxine 150 Mcg Tablet PO 150 mcg DAILY MADIE Administration Lorazepam 0.5 mg 04/18/22 16:00 04/19/22 15:20 Lorazepam 0.5 Mg Tablet PO 0.5 mg 0800,1500 PRN Administration ANXIETY Lorazepam 1 mg 04/18/22 21:00 04/18/22 20:13 Lorazepam 1 Mg Tablet PO 1 mg 2100 MADIE Administration Metoprolol Succinate 25 mg 04/15/22 18:45 04/19/22 08:12 Metoprolol Succinate Er (24 Hr) 25 Mg Tablet PO 25 mg DAILY MADIE Administration Non-Formulary Medication 250 mg 04/16/22 09:00 04/19/22 08:26 Magnesium PO Not Given DAILY MADIE Potassium Chloride 40 meq 04/18/22 09:00 04/19/22 15:03 Potassium Chloride Er 20 Meq Tablet PO Not Given BID MADIE PFSH Acute PFSH: Medical History (Updated 04/16/22 @ 15:34 by George Myers DO) CAD (coronary artery disease) Hyperlipidemia Hypertension Hypothyroidism Ischemic cardiomyopathy Systolic congestive heart failure, NYHA class 4 Surgical History (Updated 04/16/22 @ 15:34 by George Myers DO) H/O mitral valve repair Status post aorto-coronary artery bypass graft Social History (Updated 04/15/22 @ 18:43 by Tyrone Cuello MD) Smoking and tobacco status: current every day smoker Alcohol intake: never Substance/Drug Use: never Caregiver/support person: Yes Lives independently: Yes Household members: family Housing: House Vitals/I&O/Wt Last Vital Signs Temp 97.4 F L 04/19/22 15:31 Pulse 100 04/19/22 15:31 Resp 15 04/19/22 15:31 BP 119/79 04/19/22 15:31 Pulse Ox 96 04/19/22 15:31 O2 Del Method 04/19/22 15:31 O2 Flow Rate 3 04/19/22 10:54 04/19/22 04/19/22 04/19/22 06:59 14:59 22:59 Intake Total 250 / 1310 340 / 340 Output Total 25 / 225 Balance 225 / 1085 340 / 340 Weight last 48 hrs Weight 173 lb Weight 169 lb Physical Exam Narrative: GENERAL: Patient is alert, awake and oriented x3. [] NECK: No jugular vein distension. [] HEENT: No cyanosis. No icterus. No pallor. [] HEART: Regular S1 and S2. Grade 2/6 systolic murmur LUNGS: Mild bilateral crackles. Decreased breath sounds. ABDOMEN: Soft, nontender and nondistended. Positive bowel sounds. No guarding, rebound or tenderness. [] CENTRAL NERVOUS SYSTEM: Grossly nonfocal. [] EXTREMITIES: Lower extremities with 2+ edema bilaterally. Pulses palpable in the lower extremities, both dorsalis pedis and posterior tibial. [] Urinary Catheter Management: Ayoub: Cath Placed During This Visit: yes Reason for Continuing Indwelling Catheter: Other Urinary Catheter Date of Insertion: 04/15/22 Urinary Catheter Time of Insertion: 19:07 Data : 04/16/22 03:35 04/20/22 08:45 A&P Assessment and plan (1) Acute on chronic systolic CHF (congestive heart failure), NYHA class 3: Status: Acute (2) S/P CABG (coronary artery bypass graft): Status: Acute (3) H/O mitral valve repair: Status: Acute (4) CAD (coronary artery disease): Status: Acute (5) Atrial fibrillation: Status: Acute (6) Ischemic cardiomyopathy: Status: Acute (7) Hypertension: Status: Acute Plan Patient has presented with acute on chronic congestive heart failure. She has not been diuresing well. We will recommend starting her on milrinone drip. Also we will uptitrate Bumex to 4 mg twice daily. Continue metolazone 2.5 mg daily. Strict I&O's. Telemetry monitoring. Keep monitoring renal function and electrolytes. Consult Attestations Medical Necessity Statement: Care expected to cross 2 midnights. 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
--- NOTE | 2022-04-19 18:15 | PC.NURSE ---
on 04/18/2022 pt urine output was 750cc. from [id number].
[2022-04-19] MEDS: LORazepam 1 mg Tablet PO (21:10)
[2022-04-19] MEDS: budesonide 0.5 mg/2 mL Neb INHALATION (21:14)
--- NOTE | 2022-04-19 21:29 | P.PN_ITS ---
Subjective Subjective: First time rounding on this patient patient was in poor spirits and looking uncomfortable. Second time rounding better spirits more comfortable. Vitals/I&O/Wt Last Vital Signs Temp 97.4 F L 04/19/22 15:31 Pulse 104 H 04/19/22 21:22 Resp 18 04/19/22 21:15 BP 119/79 04/19/22 15:31 Pulse Ox 94 04/19/22 21:15 O2 Del Method 04/19/22 21:15 O2 Flow Rate 3 04/19/22 10:54 FiO2 2.5 04/19/22 21:15 04/19/22 04/19/22 04/19/22 06:59 14:59 22:59 Intake Total 250 / 1310 340 / 340 740 / 1080 Output Total 25 / 975 1700 / 1700 Balance 225 / 335 340 / 340 -960 / -620 Weight last 48 hrs Weight 78.471 kg Weight 76.657 kg Physical Exam Narrative: Heart: Irregularly irregular no loud murmur auscultated Lungs: Diminished throughout bilateral bases crackles about longterm up on the right. Abdomen soft nontender no distention?note this is better than previous. Normal bowel sounds Extremities about one third the size they were when they came in there is still 3+ pitting edema up to upper thigh. Urinary Catheter Management: Ayoub: Cath Placed During This Visit: yes Reason for Continuing Indwelling Catheter: Acute Urinary Retention or Obstruction Urinary Catheter Date of Insertion: 04/15/22 Urinary Catheter Time of Insertion: 19:07 Data : 04/16/22 03:35 04/19/22 02:30 A&P Assessment and plan (1) Acute on chronic systolic CHF (congestive heart failure), NYHA class 3: Patient has not been net negative another day. I consulted cardiology. Greatly appreciate Dr. Torres's help. He advised to double the Bumex dose to 4 mg every 12 hours. I did add Zaroxolyn. The plan was to start milrinone however appropriate bed was not available. When there was a bed available the patient was feeling much better and she had urin ated 1 L starting to look like typical CHF diuresis. The patient declined transfer and wanted to hold off on starting milrinone. I had a discussion with the patient and 1 daughter. We discussed the seriousness of cardiac and lung condition. We discussed the possibility of transfer to [facility] where she had her CABG. Again patient and family declined at this time. Status: Acute (2) Hypothyroidism (acquired): Patient's TSH revealed patient was suboptimally replaced. She takes both levothyroxine and liothyronine. In order to avoid confusion I stopped the liothyronine and increased levothyroxine to 150 mcg daily. This may be the cause of her fatigue. Status: Acute (3) Iron deficiency anemia: Patient has a history of iron deficiency anemia and was taking iron. I did explain to patient and daughter that its most likely due to the abdominal swelling that her iron is not absorbed. We will hold off on further IV iron due to decreasing amount of intake. Status: Acute (4) CAD (coronary artery disease): Recently diagnosed patient is on aspirin and atorvastatin. Status: Acute (5) S/P CABG (coronary artery bypass graft): Surgery was in January. Status: Acute (6) Hyperlipidemia: Patient takes atorvastatin 80 mg a day Status: Acute (7) H/O mitral valve repair: January 2022 Status: Acute Plan * Patient's anxiety is better on dosing with Ativan 0.5 mg p.o. twice daily during the day and 1 mg p.o. nightly. * She had been moved to a private room and got better sleep. * Now both daughters were updated about this patient's severity of illness also has at least moderate COPD * Daughter wants to know if she will get off oxygen and again I attempted to explain that with both lung and heart problems she may not. * Patient is uncomfortable wearing her LifeVest. She states it brings her more anxiety. It she also complains about the plate digging into her. She understands the risks and accepts these Attestations Medical Necessity Statement*: Patient has severe fluid overload patient will require aggressive diuresis with IV diuretics over the next couple days before she will be stable enough to be on oral. Given her recent CABG and mitral valve repair she is at high risk for further cardiac conditions to happen acutely if not monitored in the hospital. 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
[2022-04-19] MEDS: bumetanide 0.25 mg/mL SDV 10 mL 4 MG IVP (22:22)
[2022-04-20] VITALS (9 sets, daily range): BP systolic 108–114; BP diastolic 68–74; PULSE 87–108; RESP 16–20; TEMP 36.4–36.8; O2SAT 90–95
[2022-04-20] MEDS: budesonide 0.5 mg/2 mL Neb INHALATION ×2 (08:19→20:15)
[2022-04-20] MEDS: metoprolol succinate ER (24 HR) 25 mg Tablet PO (08:50)
[2022-04-20] MEDS: atorvastatin 40 mg Tablet 80 MG PO (08:50)
[2022-04-20] MEDS: BuSPIRONE 10 mg Tablet 15 MG PO ×3 (08:50→20:55)
[2022-04-20] MEDS: aspirin 325 mg Tablet PO (08:50)
[2022-04-20] MEDS: potassium chloride ER 20 mEq Tablet 40 MEQ PO ×2 (08:50→18:09)
[2022-04-20] MEDS: apixaban 5 mg Tablet PO ×2 (08:50→18:09)
[2022-04-20] MEDS: levothyroxine 150 mcg Tablet PO (08:51)
[2022-04-20] MEDS: docusate sodium 100 mg Capsule PO ×2 (08:51→18:09)
[2022-04-20] MEDS: metOLazone 5 MG Tablet PO (08:53)
[2022-04-20 09:21] LABS: Anion Gap 18.5 (5-19); Blood Urea Nitrogen 24 mg/dL (8-23); Calcium 10.1 mg/dL (8.5-10.5); Carbon Dioxide 31 mmol/L (22-29); Chloride 89 mmol/L (98-107); Glomerular Filtration Rate 55.6 mL/min (90-130); Glucose 106 mg/dL (65-115); Magnesium 1.8 mg/dL (1.7-2.3); Osmolality Calculated 284 mOsm/kg (285-295); Potassium 3.5 mmol/L (3.5-5.1); Sodium 135 mmol/L (136-145)
[2022-04-20] MEDS: bumetanide 0.25 mg/mL SDV 10 mL 4 MG IVP ×2 (11:03→22:29)
--- NOTE | 2022-04-20 14:27 | P.PN_ITS ---
Subjective Subjective: Patient seen with 2 daughters and granddaughter in room. Patient in better spirits. Denies any chest pain shortness of breath. States her legs are feeling better. Vitals/I&O/Wt Last Vital Signs Temp 97.6 F 04/20/22 12:00 Pulse 99 04/20/22 12:00 Resp 16 04/20/22 12:00 BP 113/74 04/20/22 12:00 Pulse Ox 95 04/20/22 12:00 O2 Del Method 04/20/22 12:00 O2 Flow Rate 2 04/20/22 12:00 FiO2 2.5 04/19/22 21:15 04/19/22 04/20/22 04/20/22 22:59 06:59 14:59 Intake Total 800 / 1140 100 / 1240 100 / 100 Output Total 1700 / 1700 950 / 2650 Balance -900 / -560 -850 / -1410 100 / 100 Weight last 48 hrs Weight 80.966 kg Weight 82.1 kg Weight 78.471 kg Physical Exam Narrative: I/O: -1.4 L No acute distress appears older than her stated age of 66 Heart: Irregularly irregular no loud murmur auscultated Lungs: Diminished throughout bilateral bases crackles about prison up on the right. Abdomen soft nontender no distention?note this is better than previous. Normal bowel sounds Extremities: Overall less edema, 3+ still in lower extremities now 1-2+ in the upper extremities Urinary Catheter Management: Ayoub: Cath Placed During This Visit: yes Reason for Continuing Indwelling Catheter: Acute Urinary Retention or Obstruction Urinary Catheter Date of Insertion: 04/15/22 Urinary Catheter Time of Insertion: 19:07 Data : 04/16/22 03:35 04/20/22 08:45 A&P Assessment and plan (1) Acute on chronic systolic CHF (congestive heart failure), NYHA class 3: Patient is responsive to increased dose of Bumex to 4 mg every 12 hours and the addition of Zaroxolyn. Discussed care with Dr. Torres and he is in agreement with this current treatment. Status: Acute (2) Hypothyroidism (acquired): Patient's TSH revealed patient was suboptimally replaced. She takes both levothyroxine and liothyronine. In order to avoid confusion I stopped the liothyronine and increased levothyroxine to 150 mcg daily. This may be the c ause of her fatigue. Status: Acute (3) Iron deficiency anemia: Patient has a history of iron deficiency anemia and was taking iron. I did explain to patient and daughter that its most likely due to the abdominal swelling that her iron is not absorbed. We will hold off on further IV iron due to decreasing amount of intake. Status: Acute (4) CAD (coronary artery disease): Recently diagnosed patient is on aspirin and atorvastatin. Status: Acute (5) S/P CABG (coronary artery bypass graft): Surgery was in January. Status: Acute (6) Hyperlipidemia: Patient takes atorvastatin 80 mg a day Status: Acute (7) H/O mitral valve repair: January 2022 Status: Acute Plan * Patient's anxiety is better on dosing with Ativan 0.5 mg p.o. twice daily during the day and 1 mg p.o. nightly. * She had been moved to a private room and doing better * both daughters appreciative care. No new questions. * Explained goal of continued diuresis of 1.5 L a day. * Note: Patient is uncomfortable wearing her LifeVest. She states it brings her more anxiety. It she also complains about the plate digging into her. She understands the risks and accepts these Attestations Medical Necessity Statement*: Patient has severe fluid overload patient will require aggressive diuresis with IV diuretics over the next couple days before she will be stable enough to be on oral. Given her recent CABG and mitral valve repair she is at high risk for further cardiac conditions to happen acutely if not monitored in the hospital. 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
--- NOTE | 2022-04-20 14:36 | P.PN_ITS ---
Subjective Subjective: Patient is feeling better. Has diuresed well and had increased dose of Bumex. Vitals/I&O/Wt Last Vital Signs Temp 97.6 F 04/20/22 12:00 Pulse 99 04/20/22 12:00 Resp 16 04/20/22 12:00 BP 113/74 04/20/22 12:00 Pulse Ox 95 04/20/22 12:00 O2 Del Method 04/20/22 12:00 O2 Flow Rate 2 04/20/22 12:00 FiO2 2.5 04/19/22 21:15 04/19/22 04/20/22 04/20/22 22:59 06:59 14:59 Intake Total 800 / 1140 100 / 1240 100 / 100 Output Total 1700 / 1700 950 / 2650 Balance -900 / -560 -850 / -1410 100 / 100 Weight last 48 hrs Weight 178 lb 8 oz Weight 181 lb Weight 173 lb Physical Exam Narrative: GENERAL: Patient is alert, awake and oriented x3. [] NECK: No jugular vein distension. [] HEENT: No cyanosis. No icterus. No pallor. [] HEART: Regular S1 and S2. Grade 2/6 systolic murmur LUNGS: Mild bilateral crackles. Decreased breath sounds. ABDOMEN: Soft, nontender and nondistended. Positive bowel sounds. No guarding, rebound or tenderness. [] CENTRAL NERVOUS SYSTEM: Grossly nonfocal. [] EXTREMITIES: Lower extremities with 2+ edema bilaterally. Pulses palpable in the lower extremities, both dorsalis pedis and posterior tibial. [] Urinary Catheter Management: Ayoub: Cath Placed During This Visit: yes Reason for Continuing Indwelling Catheter: Acute Urinary Retention or Obstruction Urinary Catheter Date of Insertion: 04/15/22 Urinary Catheter Time of Insertion: 19:07 Data : 04/16/22 03:35 04/20/22 08:45 A&P Assessment and plan (1) Acute on chronic systolic CHF (congestive heart failure), NYHA class 3: Status: Acute (2) S/P CABG (coronary artery bypass graft): Status: Acute (3) H/O mitral valve repair: Status: Acute (4) CAD (coronary artery disease): Status: Acute (5) Atrial fibrillation: Status: Acute (6) Ischemic cardiomyopathy: Status: Acute (7) Hypertension: Status: Acute Plan Patient has presented with acute on chronic congestive heart failure. We had increased her dose of IV Bumex to 4 mg twice daily yesterday. Had good response. Continue metolazone. Milrinone drip was not started. However given good diuretic response to higher dose of diuretics, can hold off for now. Monitor renal function and electrolytes closely. Strict I&O's. Telemetry monitoring. Thank you for involving us with care of this patient. We will continue to mirella vargas. Please call with questions. Attestations Medical Necessity Statement*: Care expected to cross 2 midnights. Coding Level of Care Code Acute Component Design Engineer for Kat Butterfield Diagnoses Acute on chronic systolic CHF (congestive heart failure), NYHA class 3 I50.23 S/P CABG (coronary artery bypass graft) Z95.1 H/O mitral valve repair Z98.890 CAD (coronary artery disease) I25.10 Atrial fibrillation I48.91 Ischemic cardiomyopathy I25.5 Hypertension I10
[2022-04-20] MEDS: LORazepam 0.5 mg Tablet PO (14:43)
[2022-04-20] MEDS: albuterol 8 gm MDI 2 PUFF INHALATION (20:23)
[2022-04-20] MEDS: LORazepam 1 mg Tablet PO (20:55)
[2022-04-21] VITALS (8 sets, daily range): BP systolic 113–125; BP diastolic 76–81; PULSE 92–111; RESP 16–19; TEMP 36.6–37; O2SAT 92–97
[2022-04-21] MEDS: budesonide 0.5 mg/2 mL Neb INHALATION ×2 (07:41→20:21)
--- NOTE | 2022-04-21 07:47 | P.PN_ITS ---
Subjective Subjective: Patient had an episode of shortness of breath and hypoxia this AM. I evaluated the patient, she was in afib with RVR . Has been diuresing well. Vitals/I&O/Wt Last Vital Signs Temp 97.9 F 04/21/22 04:00 Pulse 92 04/21/22 07:44 Resp 18 04/21/22 07:44 BP 113/76 04/21/22 04:00 Pulse Ox 93 04/21/22 07:44 O2 Del Method 04/21/22 07:44 O2 Flow Rate 2 04/21/22 07:44 FiO2 2.5 04/19/22 21:15 04/20/22 04/21/22 04/21/22 22:59 06:59 14:59 Intake Total 100 / 200 100 / 300 Output Total 1300 / 2300 550 / 550 Balance 100 / -800 -1200 / -2000 -550 / -550 Weight last 48 hrs Weight 177 lb Weight 178 lb 8 oz Weight 181 lb Physical Exam Narrative: GENERAL: Patient is alert, awake and oriented x3. [] NECK: No jugular vein distension. [] HEENT: No cyanosis. No icterus. No pallor. [] HEART: Regular S1 and S2. Grade 2/6 systolic murmur LUNGS: Mild bilateral crackles. Decreased breath sounds. ABDOMEN: Soft, nontender and nondistended. Positive bowel sounds. No guarding, rebound or tenderness. [] CENTRAL NERVOUS SYSTEM: Grossly nonfocal. [] EXTREMITIES: Lower extremities with 2+ edema bilaterally. Pulses palpable in the lower extremities, both dorsalis pedis and posterior tibial. [] Urinary Catheter Management: Ayoub: Cath Placed During This Visit: yes Reason for Continuing Indwelling Catheter: Acute Urinary Retention or Obstruction Urinary Catheter Date of Insertion: 04/15/22 Urinary Catheter Time of Insertion: 19:07 Data : 04/16/22 03:35 04/20/22 08:45 Micro: Microbiology 04/15/22 19:35 Blood Culture - Final Blood NO GROWTH AFTER 5 DAYS 04/15/22 19:33 Blood Culture - Final Blood NO GROWTH AFTER 5 DAYS A&P Assessment and plan (1) Acute on chronic systolic CHF (congestive heart failure), NYHA class 3: Status: Acute (2) S/P CABG (coronary artery bypass graft): Status: Acute (3) H/O mitral valve repair: Status: Acute (4) CAD (coronary artery disease): Status: Acute (5) Atrial fibrillation: Status: Acute (6) Ischemic cardiomyopathy: Status: Acute (7) Hypertension: Status: Acute Plan Patient has been diuresing well. To continue IV Bumex 4 mg twice daily. Jayesh cano labs are not back. Monitor renal functions closely. Had an episode of hypoxia patient felt short of breath briefly this morning. EKG shows atrial fibrillation with RVR. Will start on amiodarone. Will also up uptitrate metoprolol. Transferred to cardiac stepdown unit bed for closer monitoring Strict I&O's. Telemetry monitoring. Thank you for involving us with care of this patient. We will continue to follow. Please call with questions. Attestations Medical Necessity Statement*: Care expected to cross 2 midnights. Coding Level of Care Code Acute Senior Courtroom Clerk for Kat Butterfield Diagnoses Acute on chronic systolic CHF (congestive heart failure), NYHA class 3 I50.23 S/P CABG (coronary artery bypass graft) Z95.1 H/O mitral valve repair Z98.890 CAD (coronary artery disease) I25.10 Atrial fibrillation I48.91 Ischemic cardiomyopathy I25.5 Hypertension I10
[2022-04-21] MEDS: LORazepam 0.5 mg Tablet PO ×2 (08:26→15:15)
[2022-04-21] MEDS: bumetanide 0.25 mg/mL SDV 10 mL 4 MG IVP (08:26)
--- NOTE | 2022-04-21 08:51 | ECG_ITS ---
[facility] Test Date: 2022-04-21 Pat Name: Jessica Larkin Department: Room: 262 Gender: Female Senior Licensing Manager: : [id number] Requested By: Messi Torres Order Number: [id number] Daniella MD: Kaykay Grayson M.D. Measurements Intervals [place] Rate: 112 P: [place]: QRS: -3 QRSD: 145 T: 144 QT: 370 QTc: 507 Interpretive Statements Sinus tachycardia with PAC's LEFT BUNDLE BRANCH BLOCK [120+ ms QRS DURATION, 80+ ms Q/S IN V1/V2, 85+ ms R IN I/aVL/V5/V6] Compared to ECG 04/15/2022 23:08:44 Sinus tachycardia no longer present Electronically Signed On 04-21-2022 13:33:18 CDT by Kaykay Grayson M.D. [email or web address] Labstyler holmes memorial hospitalZarpamos.[facility].[employer]/store/NU/[id number] f
[2022-04-21 10:04] LABS: Anion Gap 18.4 (5-19); Blood Urea Nitrogen 28 mg/dL (8-23); Calcium 10.7 mg/dL (8.5-10.5); Carbon Dioxide 34 mmol/L (22-29); Chloride 87 mmol/L (98-107); Glomerular Filtration Rate 55.6 mL/min (90-130); Glucose 138 mg/dL (65-115); Magnesium 1.8 mg/dL (1.7-2.3); Osmolality Calculated 290 mOsm/kg (285-295); Potassium 3.4 mmol/L (3.5-5.1); Sodium 136 mmol/L (136-145)
--- NOTE | 2022-04-21 10:11 | PC.SOCIAL ---
IMM Update pg 2 of IMM updated and reviewed w/ patient. Copy provided and Copy in chart dated and initialed.
[2022-04-21] MEDS: aspirin 325 mg Tablet PO (11:34)
[2022-04-21] MEDS: apixaban 5 mg Tablet PO ×2 (11:34→18:57)
[2022-04-21] MEDS: metoprolol succinate ER (24 HR) 25 mg Tablet PO (11:34)
[2022-04-21] MEDS: docusate sodium 100 mg Capsule PO ×2 (11:34→18:57)
[2022-04-21] MEDS: potassium chloride ER 20 mEq Tablet 40 MEQ PO ×2 (11:34→18:57)
[2022-04-21] MEDS: BuSPIRONE 10 mg Tablet 15 MG PO ×3 (11:34→21:21)
[2022-04-21] MEDS: levothyroxine 150 mcg Tablet PO (11:34)
[2022-04-21] MEDS: atorvastatin 40 mg Tablet 80 MG PO (11:35)
[2022-04-21] MEDS: metOLazone 5 MG Tablet PO (11:41)
--- NOTE | 2022-04-21 12:29 | ECG_ITS ---
[facility] Test Date: 2022-04-21 Pat Name: Jessica Larkin Department: Room: 262 Gender: Female Competitive Intelligence Manager: : 1955 Requested By: George Myers Order Number: [id number] Daniella MD: Kaykay Grayson M.D. Measurements Intervals [place] Rate: 109 P: 62 [place]: 128 QRS: -1 QRSD: 144 T: 158 QT: 377 QTc: 508 Interpretive Statements SINUS TACHYCARDIA WITH OCCASIONAL SUPRAVENTRICULAR PREMATURE COMPLEXES LEFT BUNDLE BRANCH BLOCK [120+ ms QRS DURATION, 80+ ms Q/S IN V1/V2, 85+ ms R IN I/aVL/V5/V6] Compared to ECG 04/21/2022 08:12:10 Atrial fibrillation no longer present Electronically Signed On 04-21-2022 13:32:30 CDT by Kaykay Grayson M.D. [email or web address] [email or web address] mississippi state hospitalKurtosysohiohealth [facility].[employer]/store/OM/[id number]
[2022-04-21 13:55] LABS: Troponin T (5th) Once 66 ng/L (0-10)
--- NOTE | 2022-04-21 19:19 | P.PN_ITS ---
Subjective Subjective: Patient reported feeling much better than this morning. She had an episode of hypoxia shortness of breath and some chest pain. The EKG report stated A. fib however closer look she was in normal sinus rhythm with a couple of PACs. Vitals/I&O/Wt Last Vital Signs Temp 98.1 F 04/21/22 16:00 Pulse 105 H 04/21/22 16:00 Resp 16 04/21/22 16:00 BP 125/76 04/21/22 16:00 Pulse Ox 97 04/21/22 16:00 O2 Del Method 04/21/22 16:00 O2 Flow Rate 2 04/21/22 07:44 FiO2 2.5 04/19/22 21:15 04/21/22 04/21/22 04/21/22 06:59 14:59 22:59 Intake Total 100 / 300 100 / 100 100 / 200 Output Total 1300 / 2300 550 / 550 1500 / 2050 Balance -1200 / -2000 -450 / -450 -1400 / -1850 Weight last 48 hrs Weight 80.286 kg Weight 80.966 kg Weight 82.1 kg Physical Exam Narrative: 24 hr I/O: -2 L No acute distress appears older than her stated age of 66 Heart: Regular rate and rhythm no loud murmur auscultated Lungs: Diminished throughout bilateral bases crackles about longterm up on the right. Abdomen soft nontender no distention?note this is better than previous. Normal bowel sounds Extremities: Much less edema, 2+ still in lower extremities upper legs are starting to look normal now. Urinary Catheter Management: Ayoub: Cath Placed During This Visit: yes Reason for Continuing Indwelling Catheter: Acute Urinary Retention or Obstruction Urinary Catheter Date of Insertion: 04/15/22 Urinary Catheter Time of Insertion: 19:07 Data : 04/16/22 03:35 04/21/22 09:10 Micro: Microbiology 04/15/22 19:35 Blood Culture - Final Blood NO GROWTH AFTER 5 DAYS 04/15/22 19:33 Blood Culture - Final Blood NO GROWTH AFTER 5 DAYS A&P Assessment and plan (1) Acute on chronic systolic CHF (congestive heart failure), NYHA class 3: Patient has has diuresed well on Bumex 4 mg every 12 hours and Zaroxolyn 5 mg prior to a.m. dose. With bump in BUN will start to decrease the Bumex dose. Anticipate home tomorrow. Status: Acute (2) Hypoxia: Patient had an episode of severe hypoxia this morning after awakening with oxygen off. Her pulse ox was in the 70s. She got anxious and also suffered from chest pain. Cardiology rounded. EKG print out reported atrial fibr illation. However after closer review patient was in normal sinus rhythm with the intraventricular conduction delay and had 3 PACs. Will have patient evaluated for home oxygen tomorrow morning prior to discharge. Status: Acute (3) Hypothyroidism (acquired): Patient's TSH revealed patient was suboptimally replaced. She takes both levothyroxine and liothyronine. In order to avoid confusion I stopped the liothyronine and increased levothyroxine to 150 mcg daily. This may be contributing to her fatigue. Status: Acute (4) Iron deficiency anemia: Patient has a history of iron deficiency anemia and was taking iron. I did explain to patient and daughter that its most likely due to the abdominal swelling that her iron is not absorbed. Patient had a couple of doses of IV iron while hospitalized. Status: Acute (5) CAD (coronary artery disease): Recently diagnosed patient is on aspirin and atorvastatin. Status: Acute (6) S/P CABG (coronary artery bypass graft): Surgery was in January. Status: Acute (7) Hyperlipidemia: Patient takes atorvastatin 80 mg a day Status: Acute (8) H/O mitral valve repair: January 2022 Status: Acute Plan * Patient's anxiety is better on dosing with Ativan 0.5 mg p.o. twice daily during the day and 1 mg p.o. nightly. * She had been moved to a private room and doing better * both daughters appreciative care. No new questions. * Explained goal of continued diuresis of 1.5 L a day. * Note: Patient is uncomfortable wearing her LifeVest. She states it brings her more anxiety. It she also complains about the plate digging into her. She understands the risks and accepts these Attestations Medical Necessity Statement*: Patient has severe fluid overload patient will require aggressive diuresis with IV diuretics over the next couple days before she will be stable enough to be on oral. Given her recent CABG and mitral valve repair she is at high risk for further cardiac complications acutely if not monitored in the hospital. Coding Level of Care Code Acute Cell Operation Supervisor for Kat Butterfield Diagnoses Acute on chronic systolic CHF (congestive heart failure), NYHA class 3 I50.23 Hypoxia R09.02 Hypothyroidism (acquired) E03.9 Iron deficiency anemia D50.9 CAD (coronary artery disease) I25.10 S/P CABG (coronary artery bypass graft) Z95.1 Hyperlipidemia E78.5 H/O mitral valve repair Z98.890
--- NOTE | 2022-04-21 20:47 | PC.RESP ---
Pt in bed feeling anxious and wanting to relax at this time does not want to do home o2 eval at this time
[2022-04-21] MEDS: LORazepam 1 mg Tablet PO (21:22)
[2022-04-21] MEDS: bumetanide 0.25 mg/mL SDV 10 mL 2 MG IVP (21:23)
[2022-04-21] MEDS: alum-mag-hydroxide-sime 30 mL UDC 15 ML PO (21:32)
[2022-04-21] MEDS: acetaminophen 325 mg Tablet 650 MG PO (21:32)
[2022-04-22] VITALS (8 sets, daily range): BP systolic 111–120; BP diastolic 68–79; PULSE 0–106; RESP 16–18; TEMP 36.4–36.6; O2SAT 86–98
[2022-04-22 05:38] LABS: Anion Gap 17.4 (5-19); Blood Urea Nitrogen 34 mg/dL (8-23); Calcium 10.9 mg/dL (8.5-10.5); Carbon Dioxide 34 mmol/L (22-29); Chloride 89 mmol/L (98-107); Glomerular Filtration Rate 45.1 mL/min (90-130); Glucose 151 mg/dL (65-115); Magnesium 1.9 mg/dL (1.7-2.3); Osmolality Calculated 293 mOsm/kg (285-295); Potassium 4.4 mmol/L (3.5-5.1); Sodium 136 mmol/L (136-145)
[2022-04-22] MEDS: budesonide 0.5 mg/2 mL Neb INHALATION (08:03)
--- NOTE | 2022-04-22 09:44 | PM.PN ---
Subjective Subjective: Patient is stable and denies significant shortness of breath. She has diuresed well. Vitals/I&O/Wt Last Vital Signs Temp 97.7 F 04/22/22 07:53 Pulse 94 04/22/22 08:00 Resp 18 04/22/22 08:00 BP 120/79 04/22/22 07:53 Pulse Ox 94 04/22/22 08:00 O2 Del Method 04/22/22 08:00 O2 Flow Rate 2 04/22/22 08:00 FiO2 2.5 04/19/22 21:15 04/21/22 04/22/22 04/22/22 22:59 06:59 14:59 Intake Total 100 / 200 100 / 300 Output Total 1500 / 0 225 / 2275 Balance -1400 / -1849 -125 / -1974 Weight last 48 hrs Weight 176 lb 6.4 oz Weight 177 lb Physical Exam Narrative: GENERAL: Patient is alert, awake and oriented x3. [] NECK: No jugular vein distension. [] HEENT: No cyanosis. No icterus. No pallor. [] HEART: Regular S1 and S2. Grade 2/6 systolic murmur LUNGS: Mild bilateral crackles. Decreased breath sounds. ABDOMEN: Soft, nontender and nondistended. Positive bowel sounds. No guarding, rebound or tenderness. [] CENTRAL NERVOUS SYSTEM: Grossly nonfocal. [] EXTREMITIES: Lower extremities with 2+ edema bilaterally. Pulses palpable in the lower extremities, both dorsalis pedis and posterior tibial. [] Urinary Catheter Management: Ayoub: Cath Placed During This Visit: yes Reason for Continuing Indwelling Catheter: Acute Urinary Retention or Obstruction Urinary Catheter Date of Insertion: 04/15/22 Urinary Catheter Time of Insertion: 19:07 Data : 04/16/22 03:35 04/22/22 04:59 A&P Assessment and plan (1) Acute on chronic systolic CHF (congestive heart failure), NYHA class 3: Status: Acute (2) S/P CABG (coronary artery bypass graft): Status: Inactive (3) H/O mitral valve repair: Status: Inactive (4) CAD (coronary artery disease): Status: Inactive (5) Atrial fibrillation: Status: Deleted (6) Ischemic cardiomyopathy: Status: Inactive (7) Hypertension: Status: Inactive Plan Patient is feeling better. Patient is stable to be discharged from cardiology standpoint. Continue Entresto. Will be uptitrated as allowed as outpatient. Continue metoprolol Patient is stable to be discharged from cardiology standpoint. We will follow as outpatient Attestations Medical Necessity Statement*: Care expected to cross 2 midnights. Coding Level of Care Code Acute Fuel Verification Technician for Kat Fwd Diagnoses Acute on chronic systolic CHF (congestive heart failure), NYHA class 3 I50.23 S/P CABG (coronary artery bypass graft) Z95.1 H/O mitral valve repair Z98.890 CAD (coronary artery disease) I25.10 Atrial fibrillation I48.91 Ischemic cardiomyopathy I25.5 Hypertension I10
[2022-04-22] MEDS: apixaban 5 mg Tablet PO (10:44)
[2022-04-22] MEDS: LORazepam 0.5 mg Tablet PO (10:44)
[2022-04-22] MEDS: aspirin 325 mg Tablet PO (10:44)
[2022-04-22] MEDS: atorvastatin 40 mg Tablet 80 MG PO (10:44)
[2022-04-22] MEDS: metOLazone 5 MG Tablet PO (10:45)
[2022-04-22] MEDS: BuSPIRONE 10 mg Tablet 15 MG PO (10:45)
[2022-04-22] MEDS: docusate sodium 100 mg Capsule PO (10:45)
[2022-04-22] MEDS: potassium chloride ER 20 mEq Tablet 40 MEQ PO (10:46)
[2022-04-22] MEDS: levothyroxine 150 mcg Tablet PO (10:46)
[2022-04-22] MEDS: metoprolol succinate ER (24 HR) 25 mg Tablet PO (10:46)
[2022-04-22] MEDS: bumetanide 0.25 mg/mL SDV 10 mL 2 MG IVP (10:56)
--- NOTE | 2022-04-22 17:27 | PM.DCS ---
Discharge Providers Date of Admission: 04/16/22 07:00 Date of Discharge: April 22, 2022 Attending Provider at Admission: Tyrone Cuello MD Attending Provider at Discharge: George Myers DO Diagnoses at Discharge Discharge Diagnosis (1) Acute on chronic systolic CHF (congestive heart failure), NYHA class 3: Status: Acute (2) Hypoxia: Status: Acute (3) Hypothyroidism (acquired): Status: Acute (4) Iron deficiency anemia: Status: Acute (5) CAD (coronary artery disease): Status: Acute (6) S/P CABG (coronary artery bypass graft): Status: Acute (7) Hyperlipidemia: Status: Acute (8) H/O mitral valve repair: Status: Acute Reason for Visit Reason for Visit: SOB Brief History: Patient admitted for CHF exacerbation acute on chronic. Hospital Course Hospital Course Patient admitted for CHF exacerbation with shortness of breath and anasarca of the lower extremities. She was placed on double her dose of home Lasix. She had initial results on this dose however after a few days her urine output decreased and required changed to Bumex and addition of Zaroxolyn. It was discussed to send to the unit on milrinone. However the with the addition of the Zaroxolyn patient started to have diuresed extremely well with the last few days of admission diuresing almost 2 L a day. Cardiology was consulted during her hospital stay and concurred with this treatment. Patient has severe anxiety which is contributing to some of her symptomatology. She has been started on BuSpar 15 mg twice daily with plans to increase to 3 times daily after a week. She is to stop Lasix and changed to Bumex 2 mg twice daily. Continue potassium and magnesium supplementation. Entresto was added per cardiology. In metoprolol was increased. Her blood pressure was low normal will follow as outpatient. Also please note her TSH was 20 on admission. She was taking both Synthroid and T3 generic. I stopped the T3 and increased her Synthroid dose from 100 mcg to 150 mcg. She will need a TSH in 3 months please Physical Exam Narrative: Another net -2 L in the last 24 hours. No acute distress appears older than her stated age of 66 Heart: Regular rate and rhythm no loud murmur auscultated Lungs: Diminished throughout, crackles right base. Abdomen soft nontender no distention Normal bowel sounds Extremities: Much less edema, 2+ still in lower extremities, upper legs close to normal Urinary Catheter Management: Ayoub: Cath Placed During This Visit: yes Reason for Continuing Indwelling Catheter: Acute Urinary Retention or Obstruction Urinary Catheter Date of Insertion: 04/15/22 Urinary Catheter Time of Insertion: 19:07 Discharge Data Studies Completed and Pending Completed Studies During Hospitalization Category Date Time Status CT chest wo con [id number] Stat Cat Scan 04/15/22 18:27 Completed CXRP [XR chest 1V portable [id number]] Stat Exams 04/18/22 15:11 Completed XR chest 1V portable [id number] Stat Exams 04/15/22 14:03 [place] [id number] Urgent Ultrasound 04/15/22 18:27 Completed CV. echo complete* [id number] Stat Ultrasound 04/15/22 17:15 Completed Radiology Impressions Chest CT 04/15/22 18:27 IMPRESSION: 1. Cardiomegaly with vascular congestion and mild interstitial pulmonary edema. Slightly dilated IVC/hepatic veins as described above. 2. Small bilateral pleural effusions with adjacent consolidations suggesting compressive atelectasis versus developing pneumonia. Mild smooth pulmonary septal thickening and ill-defined patchy non round ground-glass opacities are also present. See discussion above. 3. Mild dilatation of main pulmonary artery. 4. Coronary calcification. 5. Nonspecific mild mediastinal adenopathy. Considerations include inflammatory disease, sarcoidosis or other reactive infectious adenopathy. Neoplastic disease cannot be excluded. Comparison prior exam and follow-up exam should be obtained. 6. Trace perihepatic ascites. Venous Duplex 04/15/22 18:27 IMPRESSION: No evidence of right lower extremity DVT. See discussion above. (report and exam images in conjunction with the left-sided exam.) Chest X-Ray 04/18/22 15:11 Impression: No change in congestive heart failure. Laboratory Results WBC 10.2 10^3/uL (4.0-10.0) H 04/16/22 03:35 RBC 4.16 10^6/uL (4.1-5.3) 04/16/22 03:35 Hgb 10.3 g/dL (11.5-15.3) L 04/16/22 03:35 Hct 35.4 % (37.0-47.0) L 04/16/22 03:35 MCV 85.1 fl (81-99) 04/16/22 03:35 MCH 24.8 pg (28.0-34.0) L 04/16/22 03:35 MCHC 29.1 g/dL (30.0-36.0) L 04/16/22 03:35 RDW 17.2 % (12.1-15.1) H 04/16/22 03:35 Plt Count 527 10^3/cmm (130-400) H 04/16/22 03:35 MPV 9.6 fL (7.4-10.4) 04/16/22 03:35 Neut % (Auto) 84.1 % 04/16/22 03:35 Lymph % (Auto) 6.4 % 04/16/22 03:35 [place] % (Auto) 7.6 % 04/16/22 03:35 Eos % (Auto) 0.9 % 04/16/22 03:35 Baso % (Auto) 0.3 % 04/16/22 03:35 Neut # (Auto) 8.57 10^3/uL (1.8-7.7) H 04/16/22 03:35 Lymph # (Auto) 0.7 10^3/uL (0.8-4.8) L 04/16/22 03:35 [place] # (Auto) 0.8 10^3/uL (0.2-0.9) 04/16/22 03:35 Eos # (Auto) 0.1 10^3/uL (0.0-0.8) 04/16/22 03:35 Baso # (Auto) 0.0 10^3/uL (0.0-0.1) 04/16/22 03:35 Nucleated RBC % (auto) 1.9 % 04/16/22 03:35 Nucleated RBCs # 0.2 /100WBC 04/16/22 03:35 D-Dimer 3.89 ug/mIFEU (0-0.59) H 04/15/22 14:08 Sodium 136 mmol/L (136-145) 04/22/22 04:59 Potassium 4.4 mmol/L (3.5-5.1) 04/22/22 04:59 Chloride 89 mmol/L (98-107) L 04/22/22 04:59 Carbon Dioxide 34 mmol/L (22-29) H 04/22/22 04:59 Anion Gap 17.4 (5-19) 04/22/22 04:59 BUN 34 mg/dL (8-23) H 04/22/22 04:59 Creatinine 1.2 mg/dL (0.5-0.9) H 04/22/22 04:59 GFR Calculation 45.1 mL/min (90-130) L 04/22/22 04:59 Glucose 151 mg/dL (65-115) H 04/22/22 04:59 Estimat Average Glucose 126 04/16/22 03:35 Hemoglobin A1c 6.0 % (4.0-6.0) 04/16/22 03:35 Calculated Osmolality 293 mOsm/kg (285-295) 04/22/22 04:59 Calcium 10.9 mg/dL (8.5-10.5) H 04/22/22 04:59 Magnesium 1.9 mg/dL (1.7-2.3) 04/22/22 04:59 Iron 18 ug/dL (37-145) L 04/15/22 18:02 TIBC 417 mcg/dl 04/15/22 18:02 % Saturation 4.3 % (20-50) L 04/15/22 18:02 Unsat Iron Binding 399 ug/dL (112-347) H 04/15/22 18:02 Total Bilirubin 0.4 mg/dL (0.15-1.2) 04/16/22 03:35 AST 73 U/L (0-32) H 04/16/22 03:35 ALT 82 U/L (0-33) H 04/16/22 03:35 Alkaline Phosphatase 92 IU/L (35-105) 04/16/22 03:35 Troponin T Gen 5 ng/L 66 ng/L (0-10) H 04/21/22 12:51 Troponin T Baseline 59 ng/L (0-10) H 04/15/22 14:08 Troponin T 120 Minute 46.94 ng/L (0-10) H 04/15/22 18:02 Delta Troponin T -12.06 ABS# (0-10) L 04/15/22 18:02 Troponin T Hi Sens 6Hr 63.21 ng/L (0-10) H 04/15/22 23:10 Troponin T Hi Sens 6Hr Delta 4.21 ng/L (0-12) 04/15/22 23:10 C-Reactive Protein 18.6 mg/L (0.0-4.9) H 04/15/22 18:02 NT-Pro-B Natriuret Pep 10220 pg/mL (0-125) H 04/15/22 14:08 Total Protein 6.5 g/dL (6.6-8.7) L 04/16/22 03:35 Albumin 4.2 g/dL (3.5-5.2) 04/16/22 03:35 Globulin 2.3 g/dL (1.3-4.6) 04/16/22 03:35 Triglycerides 111 mg/dL (0-150) 04/16/22 03:35 Cholesterol 109 mg/dL (0-200) 04/16/22 03:35 LDL Cholesterol, Calc 61 mg/dL (50-129) 04/16/22 03:35 Total VLDL Cholesterol 22 mg/dL (0-30) 04/16/22 03:35 HDL Cholesterol 26 mg/dL (60-100) L 04/16/22 03:35 Cholesterol/HDL Ratio 4.19 mg/dL (0.0-4.40) 04/16/22 03:35 Vitamin B12 951 pg/mL (232-1245) 04/15/22 18:02 Folate 17.0 ng/mL (4.8-37.3) 04/15/22 19:33 Procalcitonin 0.09 ng/mL (0-0.5) 04/15/22 18:02 TSH 21.41 uIU/mL (0.27-4.20) H 04/15/22 18:02 Free T4 1.62 ng/dL (0.82-1.77) 04/16/22 03:35 Free T3 1.4 PG/ML (2.0-4.4) L 04/16/22 03:35 Urine Color Yellow (Yellow) 04/15/22 18:55 Urine Appearance Clear (CLEAR) 04/15/22 18:55 Urine pH 5 (5-7) 04/15/22 18:55 Ur Specific [place] 1.020 (1.005-1.030) 04/15/22 18:55 Urine Protein Neg (Negative) 04/15/22 18:55 Urine Glucose (UA) Norm (Normal) 04/15/22 18:55 Urine Ketones Negative (Negative) 04/15/22 18:55 Urine Blood Neg (Negative) 04/15/22 18:55 Urine Nitrate Negative (Negative) 04/15/22 18:55 Urine Bilirubin Neg (Negative) 04/15/22 18:55 Urine Urobilinogen Neg mg/dL (Negative) 04/15/22 18:55 Ur Leukocyte Esterase Negative (Negative) 04/15/22 18:55 Ur Eosinophil Smear 0 (0-0) 04/15/22 18:55 Urine Eosinophils No eosinophils seen 04/15/22 18:55 Ur Random Sodium 50 mmol/L 04/15/22 18:55 Ur Random Potassium 40 mmol/L 04/15/22 18:55 Ur Random Chloride 75 mmol/L 04/15/22 18:55 Urine Creatinine 35 mg/dL (28-217) 04/15/22 18:55 Vitals Last Vital Signs Temp 97.9 F 04/22/22 12:00 Pulse 106 H 04/22/22 12:00 Resp 16 04/22/22 12:00 BP 115/68 04/22/22 12:00 Pulse Ox 95 04/22/22 12:00 O2 Del Method 04/22/22 12:00 O2 Flow Rate 2 04/22/22 12:00 FiO2 2.5 04/19/22 21:15 Discharge Plan Discharge Patient Disposition: Home Health Service Condition: Stable Prescriptions: New lorazepam 0.5 mg Tablet 0.5 mg PO 0800,1500 Qty: 60 0RF levothyroxine 150 mcg Tablet 150 mcg PO DAILY Qty: 30 0RF metolazone 5 mg Tablet 5 mg PO DAILY Qty: 30 0RF lorazepam 1 mg Tablet 1 mg PO 2100 Qty: 30 0RF metoprolol succinate 50 mg tablet extended release 24 hr 50 mg PO DAILY Qty: 30 0RF potassium chloride 20 mEq tablet,ER particles/crystals 20 meq PO BID Qty: 60 0RF Synthroid 150 mcg tablet 150 mcg PO DAILY Qty: 30 0RF bumetanide 2 mg tablet 2 mg PO BID Qty: 60 0RF Entresto 24-26 mg tablet 1 tab PO BID Qty: 60 0RF Ativan 0.5 mg tablet 0.5 mg PO BID Qty: 30 0RF Ativan 1 mg tablet 1 mg PO BEDTIME Qty: 30 0RF Continued atorvastatin 80 mg tablet 80 mg PO DAILY aspirin 325 mg Tablet 325 mg PO DAILY gaby sagrada 325 mg Tablet 650 mg PO BEDTIME Ferrex 150 150 mg iron capsule 150 mg PO .MWF omeprazole 40 mg capsule,delayed release(DR/EC) 40 mg PO BID spironolactone 25 mg tablet 25 mg PO DAILY Synthroid 100 mcg tablet 100 mcg PO DAILY chromium 200 mcg Tablet 200 mcg PO DAILY budesonide 0.5 mg/2 mL suspension for nebulization 0.5 mg inhalation BID PRN (Reason: Shortness Of Breath) magnesium 250 mg Tablet 250 mg PO DAILY albuterol sulfate 90 mcg/actuation HFA aerosol inhaler 2 puff INHALATION QID PRN (Reason: shortness of breath) buspirone 15 mg tablet 15 mg PO BID melatonin 5 mg Tablet 10 mg PO BEDTIME Vitamin D3 125 mcg (5,000 unit) Tablet 250 mcg PO DAILY Spiriva Respimat 2.5 mcg/actuation mist 1 inh INHALATION DAILY Eliquis 5 mg tablet 5 mg PO BID Discontinued liothyronine 5 mcg tablet 5 mcg PO DAILY alprazolam 0.25 mg tablet 0.25 mg PO Q4H PRN (Reason: Anxiety) furosemide 20 mg tablet 40 mg PO BID metoprolol succinate 25 mg tablet extended release 24 hr 12.5 mg PO DAILY potassium chloride 20 mEq tablet extended release 20 meq PO DAILY Discharge Orders: Discharge Order (Routine); Ordered 04/22/22 Ordered By: George Myers Other Ambulatory Orders: DME: Oxygen (Order) Location: None Selected Ordered By: George Myers Referrals: [facility] – [place] [Outside] [facility] [Outside] Messi Torres M.D [Physician] - Discharge Diet: Cardiac, Low Salt and Low Cholesterol Discharge Activity: Increase activity as tolerated and Oxygen as instructed Patient Instructions: Metoprolol (By mouth), Metolazone (By mouth), Bumetanide (By mouth) (Bumex), Lorazepam (By mouth), Potassium Chloride (By mouth), Sacubitril/Valsartan (By mouth), Heart Failure (GEN), CHF Stoplight Activity Restrictions/Additional Instructions: Multiple medication changes: Increase metoprolol to 50 mg daily. Stop levothyroxine. Increase levothyroxine. (TSH 21) Add metolazone for diuresis Increase potassium to 20 mEq twice daily Stop Xanax Use Ativan 0.5 mg twice a day during day and 1 mg at night for sleep. You were started on BuSpar 15 mg p.o. twice daily. This can be increased to 15 mg 3 times daily in 1 week. See your PCP for new prescription Dr. Perez asked that you be started on Entresto. If your blood pressure is low you may hold this. Recommend counseling and support group for unresolved grief. Remember to weigh yourself daily and record. This should be done first thing in the morning after urinating. Prior to any intake. Increase Bumex dose if gain greater than 2 pounds in 1 day. Call your energy efficient site manager. Discharge Attestations Time Spent in Discharge Care*: greater than 30 min Quality Metrics Clinical Quality Measures [ No reported AMI, CVA or VTE this stay] Coding Level of Care Code Acute Chg FW DC note Diagnoses Acute on chronic systolic CHF (congestive heart failure), NYHA class 3 I50.23 Hypoxia R09.02 Hypothyroidism (acquired) E03.9 Iron deficiency anemia D50.9 CAD (coronary artery disease) I25.10 S/P CABG (coronary artery bypass graft) Z95.1 Hyperlipidemia E78.5 H/O mitral valve repair Z98.890
== END 2022-04-22 15:30 | disposition home health service (06) | DRG 291 ==
LOC: ER 17:49 → ICU 21:53 → ER IP 04-16 00:35 → MEDSURG 04-16 15:19
PROVIDERS: Admitting Provider Student in an Organized Health Care Education/Training Program; Emergency Provider Family Medicine; Visit Provider Internal Medicine
DX: I11.0 Hypertensive heart disease with heart failure (principal); I50.23 Acute on chronic systolic (congestive) heart failure; E87.1 Hypo-osmolality and hyponatremia; E87.5 Hyperkalemia; I25.5 Ischemic cardiomyopathy; I25.10 Atherosclerotic heart disease of native coronary artery without angina pectoris; F41.9 Anxiety disorder, unspecified; E03.9 Hypothyroidism, unspecified; E78.5 Hyperlipidemia, unspecified; D50.9 Iron deficiency anemia, unspecified; R74.01 Elevation of levels of liver transaminase levels; J44.9 Chronic obstructive pulmonary disease, unspecified; R09.02 Hypoxemia; F17.200 Nicotine dependence, unspecified, uncomplicated; N81.10 Cystocele, unspecified; R39.198 Other difficulties with micturition; Z79.01 Long term (current) use of anticoagulants; Z79.82 Long term (current) use of aspirin; Z95.1 Presence of aortocoronary bypass graft; Z79.899 Other long term (current) drug therapy; Z98.890 Other specified postprocedural states
CPT/HCPCS: 36415; 51702; 71045; 71250; 80048; 80053; 80061; 81003; 82436; 82570; 82607; 82746; 83036; 83540; 83550; 83735; 83880; 84133; 84145; 84300; 84439; 84443; 84481; 84484; 85025; 85378; 85999; 86140; 86403; 87040; 87449; 87641; 93005; 93306; 93970; 94640; 94664; 94760; 96374; 99285; J1756; J1940; J3490; J3535; J7626; P9047

== ENCOUNTER → 2022-04-26 15:05 | Outpatient (BNVA) | payer MEDICARE, SELFPAY | PROVIDERS: PCP Family Medicine; Visit Provider Nurse Practitioner Family | DX: I11.0 Hypertensive heart disease with heart failure (principal); I50.41 Acute combined systolic (congestive) and diastolic (congestive) heart failure; E78.5 Hyperlipidemia, unspecified; Z87.891 Personal history of nicotine dependence | CPT/HCPCS: 36415; 80048; 83880; 99214 ==

== ENCOUNTER → 2022-05-09 12:15 | Outpatient (BNVA) | payer MEDICARE, SELFPAY | PROVIDERS: PCP Nurse Practitioner Family; Visit Provider Nurse Practitioner Family | DX: I11.0 Hypertensive heart disease with heart failure (principal); I50.41 Acute combined systolic (congestive) and diastolic (congestive) heart failure; F17.200 Nicotine dependence, unspecified, uncomplicated | CPT/HCPCS: 36415; 80048; 82728; 83540; 83550; 83880; 85025; 99214 ==

== ENCOUNTER → 2022-06-26 11:54 | Outpatient (BNVA) | payer MEDICARE, SELFPAY | PROVIDERS: PCP Nurse Practitioner Family; Visit Provider Internal Medicine Cardiovascular Disease | DX: I11.0 Hypertensive heart disease with heart failure (principal); I50.41 Acute combined systolic (congestive) and diastolic (congestive) heart failure; Z95.2 Presence of prosthetic heart valve; Z95.811 Presence of heart assist device; D50.9 Iron deficiency anemia, unspecified; R09.02 Hypoxemia; J43.9 Emphysema, unspecified; Z87.891 Personal history of nicotine dependence; I25.10 Atherosclerotic heart disease of native coronary artery without angina pectoris; I25.5 Ischemic cardiomyopathy; I34.0 Nonrheumatic mitral (valve) insufficiency; I25.2 Old myocardial infarction; Z99.81 Dependence on supplemental oxygen; I44.7 Left bundle-branch block, unspecified; Z95.1 Presence of aortocoronary bypass graft | CPT/HCPCS: 99214; 99215 ==

== ENCOUNTER → 2022-07-13 12:01 | Outpatient (BNVA) | payer MEDICARE, SELFPAY | PROVIDERS: PCP Nurse Practitioner Family; Visit Provider Nurse Practitioner Family | DX: I50.23 Acute on chronic systolic (congestive) heart failure (principal); Z87.891 Personal history of nicotine dependence | CPT/HCPCS: 80048; 83880; 99214 ==

== ENCOUNTER 2022-07-18 06:36 | Outpatient (CLI) | payer MEDICARE, SELFPAY ==
--- NOTE | 2022-07-18 06:30 | USCV_ITS ---
Jessica Larkin Age: 66 Gender: F : 1955 Exam Date: 07/18/2022 06:50 Ordering Phys: Trung Conway MD ([email or web address]) Technologist: JOHAN [place]am [place] [facility] [place]ication: LOW EF BP: 126 / 86 HR: 106 Rhythm: Atrial fibrillation Technical Quality: Adequate MEASUREMENTS (Male / Female) Normal Values 2D ECHO LVOT Diameter 2.0 cm LV Ejection Fraction MOD 2C 14.7 % LV Ejection Fraction 2C AL 15.1 % LA Diameter 4.1 cm LA Width 4.8 cm LA Height 4.7 cm RA Width 3.5 cm RA Height 4.0 cm Aorta at Sinotubular Diameter 2.1 cm IVC Diameter 1.9 cm M-MODE Aortic Annulus Diameter 2.5 cm LA Ao Ratio MM 1.2 MV E Point Septal Separation 1.4 cm DOPPLER AV Peak Velocity 167.0 cm/s LVOT Peak Velocity 83.0 cm/s AV Area Cont Eq vti 1.6 cm squared AV Area Cont Eq pk 1.5 cm squared MV Peak Velocity 186.0 cm/s MV Area PHT 4.6 cm squared MV E' Velocity 93.0 cm/s Mitral E to MV E' Ratio 14.6 Mitral E to LV E' Lateral Ratio 12.8 Mitral E to LV E' Septal Ratio 17.2 TR Peak Velocity 311.9 cm/s TR Peak Gradient 38.9 mmHg TR Mean Velocity 264.5 cm/s TR Mean Gradient 28.8 mmHg TR Velocity Time Integral 108.0 cm TV Peak E Velocity 63.0 cm/s Right Atrial Pressure 8.0 mmHg Pulmonary Artery Systolic Pressu 46.9 mmHg RV Acceleration Time 0.1 s RV Ejection Time 0.3 s RV AcT/ET 0.4 FINDINGS Left Ventricle LV systolic function is severely reduced with EF of 15 to 20%. Severe global hypokinesis is seen. Right Ventricle Mildly reduced RV function Right Atrium Normal-sized Left Atrium Dilated Mitral Valve Mitral annuloplasty ring is seen. Mild mitral regurgitation. Mildly elevated pressures across mitral valve. Aortic Valve Structurally normal aortic valve. No significant stenosis. Mild aortic regurgitation Tricuspid Valve Mild tricuspid regurgitation Pulmonic Valve Mild to moderate pulmonic regurgitation Pericardium Normal Aorta Normal in size IVC Appears to be normal CONCLUSIONS LV systolic function is severely reduced with EF 15 to 20%. Severe global hypokinesis is seen. Mildly reduced RV function Dilated left atrium Mitral annuloplasty ring is seen. Mild mitral regurgitation. Mildly elevated pressures across mitral valve Mild to moderate aortic regurgitation Mild tricuspid regurgitation Mild to moderate pulmonic regurgitation. Compared to prior echocardiogram from 04/2022, no significant changes are seen Messi Torres MD (Electronically Signed) Final Date: 26 July 2022 17:28 S
== END 2022-07-18 06:37 | disposition home or self-care (01) ==
LOC: RAD 06:36
PROVIDERS: PCP Nurse Practitioner Family; Visit Provider Internal Medicine Cardiovascular Disease
DX: Z95.810 Presence of automatic (implantable) cardiac defibrillator (principal); I48.91 Unspecified atrial fibrillation; I08.3 Combined rheumatic disorders of mitral, aortic and tricuspid valves
CPT/HCPCS: 93306

== ENCOUNTER → 2022-08-07 09:22 | Outpatient (BNVA) | payer MEDICARE, SELFPAY | PROVIDERS: PCP Nurse Practitioner Family; Visit Provider Nurse Practitioner Family | DX: I50.23 Acute on chronic systolic (congestive) heart failure (principal); I25.10 Atherosclerotic heart disease of native coronary artery without angina pectoris; Z87.891 Personal history of nicotine dependence | CPT/HCPCS: 99214 ==

== ENCOUNTER 2022-08-13 08:09 | Outpatient (CLI) | payer MEDICARE, SELFPAY ==
--- NOTE | 2022-08-13 08:00 | CT_ITS ---
WS: [id number] CT scan of the chest without IV contrast, additional two-dimensional coronal and sagittal reconstruct ion was performed. Clinical Data: mediastinal adenopathy Comparison: CT chest, 04/15/2022. DLP: 612.[address] scans at [facility] use at least one of these dose optimization techniques: automated e xposure control; mA and/or kV adjustment per patient size (includes targeted exams where dose is matc hed to clinical indication); or iterative reconstruction. Findings: No nodules, masses or effusions are seen. The lungs show interstitial change but no acute pneumonia i s present. There are small pleural-based densities which probably represent minimal atelectasis. The heart size is large with no pericardial effusion. Coronary artery calcification is present. The pulmo nary arterial system and thoracic aorta demonstrate no dilatations but there is calcification of the wall of the thoracic aorta.. There is unchanged hilar and mediastinal adenopathy. The upper abdomen s hows no change from before. The thoracic vertebral bodies demonstrate osteoarthritic change. There a re midline sternotomy sutures. CT/CT chest wo con [id number] Impression: 1. No change in hilar and mediastinal adenopathy. 2. Negative for acute pneumonia. 3. No change in mild interstitial process. 4. No change in cardiomegaly and coronary artery calcification.
== END 2022-08-13 08:10 | disposition home or self-care (01) ==
LOC: RAD 08:10
PROVIDERS: PCP Nurse Practitioner Family; Visit Provider Nurse Practitioner Family
DX: R59.0 Localized enlarged lymph nodes (principal)
CPT/HCPCS: 71250

== ENCOUNTER → 2022-09-18 13:37 | Outpatient (BNVA) | payer MEDICARE, SELFPAY | PROVIDERS: PCP Nurse Practitioner Family; Visit Provider Internal Medicine | DX: I25.10 Atherosclerotic heart disease of native coronary artery without angina pectoris (principal); Z95.1 Presence of aortocoronary bypass graft; I44.7 Left bundle-branch block, unspecified; I25.5 Ischemic cardiomyopathy; I34.0 Nonrheumatic mitral (valve) insufficiency; I11.0 Hypertensive heart disease with heart failure; I50.23 Acute on chronic systolic (congestive) heart failure; Z87.891 Personal history of nicotine dependence; E78.5 Hyperlipidemia, unspecified; I21.4 Non-ST elevation (NSTEMI) myocardial infarction | CPT/HCPCS: 80048; 83880; 99214 ==

== ENCOUNTER 2022-10-08 11:30 | Outpatient (CLI) | payer MEDICARE, SELFPAY ==
[2022-10-08 12:56] LABS: Anion Gap 12.9 (5-19); Blood Urea Nitrogen 21 mg/dL (8-23); Calcium 9.2 mg/dL (8.5-10.5); Carbon Dioxide 26 mmol/L (22-29); Chloride 97 mmol/L (98-107); Glomerular Filtration Rate 45.1 mL/min (90-130); Glucose 130 mg/dL (65-115); NT Pro B Type Natriuretic Pept 4880 pg/mL (0-125); Osmolality Calculated 277 mOsm/kg (285-295); Potassium 4.9 mmol/L (3.5-5.1); Sodium 131 mmol/L (136-145)
== END 2022-10-08 11:31 | disposition home or self-care (01) ==
LOC: LAB 11:32
PROVIDERS: PCP Nurse Practitioner Family; Visit Provider Internal Medicine
DX: I50.9 Heart failure, unspecified (principal); I25.10 Atherosclerotic heart disease of native coronary artery without angina pectoris
CPT/HCPCS: 36415; 80048; 83880

== ENCOUNTER 2022-10-31 10:58 | Outpatient (CLI) | payer MEDICARE, SELFPAY ==
[2022-10-31 12:33] LABS: Anion Gap 15.8 (5-19); Blood Urea Nitrogen 23 mg/dL (8-23); Calcium 9.7 mg/dL (8.5-10.5); Carbon Dioxide 24 mmol/L (22-29); Chloride 103 mmol/L (98-107); Glomerular Filtration Rate 55.6 mL/min (90-130); Glucose 95 mg/dL (65-115); NT Pro B Type Natriuretic Pept 3248 pg/mL (0-125); Osmolality Calculated 289 mOsm/kg (285-295); Potassium 4.8 mmol/L (3.5-5.1); Sodium 138 mmol/L (136-145)
== END 2022-10-31 10:59 | disposition home or self-care (01) ==
PROVIDERS: PCP Nurse Practitioner Family; Visit Provider Internal Medicine
DX: I50.9 Heart failure, unspecified (principal); J44.9 Chronic obstructive pulmonary disease, unspecified; I25.10 Atherosclerotic heart disease of native coronary artery without angina pectoris; Z79.899 Other long term (current) drug therapy
CPT/HCPCS: 36415; 80048; 83880

== ENCOUNTER → 2022-11-09 10:15 | Outpatient (BNVA) | payer MEDICARE, SELFPAY | PROVIDERS: PCP Nurse Practitioner Family; Visit Provider Nurse Practitioner Family | DX: I25.10 Atherosclerotic heart disease of native coronary artery without angina pectoris (principal); I11.0 Hypertensive heart disease with heart failure; I50.9 Heart failure, unspecified; I25.5 Ischemic cardiomyopathy; Z87.891 Personal history of nicotine dependence; Z95.1 Presence of aortocoronary bypass graft; Z79.01 Long term (current) use of anticoagulants; Z79.82 Long term (current) use of aspirin | CPT/HCPCS: 99214 ==

== ENCOUNTER 2023-01-25 13:56 | Outpatient (CLI) | payer MEDICARE, SELFPAY ==
--- NOTE | 2023-01-25 14:30 | USCV_ITS ---
Jessica Larkin Age: 67 Gender: F : 1955 Exam Date: 01/25/2023 14:47 Ordering Phys: Messi Torres M.D ([email or web address]) Technologist: DEVORA Exam Location: [facility] – [place] Indication: LOW EF PACER AND MR BP: 112 / 67 HR: 96 Rhythm: Sinus Technical Quality: Adequate MEASUREMENTS (Male / Female) Normal Values 2D ECHO LV Diastolic Diameter PLAX 4.6 cm 4.2 - 5.9 / 3.9 - 5.3 cm LV Systolic Diameter PLAX 3.8 cm LV Chamber Size 3.9 cm IVS Diastolic Thickness 0.9 cm 0.6 - 1.0 / 0.6 - 0.9 cm IVS Systolic Thickness 1.0 cm LVPW Diastolic Thickness 1.2 cm 0.6 - 1.0 / 0.6 - 0.9 cm LVPW Systolic Thickness 1.3 cm RV Chamber Size 2.1 cm LVOT Diameter 2.0 cm LV Ejection Fraction 2D Teich 20.0 % LV Ejection Fraction MOD 2C 55.0 % LV Ejection Fraction 2C AL 58.2 % LA Diameter 4.0 cm LA Width 2.8 cm LA Height 4.0 cm RA Width 2.8 cm RA Height 3.3 cm Aorta at Sinotubular Diameter 2.9 cm IVC Diameter 1.8 cm M-MODE Aortic Annulus Diameter 3.3 cm LA Ao Ratio MM 1.3 MV E Point Septal Separation 1.4 cm DOPPLER AV Peak Velocity 214.7 cm/s LVOT Peak Velocity 69.0 cm/s AV Area Cont Eq vti 1.1 cm squared AV Area Cont Eq pk 1.0 cm squared MV Peak Velocity 184.0 cm/s MV Area PHT 7.1 cm squared Mitral E to A Ratio 0.9 MV E' Velocity 81.0 cm/s Mitral E to MV E' Ratio 17.7 Mitral E to LV E' Lateral Ratio 11.6 Mitral E to LV E' Septal Ratio 38.1 TR Peak Velocity 173.6 cm/s TR Peak Gradient 12.1 mmHg TR Mean Velocity 122.3 cm/s TR Mean Gradient 7.1 mmHg TR Velocity Time Integral 44.6 cm TV Peak E Velocity 56.0 cm/s Right Atrial Pressure 3.0 mmHg Pulmonary Artery Systolic Pressu 15.1 mmHg RV Acceleration Time 0.2 s RV Ejection Time 0.3 s RV AcT/ET 0.5 FINDINGS Left Ventricle Left ventricle is normal size. LV systolic function is severely reduced with EF of 25 to 30%. Severe global hypokinesis seen. Grade 1 diastolic dysfunction Right Ventricle Mild to moderate hypokinesis Right Atrium Grossly normal Left Atrium Dilated Mitral Valve Mitral valve annuloplasty ring is seen. Mild mitral regurgitation. Mild mitral stenosis. Mean gradient across the mitral valve of 5 mmHg. Aortic Valve Aortic valve is thickened. Mild aortic stenosis with aortic valve area 1.6 cm squared with mean gradient across aortic valve of 11 mmHg. Mild aortic regurgitation. Tricuspid Valve Trace tricuspid regurgitation. Insufficient TR jet to calculate RVSP. Pulmonic Valve Not well-visualized Pericardium Normal Aorta Normal in size IVC Appears to be normal CONCLUSIONS LV systolic function severely reduced with EF of 25 to 50%. Mild to moderate RV hypokinesis Grade 1 diastolic dysfunction Left atrial dilation Mitral valve annuloplasty ring is seen. Mild mitral regurgitation Mild mitral stenosis Mild aortic stenosis. Mild aortic regurgitation Trace tricuspid regurgitation Compared to prior echocardiogram from 07/2022, LV systolic function has slightly improved. Messi Torres MD (Electronically Signed) Final Date: 02 February 2023 10:57 S
== END 2023-01-25 13:57 | disposition home or self-care (01) ==
PROVIDERS: PCP Nurse Practitioner Family; Visit Provider Internal Medicine
DX: I05.2 Rheumatic mitral stenosis with insufficiency (principal); I35.2 Nonrheumatic aortic (valve) stenosis with insufficiency; R06.02 Shortness of breath
CPT/HCPCS: 93306

== ENCOUNTER → 2023-02-12 13:03 | Outpatient (BNVA) | payer MEDICARE, SELFPAY | PROVIDERS: PCP Nurse Practitioner Family; Visit Provider Internal Medicine | DX: I44.7 Left bundle-branch block, unspecified (principal); I25.5 Ischemic cardiomyopathy; I34.0 Nonrheumatic mitral (valve) insufficiency; I11.0 Hypertensive heart disease with heart failure; I50.20 Unspecified systolic (congestive) heart failure; I25.10 Atherosclerotic heart disease of native coronary artery without angina pectoris; Z79.01 Long term (current) use of anticoagulants; Z87.891 Personal history of nicotine dependence; Z95.1 Presence of aortocoronary bypass graft | CPT/HCPCS: 99214 ==

== ENCOUNTER → 2023-08-20 14:32 | Outpatient (BNVA) | payer MEDICARE, SELFPAY | PROVIDERS: PCP Nurse Practitioner Family; Visit Provider Internal Medicine | DX: I44.7 Left bundle-branch block, unspecified (principal); I11.0 Hypertensive heart disease with heart failure; I50.20 Unspecified systolic (congestive) heart failure; I42.9 Cardiomyopathy, unspecified; I34.0 Nonrheumatic mitral (valve) insufficiency; I25.10 Atherosclerotic heart disease of native coronary artery without angina pectoris; I25.5 Ischemic cardiomyopathy; Z87.891 Personal history of nicotine dependence | CPT/HCPCS: 36415; 80048; 83880; 99214 ==

== ENCOUNTER → 2024-03-02 09:38 | Outpatient (BNVA) | payer MEDICARE, SELFPAY | PROVIDERS: PCP Nurse Practitioner Family; Visit Provider Nurse Practitioner Family | DX: I25.10 Atherosclerotic heart disease of native coronary artery without angina pectoris (principal); I11.0 Hypertensive heart disease with heart failure; I50.22 Chronic systolic (congestive) heart failure; Z87.891 Personal history of nicotine dependence | CPT/HCPCS: 36415; 80053; 99214 ==

== ENCOUNTER → 2024-09-09 14:22 | Outpatient (BNVA) | payer MEDICARE, SELFPAY | PROVIDERS: PCP Nurse Practitioner Family; Visit Provider Internal Medicine | DX: I11.0 Hypertensive heart disease with heart failure (principal); I50.22 Chronic systolic (congestive) heart failure; I44.7 Left bundle-branch block, unspecified; I25.5 Ischemic cardiomyopathy; I34.0 Nonrheumatic mitral (valve) insufficiency; I25.10 Atherosclerotic heart disease of native coronary artery without angina pectoris | CPT/HCPCS: 99214 ==

== ENCOUNTER → 2024-09-16 08:22 | Outpatient (BNVA) | payer MEDICARE, SELFPAY | PROVIDERS: PCP Nurse Practitioner Family; Visit Provider Internal Medicine Rheumatology | DX: I25.10 Atherosclerotic heart disease of native coronary artery without angina pectoris (principal); I50.22 Chronic systolic (congestive) heart failure; E03.9 Hypothyroidism, unspecified; I25.5 Ischemic cardiomyopathy; D50.9 Iron deficiency anemia, unspecified | CPT/HCPCS: 80048; 80061; 80069; 83036; 83880 ==

== ENCOUNTER → 2025-03-09 15:21 | Outpatient (BNVA) | payer MEDICARE, SELFPAY | PROVIDERS: PCP Nurse Practitioner Family; Visit Provider Internal Medicine | DX: I11.0 Hypertensive heart disease with heart failure (principal); I50.20 Unspecified systolic (congestive) heart failure; I44.7 Left bundle-branch block, unspecified; I25.5 Ischemic cardiomyopathy; I34.0 Nonrheumatic mitral (valve) insufficiency; I25.10 Atherosclerotic heart disease of native coronary artery without angina pectoris; Z79.01 Long term (current) use of anticoagulants; Z79.82 Long term (current) use of aspirin; Z95.1 Presence of aortocoronary bypass graft; Z87.891 Personal history of nicotine dependence | CPT/HCPCS: 99214 ==

== ENCOUNTER 2025-04-09 09:22 | Outpatient (CLI) | payer MEDICARE, SELFPAY ==
--- NOTE | 2025-04-09 10:00 | USCV_ITS ---
Jessica Larkin Age: 69 Gender: F : 1955 Exam Date: 04/09/2025 10:14 Ordering Phys: Messi Torres M.D ([email or web address]) Technologist: CALLI [place] [facility] [place]: SoB, CP BP: 114 / 60 HR: 80 Rhythm: Sinus Technical Quality: Adequate MEASUREMENTS (Male / Female) Normal Values 2D ECHO LV Diastolic Diameter PLAX 5.5 cm 4.2 - 5.9 / 3.9 - 5.3 cm IVS Diastolic Thickness 0.9 cm 0.6 - 1.0 / 0.6 - 0.9 cm IVS Systolic Thickness 1.9 cm LVPW Diastolic Thickness 1.3 cm 0.6 - 1.0 / 0.6 - 0.9 cm LVPW Systolic Thickness 1.3 cm LVOT Diameter 2.0 cm LV Ejection Fraction 2D Teich 45.1 % LV Ejection Fraction MOD 4C 63.9 % LV Ejection Fraction MOD 2C 52.0 % LV Ejection Fraction 2C AL 51.2 % LA Diameter 4.1 cm RA Systolic Volume 4C AL 54.1 ml RA Systolic Volume 4C MOD 51.2 ml LA Sys Volume AL 59.0 cm cubed LA Sys Volume Index AL 31.2 cm cubed/m squared Aorta at Sinotubular Diameter 2.3 cm IVC Diameter 1.8 cm M-MODE LA Ao Ratio MM 2.0 AV Cusp Separation MM 1.4 cm DOPPLER AV Peak Velocity 179.8 cm/s MV Peak Velocity 148.0 cm/s MV Area PHT 6.6 cm squared Mitral E to A Ratio 1.0 TR Peak Velocity 95.0 cm/s TR Peak Gradient 3.6 mmHg TV Peak E Velocity 75.0 cm/s PV Peak Velocity 98.0 cm/s FINDINGS Left Ventricle Left ventricular is dilated. LV systolic function is mildly reduced with EF of 45-50%. Mild global hypokinesis. Right Ventricle Mildly reduced RV function Right Atrium Normal in size Left Atrium Dilated Mitral Valve Mitral annular annuloplasty ring seen. Mild mitral regurgitation. Mild mitral stenosis with mean gradient of 5mmHg. Aortic Valve Aortic valve is thickened. Mild aortic stenosis with mean gradient of 8 mmHg. Tricuspid Valve Insufficient TR jet to calculate RVSP Pulmonic Valve Not well visualized Pericardium Normal Aorta Normal in size IVC Appears to be normal CONCLUSIONS LV systolic function is mildly reduced with EF of 45-50% Mildly hypokinetic RV Left atrial dilation Mitral annular annuloplasty ring seen. Mild mitral regurgitation. Mild mitral stenosis Mild aortic stenosis Compared to prior echocardiogram from 2023, LV systolic function has improved. Messi Torres MD (Electronically Signed) Final Date: 14 April 2025 10:51 S
== END 2025-04-09 09:23 | disposition home or self-care (01) ==
PROVIDERS: PCP Nurse Practitioner Family; Visit Provider Internal Medicine
DX: R07.9 Chest pain, unspecified (principal); R06.02 Shortness of breath; Z95.2 Presence of prosthetic heart valve; I51.7 Cardiomegaly; I34.0 Nonrheumatic mitral (valve) insufficiency; I34.2 Nonrheumatic mitral (valve) stenosis; I35.9 Nonrheumatic aortic valve disorder, unspecified; I35.0 Nonrheumatic aortic (valve) stenosis; I36.1 Nonrheumatic tricuspid (valve) insufficiency
CPT/HCPCS: 93306